=== PATIENT | female | born 1990 | race African-American/Black ===

== ENCOUNTER 2021-05-14 22:41 | Emergency (ER) | payer OTHER ==
--- OUTSIDE RECORDS SUMMARY | 2021-05-14 22:47 | XMS REPORT | Continuity of Care Document ---
:1990 Author Organization [facility] t Address [address] [place] [address] Care Team Providers Name Role Phone Unknown Primary Care Physician Unavailable Palmer WANG Attending Clinician Georgi Magana DO Attending Clinician PALMER Attending Clinician Unavailable Radha Tello Attending Clinician Payers Payer Name Policy Type Policy Number Effective Date Expiration Date S art [employer] [id number] 2016 00:00:00 Problems Condition Condition Condition Status Onset Resolution Last Treating Co mments Source Name Details Category Date Date Treatment Clinician Date History of History of Problem Active U [facility] herpes herpes [place] of genital[place] genitalis [place] Supervisio Supervisio Problem Active U nivers n of n of ity of normal normal [place] Phys ici ans Encounter Encounter Problem Active Uni vers for for [place] of Physici ans test test result result with with physical physical examinatio examinatio n n Scoliosis Scoliosis Problem Active Uni vers [place] of [place] [facility] Nausea Nausea Problem Active [facility] [place] [facility] UTI UTI Problem Active Univers (urinary (urinary ity of tract tract [place] infection) infection) Ph ysici ans 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 ity of [place] [facility] ans Anemia Anemia Problem Active [facility] [place] [facility] Need for Need for Problem Active Unive rs influenza influenza [place] of vaccin[place] vaccinatio [place] n Physici ans Genital Genital Problem Active Univers herpes herpes it[place] of [place] Physici ans Encounter Encounter Problem Active Uni vers for for [place] Physici ans Breech Breech Problem Active Univers presentati presentati it [place] of [place], [place], [place] 1 1 Physici ans Screen for Screen for Problem Active U nivers STD STD [place] of (sexually (sexually [place] transmitte transmitte Ph ysici d disease) d disease) an s Well woman Well woman Problem Active U nivers exam exam [place] of [place] [facility] ans General General Problem Active Univers counseling counseling [place] of and advice and advice [place] for for Physici contracept contracept an s candie candie management management Vitamin D Vitamin D Problem Active Uni vers deficiency deficiency it y of [place] Physici ans BV BV Problem Active Univers (bacterial (bacterial it y of vaginosis) vaginosis) [place] Irregular Irregular Problem Active Uni vers menses menses ity of [place] Physici ans Problem Active Uni vers test test ity of negative negative [place] Physici ans Allergies, Adverse Reactions, Alerts Allergy Allergy Status Severity Reaction(s) Onset Inactive Treating Comm ents Source Name Type Date Date Clinician Aspirin Allergy Active Swelling Due to [facility] to 07-15 ulcerativ Health substanc 00:00: e colitis e 00 aspirin Allergy Active Univers to drug ity of (finding [place] ) Physici ans aspirin Drug Active [facility] aspirin Drug Active [facility] aspirin Drug Active [facility] aspirin Drug Active [facility] aspirin Drug Active [facility] aspirin Drug Active [facility] aspirin Drug Active [facility] aspirin Drug Active [facility] aspirin Drug Active [facility] aspirin Drug Active [facility] aspirin Drug Active [facility] Social History Social Habit Start Date Stop Date Quantity Comments Source ASSERTION 2021-02-22 [facility] 00:[facility] Std Drinks [facility] Alcohol Comment Exposure to Not sure [facility] SARS-CoV-2 (event) Alcohol intake 2021-04-26 2021-04-26 Ex-drinker [place] [facility] 00:00:00 00:00:00 (finding) History [facility] 2021-04-26 2021-04-26 1 [facility] Alcohol Frequency 00:00:00 00:00:00 History SDOH 2021-04-26 2021-04-26 1 [facility] Alcohol Binge 00:00:00 00:00:00 Tobacco use and 2021-03-12 2021-03-12 Smokeless tobacco [facility] exposure 00:00:00 00:00:00 non-user Sex Assigned At [birth year] [place] [facility] 00:00:00 00:00:00 Smoking Status Start Date Stop Date Source Never smoked tobacco [facility] Medications Ordered Filled Start Stop Current Ordering Indication Dosage Frequency Signature Comments Components Source Medication Medication Date Date Medication? Clinician (SIG) Name Name metoclopram Yes 10mg Q.25D Take 10 mg [facility] vitaliy 1-20 by mouth 4 Health (Reglan) 10 13:43: (four) MG tablet 10 times a day. ondansetron 2021- Yes [id number] 4mg Take 1 [facility] ODT 1-20 02-04 tablet (4 Health (Zofran-ODT 00:00: 05:59 mg total) ) 4 MG 00 :00 by mouth disintegrat every 8 ing tablet (eight) hours if needed for nausea or vomiting for up to 14 days. aspirin 81 2020-04- Yes [id number] 81mg QD Chew 1 UT MG chewable 2-23 12-24 tablet (81 H ealth tablet 00:00: 05:59 mg total) 00 :00 1 (one) time each day. Prenat-Fe 2020-04 Yes [id number] One tab UT Poly-Methfo 2-07 daily Health l-FA-DHA 00:00: (Vitafol 00 Ultra) 29-0.6-0.4- 200 MG capsule Doxylamine- 2020-04- Yes [id number] 1{tbl} QD Take 1-2 UT Pyridoxine 2-07 03-08 tablets by Lorne dill (Diclegis) 00:00: 05:59 mouth at 10-10 MG 00 :00 night if tablet needed delayed-rel (vomiting) ease . Can increase to 4x/day meclizine Yes TAKE 1 UT (Antivert) 7-21 TABLET BY Heal th 25 MG 00:00: MOUTH tablet 00 THREE TIMES A DAY NEEDED FOR DIZZINESS valACYclovi 2019-04 Yes 500mg 500 mg. UT r (Valtrex) 1-06 Health 500 MG 00:00: tablet 00 valACYclovi valACYclovi 2019-04 Yes AZEEMA 1 QD TAKE 1 Univers r HCl - 500 r HCl - 500 1-06 MOOSA M.D. TABLET ity of MG Oral MG Oral 00:00: DAILY. [place] Tablet Tablet 00 Physici ans Vitamin D Vitamin D Yes AZEEMA 1 TAKE 1 Univers (Ergocalcif (Ergocalcif 5-10 MOOSA M.D. CAPSULE ity of abigail) 1.25 abigail) 1.25 00:00: WEEKLY [place] MG (92930 MG (83111 00 Physi ci UT) Oral UT) Oral ans Capsule Capsule Immunizations Ordered Immunization Filled Immunization Date Status Commen ts Source Name Name Fluzone Quadrivalent 2017-01-22 Completed [facility] ersity of 0.5 ML Intramuscular 00:00:00 [facility] Suspension Prefilled Syringe Tdap (Adacel) 2017-01-08 Completed [facility] 00:00:00 Marek Calderón ns Vital Signs Vital Name Observation Time Observation Value Comments Source Systolic blood 2021-04-25 119 mm[Hg] [facility] pressure 19:43:00 Diastolic blood 2021-04-25 70 mm[Hg] [facility] pressure 19:43:00 Body temperature 2021-04-25 36.11 Catherine [facility] 19:43:00 Body weight 2021-04-25 78.382 kg [facility] 19:43:00 BMI 2021-04-25 27.89 kg/m2 [facility] 19:43:00 Height/Length 2021-04-23 167.6 cm Measured 08:28:16 Weight Dosing 2021-04-23 74.80 kg 08:28:16 Height/Length 2021-04-23 167.6 cm Measured 08:27:13 Weight Dosing 2021-04-23 74.80 kg 08:27:13 Height/Length 2021-04-23 167.6 cm Measured 08:27:10 Weight Dosing 2021-04-23 74.80 kg 08:27:10 Height/Length 2021-04-23 167.6 cm Measured 08:27:06 Weight Dosing 2021-04-23 74.80 kg 08:27:06 Height/Length 2021-04-23 167.6 cm Measured 08:26:48 Weight Dosing 2021-04-23 74.80 kg 08:26:48 Systolic blood 2020-04-11 145 mm[Hg] Location: [place]; [facility] 15:02:00 Position: [place] Physician s Sitting Diastolic blood 2020-04-11 82 mm[Hg] Location: [place]; [facility] 15:02:00 Position: [place] Physician s Sitting Body height 2020-04-11 66 [in_us] University 15:02:00 [place] [facility] s Weight 2020-04-11 180.375 [lb_av] University o f 15:02:00 [place] Phys[facility] s Body mass index 2020-04-11 29.11 kg/m2 University o f (BMI) [Ratio] 15:02:00 [place] [facility] [place] Body temperature 2020-04-11 97.5 [degF] Method: [facility] 15:02:00 Temporal [place] Physician s Heart Rate 2020-04-11 88 /min [facility] 15:02:00 [place] Phys[facility] s Systolic blood 2020-02-10 103 mm[Hg] [facility] 09:17[facility] Position: [place] Physician s Sitting Diastolic blood 2020-02-10 71 mm[Hg] [facility] Position: [place] Physician s Sitting Body height 2020-02-10 66 [in_us] [facility] 09:17:00 [place] Phys[facility] s Weight 2020-02-10 175 [lb_av] [facility] 09:17:00 [place] Physician s Body mass index 2020-02-10 28.25 kg/m2 University o f (BMI) [Ratio] 09:17:00 [place] Physicia ns Heart Rate 2020-02-10 88 /min [facility] 09:17:00 [place] Phys[facility] s Body temperature 2020-02-10 97.5 [degF] Method: [facility] 09:17:00 Temporal [place] Physician s Systolic blood 2019-11-18 123 mm[Hg] Location: [place]; [facility] 09:50:00 Position: [place] Physician s Sitting Diastolic blood 2019-11-18 73 mm[Hg] Location: [place]; [facility] 09:50:00 Position: [place] Physician s Sitting Body height 2019-11-18 66 [in_us] University of 09:50:00 [place] Physician s Weight 2019-11-18 171 [lb_av] [facility] 09:50:00 [place] Phys[facility] s Body mass index 2019-11-18 27.6 kg/m2 University o f (BMI) [Ratio] 09:50:00 [place] [facility] Body temperature 2019-11-18 98.2 [degF] [facility] 09:50:00 [place] Phys[facility] s Heart Rate 2019-11-18 67 /min [facility] 09:50:00 [place] Phys[facility] s BP Systolic 2018-08-05 116 mm[Hg] Location: [place]; [facility] 09:10:00 Position: [place] Physician s Sitting BP Diastolic 2018-08-05 71 mm[Hg] Location: [place]; [facility] 09:10:00 Position: [place] Physician s Sitting Height 2018-08-05 66 [in_us] [facility] 09:10:00 [place] Phys[facility] s Weight 2018-08-05 160 [lb_av] [facility] 09:10:00 [place] Physician s Body Mass Index 2018-08-05 25.82 kg/m2 University o f Calculated 09:10:00 [place] Phys[facility] s Heart Rate 2018-08-05 76 /min [facility] 09:10:00 [place] Phys[facility] s BP Systolic 2017-08-04 132 mm[Hg] Location: [place]; [facility] 15:15:00 Position: [place] Physician s Sitting BP Diastolic 2017-08-04 75 mm[Hg] Location: [place]; [facility] 15:15:00 Position: [place] Physician s Sitting Height 2017-08-04 66 [in_us] University 15:15:00 [place] [facility] s Weight 2017-08-04 166 [lb_av] [facility] 15:15:00 [place] Phys[facility] s Body Mass Index 2017-08-04 26.79 kg/m2 University o f Calculated 15:15:00 [place] Phys[facility] s Heart Rate 2017-08-04 82 /min [facility] 15:15:00 [place] Phys[facility] s BP Systolic 2017-05-01 135 mm[Hg] Location: [place]; [facility] 10:08:00 Position: [place] Physician s Sitting BP Diastolic 2017-05-01 60 mm[Hg] Location: [place]; [facility] 10:08:00 Position: [place] Physician s Sitting Height 2017-05-01 66 [in_us] [facility] 10:08:00 [place] [facility] s Weight 2017-05-01 164 [lb_av] [facility] 10:08:00 [place] Physician s Body Mass Index 2017-05-01 26.47 kg/m2 University o f Calculated 10:08:00 [place] [facility] s Heart Rate 2017-05-01 84 /min University of 10:08:00 [place] Physician s BP Systolic 2017-04-02 123 mm[Hg] Location: [facility] 13:16:00 Position: [place] Physician s Sitting BP Diastolic 2017-04-02 76 mm[Hg] Location: [facility] 13:16:00 Position: [place] Physician s Sitting Height 2017-04-02 66 [in_us] University of 13:16:00 [place] [facility] s Weight 2017-04-02 168 [lb_av] University 13:16:00 [place] Phys[facility] s Body Mass Index 2017-04-02 27.12 kg/m2 University o f Calculated 13:16:00 [place] Phys[facility] s Heart Rate 2017-04-02 76 /min [place] of 13:16:00 [place] Physician s BP Systolic 2017-03-12 126 mm[Hg] Location: [facility] 09:34:00 Position: [place] Physician s Sitting BP Diastolic 2017-03-12 74 mm[Hg] Location: [facility] 09:34:00 Position: [place] Physician s Sitting Height 2017-03-12 66 [in_us] [facility] 09:34:00 [place] [facility] s Weight 2017-03-12 189 [lb_av] [facility] 09:34:00 [place] [facility] s Body Mass Index 2017-03-12 30.51 kg/m2 [place] [facility] f Calculated 09:34:00 [place] [facility] s Heart Rate 2017-03-12 90 /min [facility] 09:34:00 [place] [facility] s BP Systolic 2017-03-05 118 mm[Hg] Location: [facility] 09:12:00 Position: [place] Physician s Sitting BP Diastolic 2017-03-05 70 mm[Hg] Location: [facility] 09:12:00 Position: [place] Physician s Sitting Height 2017-03-05 66 [in_us] [facility] 09:12:00 [place] [facility] s Weight 2017-03-05 189 [lb_av] [place] [facility] 09:12:00 [place] [facility] s Body Mass Index 2017-03-05 30.51 kg/m2 University o f Calculated 09:12:00 [place] [facility] s BP Systolic 2017-02-25 125 mm[Hg] [facility]:01:[facility] Position: [place] Physician s Sitting BP Diastolic 2017-02-25 74 mm[Hg] Location: [place]; [place] [facility] 09:01:00 Position: [place] Physician s Sitting Height 2017-02-25 66 [in_us] University of 09:01:00 [place] [facility] s Weight 2017-02-25 186 [lb_av] University of 09:01:00 [place] [facility] s Body Mass Index 2017-02-25 30.02 kg/m2 University o f Calculated 09:01:00 [place] [facility] s Heart Rate 2017-02-25 89 /min University of 09:01:00 [place] [facility] s BP Systolic 2017-02-20 114 mm[Hg] Location: [place]; [facility] 15:37:00 Position: [place] Physician s Sitting BP Diastolic 2017-02-20 70 mm[Hg] Location: [place]; [facility] 15:37:00 Position: [place] Physician s Sitting Height 2017-02-20 66 [in_us] University 15:37:00 [place] [facility] s Weight 2017-02-20 187 [lb_av] University of 15:37:00 [place] [facility] s Body Mass Index 2017-02-20 30.18 kg/m2 University o f Calculated 15:37:00 [place] [facility] s Heart Rate 2017-02-20 82 /min [facility] of 15:37:00 [place] [facility] s BP Systolic 2017-02-19 106 mm[Hg] Location: [place]; [place] [facility] 10:39:00 Position: [place] Physician s Sitting BP Diastolic 2017-02-19 73 mm[Hg] Location: [place]; [place] [facility] 10:39:00 Position: [place] Physician s Sitting Height 2017-02-19 66 [in_us] University of 10:39:00 [place] [facility] s Heart Rate 2017-02-19 93 /min University of 10:39:00 [place] [facility] s Weight 2017-02-19 188 [lb_av] University of 10:39:00 [place] [facility] s Body Mass Index 2017-02-19 30.34 kg/m2 University o f Calculated 10:39:00 [place] [facility] s BP Systolic 2017-02-19 106 mm[Hg] Location: [place]; [facility] 10:30:00 Position: [place] Physician s Sitting BP Diastolic 2017-02-19 73 mm[Hg] Location: [place]; [facility] 10:30:00 Position: [place] Physician s Sitting Height 2017-02-19 66 [in_us] University of 10:30:00 [place] [facility] s Heart Rate 2017-02-19 93 /min [facility] 10:30:00 [place] [facility] s BP Systolic 2017-02-05 102 mm[Hg] Location: [facility] 10:15:00 Position: [place] Physician s Sitting BP Diastolic 2017-02-05 60 mm[Hg] Location: [facility]; [facility] 10:15:00 Position: [place] Physician s Sitting Height 2017-02-05 66 [in_us] [facility] 10:15:00 [place] [facility] s Weight 2017-02-05 186 [lb_av] [facility] 10:15:00 [place] [facility] s Body Mass Index 2017-02-05 30.02 kg/m2 [place] [facility] Calculated 10:15:00 [place] [facility] s BP Systolic 2017-01-22 106 mm[Hg] Location: [facility] 09:47:00 Position: [place] Physician s Sitting BP Diastolic 2017-01-22 61 mm[Hg] Location: [facility] 09:47:00 Position: [place] Physician s Sitting Height 2017-01-22 66 [in_us] [facility] 09:47:00 [place] [facility] s Heart Rate 2017-01-22 102 /min [facility] 09:47:00 [place] [facility] s Weight 2017-01-22 185 [lb_av] [facility] 09:47:00 [place] [facility] Body Mass Index 2017-01-22 29.86 kg/m2 [facility] Calculated 09:47:00 [place] Phys[facility] Procedures Procedure Date / Time Performing Clinician Source Performed [QL] TSH, 3RD 2020-04-11 00:00:00 [facility] GENERATION Physicians [QL] T4, FREE 2020-04-11 00:00:00 [facility] Physicians [QL] VITAMIN D, 2020-04-11 00:00:00 [facility] 25-HYDROXY, LC/MS/MS Physicians [QL] VITAMIN B12 2020-04-11 00:00:00 [facility] Physicians [QL] HCG, TOTAL, QN 2020-03-27 00:00:00 [facility] Physicians [Q] CHLAMYDIA/N. 2020-02-10 00:00:00 [facility] GONORRHOEAE RNA, TMA Physicians [QL] BV/ VAGINITIS 2020-02-10 00:00:00 [facility] PANEL DNA PROBE AFFIRM Physician s [Q] HEPATITIS B SURFACE 2020-02-10 00:00:00 [facility] ANTIGEN W/REFL CONFIRM Physician s [Q] HIV-1/2 Antigen and 2020-02-10 00:00:00 [facility] Antibodies, Fourth Physicians Generation, with Reflexes [QL] HEPATITIS C 2020-02-10 00:00:00 [facility] ANTIBODY Physicians [QL] RPR (DX) W/REFL 2020-02-10 00:00:00 [facility] TITER AND CONFIRMATORY Physician s TESTING [L] Comp. Metabolic 2019-11-18 00:00:00 [facility] Panel (13) Physicians [QL] CBC (INCLUDES 2019-11-18 00:00:00 [facility] DIFF/PLT) Physicians [QL] HEMOGLOBIN A1c 2019-11-18 00:00:00 [facility] Physicians [QL] LIPID PANEL 2019-11-18 00:00:00 [facility] Physicians [QL] T4, FREE 2019-11-18 00:00:00 [facility] Physicians [QL] TSH, 3RD 2019-11-18 00:00:00 [place] [facility] GENERATION Physicians [QL] CMP W/EGFR 2019-11-18 00:00:00 [place] [facility] Physicians [Q] THINPREP TIS PAP 2019-11-18 00:00:00 [facility] REFLEX HPV mRNA E6/E7 Physicians [QL] BV/ VAGINITIS 2019-11-18 00:00:00 [facility] PANEL DNA PROBE AFFIRM Physician s [L] Vitamin D, 2018-08-05 00:00:00 [facility] 25-Hydroxy, Total - Physicians Esoterix [QLH] CBC (INCLUDES 2018-08-05 00:00:00 [facility] DIFF/PLT) Physicians [QLH] CMP W/EGFR 2018-08-05 00:00:00 [facility] Physicians [QLH] HEMOGLOBIN A1c 2018-08-05 00:00:00 [facility] Physicians [QLH] LIPID PANEL 2018-08-05 00:00:00 [facility] Physicians [QLH] T4, FREE 2018-08-05 00:00:00 [place] [facility] Physicians [QLH] TSH, 3RD 2018-08-05 00:00:00 [place] [facility] GENERATION Physicians [Q] HIV-1/2 Antigen and 2018-08-05 00:00:00 [facility] Antibodies, Fourth Physicians Generation, with Reflexes [QH] HEPATITIS B 2018-08-05 00:00:00 [facility] SURFACE ANTIGEN W/REFL Physician s CONFIRM [QH] HIV AB, HIV 1/2, 2018-08-05 00:00:00 [facility] EIA, WITH REFLEXES Physicians [QLH] HEPATITIS C 2018-08-05 00:00:00 [facility] ANTIBODY Physicians [QLH] RPR 2018-08-05 00:00:00 [place] [facility] Physicians . [facility] - GC/Chlamydia 2018-08-05 00:00:00 [facility] Physicians . [facility] VPIII 2018-08-05 00:00:00 [facility] (BV Panel) Physicians [Q] HIV-1/2 Antigen and 2017-02-20 00:00:00 [facility] Antibodies, Fourth Physicians Generation, with Reflexes [QH] STREPTOCOCCUS, 2017-02-20 00:00:00 [facility] GROUP B CULTURE Physicians (Genital Strep Screen) [QLH] CBC (INCLUDES 2017-02-20 00:00:00 [facility] DIFF/PLT) Physicians [QLH] RPR 2017-02-20 00:00:00 [place] [facility] Physicians Plan of Care Planned Activity Planned Date Details Comments Source Diagnostic Test 2020-04-11 [QL] TSH, 3RD [facility] Pending 00:00:00 GENERATION [code = Physician s [QL] TSH, 3RD GENERATION] Diagnostic Test 2020-04-11 [QL] T4, FREE [code [facility] Pending 00:00:00 = [QL] T4, FREE] Physicians Diagnostic Test 2020-04-11 [QL] VITAMIN D, [facility] Pending 00:00:00 25-HYDROXY, LC/MS/MS Physici ans [code = [QL] VITAMIN D, 25-HYDROXY, LC/MS/MS] Diagnostic Test 2020-04-11 [QL] VITAMIN B12 [facility] Pending 00:00:00 [code = [QL] VITAMIN Physici ans B12] Encounters Start End Encounter Admission Attending Care Care Encounter Source Date/Time Date/Time Type Type Clinicians Facility Department ID 2021-05-08 Outpatient [facility] [id number] [place] 09:45:24 Health 2021-04-25 2021-04-25 Initial ADAMARIS Chakraborty [facility] [id number] [place] 13:40:00 14:15:12 [facility] SUGAR [id number] H [facility] [id number] [id number] AND 2 WOMENS 2020-06-26 2020-06-26 Patient [facility] [id number] 00:00:00 00:00:[address] PRIMARY [id number] [facility] [id number] PAVILLION [id number] [facility] 2020-04-11 2020-04-11 ADAMARIS [facility] [id number] Univers 14:40:00 14:40:00 t; [facility]ADO M.D. Physici ans 2020-02-10 2020-02-10 Sara CHAKRABORTY [facility] Women's [id number] Univers 09:10:00 09:10:00 t; JOHAN CHAKRABORTY [facility] Jennifer PRADO M.D. Physici ans 2019-11-18 2019-11-18 Sara CHAKRABORTY [facility] Women's [id number] Univers 09:50:00 09:50:00 t; JOHAN CHAKRABORTY [facility] Jennifer PRADO M.D. Physici ans 2019-05-11 2019-05-11 [facility] [id number] 00:00:00 00:00:00 Janett Garcia EFFICIENCY ANALYST [id number] [facility] [id number] MATERNAL [id number] & CHILD [address] [place] [address] 2019-04-11 2019-04-11 Emergency [facility] MIGUEL ANGEL [id number] 20:30:00 20:30:00 [facility] 2018-08-05 2018-08-05 ADAMARIS Fuchs [facility] [id number] Univers 09:20:00 09:20:00 t; JOHAN CHAKRABORTY, [facility] 2017-08-04 2017-08-04 Appointshaquille CHAKRABORTY [facility] Women's [id number] Univers 15:00:00 15:00:00 t; JOHAN CHAKRABORTY, [facility] 2017-05-01 2017-05-01 Appointshaquille CHAKRABORTY [facility] Women's [id number] Univers 10:10:00 10:10:00 t; JOHAN CHAKRABORTY, [facility] Jennifer [facility]ADO [facility] 2017-04-02 2017-04-02 Appointshaquille CHAKRABORTY [facility] Women's [id number] Univers 13:00:00 13:00:00 t; JOHAN CHAKRABORTY [facility] Jennifer [facility] 2017-03-12 2017-03-12 Appointshaquille CHAKRABORTY [facility] Womens [id number] Univers 09:20:00 09:20:00 t; [facility] 2017-03-05 2017-03-05 Appointshaquille CHAKRABORTY [facility] Women's [id number] Univers 09:20:00 09:20:00 t; [facility] 2017-02-25 2017-02-25 Appointshaquille CHAKRABORTY [facility] Womens [id number] Univers 09:00:00 09:00:00 t; JOHAN [facility]ORTY [facility] 2017-02-20 2017-02-20 Appointshaquille CHAKRABORTY [facility] Womens [id number] Univers 15:00:00 15:00:00 t; JOHAN [facility]AKRABORTY [facility] 2017-02-19 2017-02-19 Appointmen PALMER, ADAMARIS [facility]'s [id number] Univers 10:20:00 10:20:00 t; JOHAN CHAKRABORTY Romeo ity federico PRADO M.D. [facility].D. Physici ans 2017-02-05 2017-02-05 Appointmen PALMER, ADAMARIS UTP [id number] Univers 10:20:00 10:20:00 t; JOHAN CHAKRABORTY ity of Jennifer PRADO [facility].Lj. Physici ans 2017-01-22 2017-01-22 Appointmen PALMER, UTP UTP [id number] Univers 09:40:00 09:40:00 t; JOHAN CHAKRABORTY ity federico PRADO M.D. [facility].Lj. Physici ans 2017-01-08 2017-01-08 Appointmen PALMER, ADAMARIS UTP [id number] Univers 09:20:00 09:20:00 t; JOHAN CHAKRABORTY ity federico PRADO [facility].D. [facility]ici [facility] 2016-12-25 2016-12-25 Appointmen PALMER, UTP UTP [id number] Univers 09:30:00 09:30:00 t; JOHAN CHAKRABORTY ity federico PRADO M.D. [facility] 2016-12-11 2016-12-11 Appointmen PALMER, UTP UTP [id number] Univers 09:30:00 09:30:00 t; JOHAN CHAKRABORTY ity federico PRADO M.D. [facility] 2016-11-28 2016-11-28 Appointmen PALMER, UTP UTP [id number] Univers 09:30:00 09:30:00 t; JOHAN CHAKRABORTY ity federico PRADO M.D. [facility] 2016-11-14 2016-11-14 Appointmen PALMER, UTP UTP [id number] Univers 09:30:00 09:30:00 t; JOHAN CHAKRABORTY ity federico PRADO M.D. [facility] 2016-10-20 2016-10-20 Appointmen PALMER, UTP UTP [id number] Univers 12:30:00 12:30:00 t; KEVINVONDAJOHAN, itweston DEANNSCJennifer [place] Jennifer Physici ans 2016-10-17 2016-10-17 Appointmen ADAMARIS CHAKRABORTY UTP [id number] Univers 13:00:00 13:00:00 t; KEVINVONDA JOHAN itweston Jennifer PRADO [place] Jennifer Physici ans 2016-10-02 2016-10-02 Appointmen ADAMARIS CHAKRABORTY UTP [id number] Univers 14:00:00 14:00:00 t; KEVINVONDA JOHAN itweston Jennifer PRADO [place] Jennifer Physici ans 2016-09-22 2016-09-22 Appointmen ADAMARIS CHAKRABORTY UTP [id number] Univers 12:30:00 12:30:00 t; KEVINVONDA JOHAN itweston Jennifer PRADO [place] Jennifer Physici ans 2016-08-25 2016-08-25 Appointmen ADAMARIS CHAKRABORTY UTP [id number] Univers 12:00:00 12:00:00 t; JOHAN CHAKRABORTY itweston Jennifer [facility] 2016-07-28 2016-07-28 Appointmen ADAMARIS CHAKRABORTY UTP [id number] Univers 12:00:00 12:00:00 t; JOHAN CHAKRABORTY itweston Jennifer [facility] Results Test Description Test Time Test Comments Results Result Comments Source [QL] T4, FREE 2020-04-18 14:13:00 Test Item Value Reference Range Interpretation Comme nts T4, FREE (test code = T4, FREE) 1.2 ng/dl 0.8-1.8 N [facility][QL] TSH, 3RD [id number] 14:13:00 Test Item Value Reference Range Interpretation Comments TSH; Normal (test 0.64 {MIU/L} N Reference Range code = 09657-4) > or = 20 Years 0.40-4.5 0 Range s First trimes ter 0.26-2.66 Second trimeste r 0.55-2.73 Third trimester 0.43-2.91 [facility][QL] VITAMIN [id number] 14:13:00 Test Item Value Reference Range Interpretation Comments VITAMIN B12 (test code = VITAMIN 720 pg/ml 200-1100 N B12) [facility][QL] VITAMIN D, 25-HYDROXY, LC/MS/[id number] 14:13:00 Test Item Value Reference Range Interpretation Comments VITAMIN 13 ng/ml 30-100 Vitamin D Statu s D,25-OH,TOTAL,IA 25-OH Vitam in D: (test code = VITAMIN Deficie ncy: D,25-OH,TOTAL,IA) <20 ng/mLInsufficie ncy: 20 - 29 ng/mLOptimal: > or = 30 n g/mL For 25-OH Vitamin D testing on patients on D2-supplementat ion and patients for wh om quantitation of D2 and D3 fractions is re quired, the QuestAssure D(TM)25-OH VIT D, (D2,D3), LC/MS/MS is recommended: order code 22808 (pat ients >2yrs).See Note 1 Note 1 For additional information, pl ease refer to http://educatio nQlika/fa q/ANB242 (This link is b eing provided for informational/e ducational purposes only.) [facility][QL] HCG, TOTAL, [id number] 14:58:00 Test Item Value Reference Range Interpretation Comments HCG, TOTAL, QN <3 N Reference Ran geNon or (test code = HCG, premenopau elizabeth TOTAL, QN) <5Postmenopausa l <10 Values fr om different assay methods m ay vary.The use of this assay t o monitor or to diagnose patien ts with cancer or any conditio n unrelatedto has n ot been cleared or approved byt he FDA or the racing driver of the assay. [facility][O] Urine Test (in office)2020-02-10 09:22:00 Test Item Value Reference Range Interpretation Comments Test, Urine; Normal (test negative N code = 2106-3) [facility][Q] HIV-1/2 Antigen and Antibodies, Fourth Generation, with [id number] 00:00:00 Test Item Value Reference Range Interpretation Comments HIV AG/AB, 4TH GEN; TNP N TEST NOT PERFORMED No Normal (test code = suitable specimen 63042-6) received. [facility][Q] HEPATITIS B SURFACE ANTIGEN W/REFL CONFIRM 2020-02-10 00:00:00 Test Item Value Reference Range Interpretation Comments HEPATITIS B SURFACE TNP N TEST NOT PERFORMED No ANTIGEN; Normal (test suitab le specimen code = 5195-3) received. [facility][QL] HEPATITIS C [id number] 00:00:00 Test Item Value Reference Range Interpretation Comments HEPATITIS C ANTIBODY; TNP N TEST N OT PERFORMED No Normal (test code = suitable specimen 00315-5) received. [facility][QL] BV/ VAGINITIS PANEL DNA PROBE AFFIRM 2020-02-10 00:00:00 Test Item Value Reference Range Interpretation Comments TRICHOMONAS: (test code = NOT DETECTED NOT DETECTED N TRICHOMONAS:) GARDNERELLA: (test code = NOT DETECTED NOT DETECTED N GARDNERELLA:) SINDI: (test code = SINDI:) NOT DETECTED NOT DETECTED N [facility][Q] CHLAMYDIA/N. GONORRHOEAE RNA, [id number] 00:00:00 Test Item Value Reference Range Interpretation Comments CHLAMYDIA NOT DETECTED NOT DETECTED N TRACHOMATIS RNA, TMA, UROGENITAL; Normal (test code = 52422-7) NEISSERIA NOT DETECTED NOT DETECTED N GONORRHOEAE RNA, TMA, UROGENITAL; Normal (test code = 01736-7) See Comment (test See Comment The analyt ical code = See Comment) performa nce characteristics of thisassay, when used to test SurePat h(TM) specimens have beendetermined by [facility]. The modifications h avenot been cleared or approved by the FDA. This assay hasb een validated pursu ant to the CLIA regula tions and isused for clinical purpos es. For additional information, pl ease refer tohttps://educa tion.[employer]. com/faq /EHT584(This li nk is being provided for information/edu cationa l purposes only .) [facility][QL] RPR (DX) W/REFL TITER AND CONFIRMATORY [id number] 00:00:00 Test Item Value Reference Range Interpretation Comments RPR (DX) W/REFL TITER AND TNP N TE ST NOT PERFORMED No CONFIRMATORY TESTING (test s uitable specimen code = RPR (DX) W/REFL recei marco antonio. TITER AND CONFIRMATORY TESTING) [facility][QL] LIPID [id number] 10:45:00 Test Item Value Reference Range Interpretation Comments CHOLESTEROL, TOTAL; 152 mg/dl <200 N Normal (test code = 2093-3) HDL CHOLESTEROL; 52 mg/dl > OR = 50 N Normal (test code = 5-9) TRIGLYCERIDES; 44 mg/dl <150 N Normal (test code = 2571-8) LDL-CHOLESTEROL; 87 {MG/DL N Reference r trinidad: Normal (test code = ACOSTA} <100 Rishabh irable range 39545-9) <100 mg/dL for primary prevent ion; <70 mg/dL for patients with C HD or diabetic patien ts with > or = 2 C HD risk factors. L DL-C is now calculat ed using the Jamie calculation, wh ich is a validated novel method providin g better accuracy than the Friedewald equation in the estimation of L DL-C. Silvestre SS et al . SIVAN. 2013;310( 19): 2164-9388 (http://educati on.[employer]. com/f aq/LTA918) CHOL/HDLC RATIO 2.9 {CALC} <5.0 N (test code = CHOL/HDLC RATIO) NON HDL CHOLESTEROL 100 {MG/DL <130 N For kristi ents with (test code = NON HDL ACOSTA} diabete s plus 1 CHOLESTEROL) major ASCVD ris k factor, treatin g to a non-HDL-C goa l of <100 mg/dL (LDL -C of <70 mg/dL) is considered a therapeutic opt ion. [facility][QL] CBC (INCLUDES DIFF/PLT)2019-11-18 10:45:00 Test Item Value Reference Range Interpretation Comments WHITE BLOOD CELL COUNT 5.8 {Thousand/u} 3.8-10.8 N (test code = WHITE BLOOD CELL COUNT) RED BLOOD CELL COUNT (test 4.57 {Million/uL} 3.80-5.10 N code = RED BLOOD CELL COUNT) HEMOGLOBIN; Normal (test 12.7 g/dl 11.7-15.5 N code = 07048-0) HEMATOCRIT; Normal (test 38.8 % 35.0-45.0 N code = 4544-3) MCV; Normal (test code = 84.9 fL 80.0-100.0 N 787-2) MCHC; Normal (test code = 32.7 g/dl 32.0-36.0 N 90169-6) RDW; Normal (test code = 13.4 % 11.0-15.0 N 788-0) PLATELET COUNT; Normal 156 {Thousand/u} 140-400 N (test code = 777-3) MPV; Above High Threshold 13.3 fL 7.5-12.5 (test code = 28612-2) ABSOLUTE NEUTROPHILS (test 3178 {cells/uL} 8685-2661 N code = ABSOLUTE NEUTROPHILS) ABSOLUTE LYMPHOCYTES (test 1937 {cells/uL} 850-3900 N code = ABSOLUTE LYMPHOCYTES) ABSOLUTE MONOCYTES (test 365 {cells/uL} 200-950 N code = ABSOLUTE MONOCYTES) ABSOLUTE EOSINOPHILS (test 278 {cells/uL} 15-500 N code = ABSOLUTE EOSINOPHILS) ABSOLUTE BASOPHILS (test 41 {cells/uL} 0-200 N code = ABSOLUTE BASOPHILS) NEUTROPHILS (test code = 54.8 % N NEUTROPHILS) LYMPHOCYTES (test code = 33.4 % N LYMPHOCYTES) MONOCYTES; Normal (test 6.3 % N code = 26942-3) EOSINOPHILS; Normal (test 4.8 % N code = 25940-5) BASOPHILS; Normal (test 0.7 % N code = 23976-1) [facility][QL] T4, [id number] 10:45:00 Test Item Value Reference Range Interpretation Comments T4, FREE (test code = T4, FREE) 1.2 ng/dl 0.8-1.8 N [facility][QL] TSH, 3RD [id number] 10:45:00 Test Item Value Reference Range Interpretation Comments TSH; Normal (test 1.00 {MIU/L} N Reference Range code = 59734-6) > or = 20 Years 0.40-4.5 0 Range s First trimes ter 0.26-2.66 Second trimeste r 0.55-2.73 Third trimester 0.43-2.91 [facility][QL] HEMOGLOBIN [id number] 10:45:00 Test Item Value Reference Range Interpretation Comments HEMOGLOBIN A1c; 5.3 {% of <5.7 N For the purp ose of Normal (test code total} screening for the = 4548-4) presence ofdiab etes: <5.7% Con sistent with the absenc e of diabetes5.7-6.4 % Consistent with increased risk for diabetes (prediabetes)> or =6.5% Consistent wit h diabetes This a ssay result is consi stent with a decrease d riskof diabetes. Curre ntly, no consensus exist s regarding use ofhemoglobin A1 c for diagnosis of di abetes in children. Ac cording to [place] [employer] [employer] (ADA)guidelines , hemoglobin A1c <7.0% represents optimalcontrol in non- di abetic patients. Differentmetric s may apply to specif ic patient populat ions. Standards of Me dical Care in Diabete s(ADA). [facility][Q] THINPREP TIS PAP REFLEX HPV mRNA E6/E7 2019-11-18 00:00:00 Test Item Value Reference Range Interpretation Comments CLINICAL See Comment N None given INFORMATION: (test code = CLINICAL INFORMATION:) LMP: (test code = See Comment N NONE GIVEN LMP:) PREV. PAP: (test See Comment N NONE GIVEN code = PREV. PAP:) PREV. BX: (test See Comment N NONE GIVEN code = PREV. BX:) SOURCE: (test code See Comment N Cervix, E ndocervix = SOURCE:) STATEMENT OF See Comment N Satisfactory fo r ADEQUACY: (test evaluation.E ndocervical/ code = STATEMENT transformat ion zone OF ADEQUACY:) componentprese nt.Age and/or menstrua l status not provided INTERPRETATION/RES See Comment N Negative for ULT:; Normal (test intraepit helial lesion code = 97349-0) or malignanc y. COMMENT:; Normal See Comment N This Pap te st has been (test code = evaluated with ) computerassiste d technology. WOMEN'S HEALTH CARE NURSE PRACTITIONER: See Comment N LLL,CT(ASC P)CT screening (test code = location: [facility] WOMEN'S HEALTH CARE NURSE PRACTITIONER:) [place] [id number], [place] [id number] See Comment (test See Comment EXPLANATOR Y NOTE: The code = See Pap is a screen ing test Comment) for cervical ca ncer. It is not a diagno stic test and is subject to false negative and fa lse positive result s. It is most reliable w hen a satisfactory sa mple, regularly obtai yamil, is submitted with relevant clinical findin gs and history, and wh en the Pap result is e valuated along with hist oric and current clinica l information. [facility][QL] BV/ VAGINITIS PANEL DNA PROBE AFFIRM 2019-11-18 00:00:00 Test Item Value Reference Range Interpretation Comments TRICHOMONAS: (test code = NOT DETECTED NOT DETECTED N TRICHOMONAS:) GARDNERELLA: (test code = NOT DETECTED NOT DETECTED N GARDNERELLA:) SINDI: (test code = SINDI:) NOT DETECTED NOT DETECTED N [facility]icians[facility]PR [id number] 16:26:57 Test Item Value Reference Range Interpretation Comments RPR Qual (test code = RPR Qual) Non-Reactive Non-Reactive Reactive Control (test code = Reactive Reactive Control) Weak Reactive Control (test Weak Reactive code = Weak Reactive Control) Non-Reactive Control (test code Non-Reactive = Non-Reactive Control) Lot # (test code = Lot #) [id number] N Expiration Dt (test code = 02-04-2020 N Expiration Dt) Thyroid Stimulating [id number] 11:20:02 Test Item Value Reference Range Interpretation Comments TSH (test code = TSH) 1.240 mIU/mL 0.270-4.200 Lipid [id number] 11:15:20 Test Item Value Reference Range Interpretation Comments Cholesterol Total 155 mg/dL 0-200 RISK OF HE ART (test code = DISEASEPublishe d by Cholesterol Total) [place] [employer] Cecilia lyte Optimal Borderl ine Increased RiskC HOL <200 200-239 >2 40TRIG <150 150-199 >2 00HDL Male >60 <40H DL Female >60 <5 0LDL <100 130-159 >1 60LDL Near optimal is 100-129 Triglycerides (test 63 mg/dL 9-200 code = Triglycerides) HDL (test code = HDL) 64 mg/dL 50-60 H LDL (test code = LDL) 78 mg/dL 0-130 The eq uation being used in this calcula tion is LDL = (Chol - H DL) - (Trig / 5) VLDL (test code = 13 mg/dL 5-40 The equati on being used VLDL) in this calcula tion is VLDL = Trig / 5 Chol/HDL (test code = 2.4 ratio 0.0-4.4 Chol/HDL) LDL/HDL Ratio (test 1 N The equa tion being used code = LDL/HDL Ratio) in thi s calculation is LDL/HDL Ratio=L DL Calc/HDL Chol Urine Drug [id number] 22:17:44 Test Item Value Reference Range Interpretation Comments Amphetamine Screen Ur Negative Negative (test code = Amphetamine Screen Ur) Barbiturate Screen Ur Negative Negative (test code = Barbiturate Screen Ur) Benzodiazepines Ur (test Negative Negative code = Benzodiazepines Ur) Cocaine Screen Ur (test Negative Negative code = Cocaine Screen Ur) U Methadone Scr (test Negative Negative code = U Methadone Scr) Opiate Screen Ur (test Negative Negative code = Opiate Screen Ur) U PCP Scrn (test code = Negative Negative U PCP Scrn) Cannabinoid Screen Ur Negative Negative (test code = Cannabinoid Screen Ur) U TCA (test code = U Negative Negative The res ults of all TCA) drug screen kalpana ts are only preliminar y. Clinical consideration a nd professional ju dgment should be appli ed to any drug of abu se test result, particularly wh en preliminary pos itive results are obt ained. Please order a separate confir matory test if desired . HCG Qualitative [id number] 22:17:43 Test Item Value Reference Range Interpretation Comments hCG Ur (test code = Positive If the r esult is hCG Ur) "Negative" in p atients suspected to be , recom mend retest with a s ample obtained 48 to 72 hours later, or by ordering a quantitative as say. If the result i s "Borderline" te sting should be repea kortney in 48 to 72 hours. Lot # (test code = [id number] N Lot #) Expiration Dt (test 2020-05-06 N code = Expiration Dt) Neg Control (test Negative code = Neg Control) Pos Control (test Positive code = Pos Control) Internal QC (test Acceptable code = Internal QC) Urinalysis with Culture, if [id number] 21:59:26 Test Item Value Reference Range Interpretation Comments UA Color (test code = YELLO Yellow UA Color) UA Appear (test code = CLEAR Clear UA Appear) UA pH (test code = UA 6.5 pH) UA Spec Grav (test 1.016 1.001-1.035 code = UA Spec Grav) UA Glucose (test code NEG Negative = UA Glucose) UA Bili (test code = NEG Negative UA Bili) UA Ketones (test code NEG Negative = UA Ketones) UA Blood (test code = NEG Negative UA Blood) UA Protein (test code NEG Negative = UA Protein) UA Urobilinogen (test 0.2 mg/dL N code = UA Urobilinogen) UA Nitrite (test code NEG Negative = UA Nitrite) UA Leuk Est (test code NEG Negative = UA Leuk Est) UA Micro Ind? (test Not Indicated Not Indicated Result created by code = UA Micro Ind?) rule [id number] _IN D Comprehensive Metabolic [id number] 21:49:42 Test Item Value Reference Range Interpretation Comments Sodium Level (test code = Sodium 134.0 mmol/L 135.0-145.0 L Level) Potassium Level (test code = 4.3 mmol/L 3.5-5.1 Potassium Level) Chloride Level (test code = 100 mmol/L 98-105 Chloride Level) CO2 (test code = CO2) 23 mmol/L 22-29 Anion Gap (test code = Anion 11 mmol/L 7-16 Gap) BUN (test code = BUN) 11.30 mg/dL 6.00-20.00 Creatinine Level (test code = 0.70 mg/dL 0.50-0.90 Creatinine Level) BUN/Creat Ratio (test code = 16 N BUN/Creat Ratio) Glucose Level (test code = 94 mg/dL 70-115 Glucose Level) Calcium Level (test code = 9.4 mg/dL 8.3-10.5 Calcium Level) Alk Phos (test code = Alk Phos) 62 U/L 35-104 Bilirubin Total (test code = <0.1 mg/dL 0.1-0.9 Bilirubin Total) Albumin Level (test code = 4.1 g/dL 3.5-5.2 Albumin Level) Protein Total (test code = 7.4 g/dL 6.4-8.3 Protein Total) ALT (test code = ALT) 8 U/L 1-33 AST (test code = AST) 12 U/L 1-32 Globulin (test code = Globulin) 3.3 g/dL 2.9-3.1 H A/G Ratio (test code = A/G 1.2 ratio N Ratio) Comprehensive Metabolic [id number] 21:49:42 Test Item Value Reference Range Interpretation Comments Sodium Level (test 134.0 mmol/L 135.0-145.0 L code = Sodium Level) Potassium Level 4.3 mmol/L 3.5-5.1 (test code = Potassium Level) Chloride Level (test 100 mmol/L 98-105 code = Chloride Level) CO2 (test code = 23 mmol/L 22-29 CO2) Anion Gap (test code 11 mmol/L 7-16 = Anion Gap) BUN (test code = 11.30 mg/dL 6.00-20.00 BUN) Creatinine Level 0.70 mg/dL 0.50-0.90 (test code = Creatinine Level) BUN/Creat Ratio 16 N (test code = BUN/Creat Ratio) Glucose Level (test 94 mg/dL 70-115 code = Glucose Level) Calcium Level (test 9.4 mg/dL 8.3-10.5 code = Calcium Level) Alk Phos (test code 62 U/L 35-104 = Alk Phos) Bilirubin Total <0.1 mg/dL 0.1-0.9 (test code = Bilirubin Total) Albumin Level (test 4.1 g/dL 3.5-5.2 code = Albumin Level) Protein Total (test 7.4 g/dL 6.4-8.3 code = Protein Total) ALT (test code = 8 U/L 1-33 ALT) AST (test code = 12 U/L 1-32 AST) Globulin (test code 3.3 g/dL 2.9-3.1 H = Globulin) A/G Ratio (test code 1.2 ratio N = A/G Ratio) eGFR AA (test code = >60 N eGFR (e stimated eGFR AA) mL/min/1.73 m2 Glomerular Filtration Rate ) is an estimated va lue, calculated from the patient's serum creatinine usin g the MDRD equation. It is NOT the patient 's actual GFR. The eGFR provides a more clinically usef ul measure of kidn ey disease than se rum creatinine alone.This calculation rayne es sex and race in to account, if the information is provided. If th e race is not provided, and t he patient is -Colleen n, multiply by 1.2 12. If sex is not provided, and t he patient is fema le, multiply by 0.7 42. Results for pat ients <18 years of ag e have not been validated by e MDRD study and should be interpreted wit h caution. eGFR R esult Interpretation: eGFR > or = 60 is in the Normal RangeeGF R < 60 may mean kid buzz diseaseeGFR < 1 5 may mean kidney failure Rang es recommended by the National Kidney Foundation, http://nkdep.ni h.gov Alcohol [id number] 21:49:42 Test Item Value Reference Range Interpretation Comments Ethanol Level (test <0.00 g/dL 0.00-0.01 Intoxica kortney 0.080 g/dL code = Ethanol or more Level) Ethanol Inst (test <0 N code = Ethanol Inst) Comprehensive Metabolic [id number] 21:49:42 Test Item Value Reference Range Interpretation Comments Sodium Level (test 134.0 mmol/L 135.0-145.0 L code = Sodium Level) Potassium Level 4.3 mmol/L 3.5-5.1 (test code = Potassium Level) Chloride Level (test 100 mmol/L 98-105 code = Chloride Level) CO2 (test code = 23 mmol/L 22-29 CO2) Anion Gap (test code 11 mmol/L 7-16 = Anion Gap) BUN (test code = 11.30 mg/dL 6.00-20.00 BUN) Creatinine Level 0.70 mg/dL 0.50-0.90 (test code = Creatinine Level) BUN/Creat Ratio 16 N (test code = BUN/Creat Ratio) Glucose Level (test 94 mg/dL 70-115 code = Glucose Level) Calcium Level (test 9.4 mg/dL 8.3-10.5 code = Calcium Level) Alk Phos (test code 62 U/L 35-104 = Alk Phos) Bilirubin Total <0.1 mg/dL 0.1-0.9 (test code = Bilirubin Total) Albumin Level (test 4.1 g/dL 3.5-5.2 code = Albumin Level) Protein Total (test 7.4 g/dL 6.4-8.3 code = Protein Total) ALT (test code = 8 U/L 1-33 ALT) AST (test code = 12 U/L 1-32 AST) Globulin (test code 3.3 g/dL 2.9-3.1 H = Globulin) A/G Ratio (test code 1.2 ratio N = A/G Ratio) eGFR AA (test code = >60 N eGFR (e stimated eGFR AA) mL/min/1.73 m2 Glomerular Filtration Rate ) is an estimated va lue, calculated from the patient's serum creatinine usin g the MDRD equation. It is NOT the patient 's actual GFR. The eGFR provides a more clinically usef ul measure of kidn ey disease than se rum creatinine alone.This calculation rayne es sex and race in to account, if the information is provided. If th e race is not provided, and t he patient is -Colleen n, multiply by 1.2 12. If sex is not provided, and t he patient is fema le, multiply by 0.7 42. Results for pat ients <18 years of ag e have not been validated by [facility] MDRD study and should be interpreted wit h caution. eGFR R esult Interpretation: eGFR > or = 60 is in the Normal RangeeGF R < 60 may mean kid buzz diseaseeGFR < 1 5 may mean kidney failure Rang es recommended by the National Kidney Foundation, http://nkdep.ni h.gov eGFR Non-AA (test >60.00 N eGFR (inga mated code = eGFR Non-AA) mL/min/1.73 m2 Glomer ular Filtration Rate ) is an estimated va lue, calculated from the patient's serum creatinine usin g the MDRD equation. It is NOT the patient 's actual GFR. The eGFR provides a more clinically usef ul measure of kidn ey disease than se rum creatinine alone.This calculation rayne es sex and race in to account, if the information is provided. If th e race is not provided, and t he patient is -Colleen n, multiply by 1.2 12. If sex is not provided, and t he patient is fema le, multiply by 0.7 42. Results for pat ients <18 years of ag e have not been validated by [facility] MDRD study and should be interpreted wit h caution. eGFR R esult Interpretation: eGFR > or = 60 is in the Normal RangeeGF R < 60 may mean kid buzz diseaseeGFR < 1 5 may mean kidney failure Rang es recommended by the National Kidney Foundation, http://nkdep.ni h.gov IG [id number] 21:48:40 Test Item Value Reference Range Interpretation Comments IG (test code = IG) 0.7 % 0.0-5.0 IG Abs (test code = IG Abs) 0 x10 N Complete Blood Count with [id number] 21:48:40 Test Item Value Reference Range Interpretation Comments WBC (test code = WBC) 8.7 x10 4.4-10.5 RBC (test code = RBC) 4.23 x10 3.75-5.20 Hgb (test code = Hgb) 12.4 g/dL 12.2-14.8 Hct (test code = Hct) 36.6 % 36.5-44.4 MCV (test code = MCV) 86.50 fL 80.00-100.00 MCHC (test code = 33.90 g/dL 32.00-37.50 MCHC) MCH (test code = MCH) 29.3 pg 27.0-32.5 RDW CV (test code = 14.2 % 11.5-14.5 RDW CV) Platelets (test code = 153.0 x10 140.0-440.0 Platelets) MPV (test code = MPV) 12.6 fL N Slide Review (test Auto Auto Result cr eated by code = Slide Review) GL_SJM_ SLIDE_REV_AUTO nRBC (test code = 0 N nRBC) NRBC Abs (test code = 0.00 x10 N NRBC Abs) IPF (test code = IPF) 0 % N Automated [id number] 21:48:40 Test Item Value Reference Range Interpretation Comments Neutro Auto (test code = Neutro 62.7 % 36.0-70.0 Auto) Lymph Auto (test code = Lymph Auto) 27.0 % 12.0-44.0 [place] Auto (test code = [place] Auto) 6.5 % 0.0-11.0 Eos, Auto (test code = Eos, Auto) 3.0 % 0.0-7.0 Basophil Auto (test code = Basophil 0.1 % 0.0-2.0 Auto) Neutro Absolute (test code = Neutro 5.4 x10 1.6-7.4 Absolute) Lymph Absolute (test code = Lymph 2.34 x10 .50-4.60 Absolute) [place] Absolute (test code = [place] .56 x10 .00-1.20 Absolute) Eos Absolute (test code = Eos 0.26 x10 0.00-0.74 Absolute) Baso Absolute (test code = Baso 0.01 x10 0.00-0.21 Absolute) [[facility]] CBC (INCLUDES DIFF/PLT)2018-08-05 09:52:01 Test Item Value Reference Range Interpretation Comments WBC (test code = 6690-2) 5.8 {K/CMM} 3.7-10.4 RBC (test code = 789-8) 4.66 {M/CMM} 4.20-5.40 Hgb (test code = 718-7) 13.4 g/dl 12.0-16.0 Hct (test code = 98962-3) 41.0 % 36.0-48.0 MCV (test code = 787-2) 88.1 fL 80.0-98.0 MCH (test code = 785-6) 28.7 pg 27.0-31.0 MCHC (test code = 786-4) 32.6 g/dl 32.0-36.0 RDW (test code = 788-0) 14.3 % 11.5-14.5 Platelet; Below Low Threshold 132 {K/CMM} 133-450 (test code = 36670-5) Mean Platelet Volume; Above High 11.7 fL 7.4-10.4 Threshold (test code = 48956-0) [facility]] [id number] 09:52:01 Test Item Value Reference Range Interpretation Comments Segmented Neutrophils (test code 56.2 % 45.0-75.0 = 90924-2) Monocytes (test code = 09919-6) 7.4 % 2.0-12.0 Lymphocytes (test code = 50764-4) 31.9 % 20.0-40.0 Eosinophils (test code = 38123-7) 4.0 % 0.0-4.0 Basophils (test code = 706-2) 0.5 % 0.0-1.0 Segs-Bands # (test code = 3.3 {K/CMM} 1.5-8.1 82242-9) Lymphocytes # (test code = 1.8 {K/CMM} 1.0-5.5 81096-0) Monocytes # (test code = 63472-0) 0.4 {K/CMM} 0.0-0.8 Eosinophils # (test code = 0.2 {K/CMM} 0.0-0.5 81819-7) [facility]] HEMOGLOBIN [id number] 09:52:01 Test Item Value Reference Range Interpretation Comments Hemoglobin A1c; Above High Threshold 5.9 % <=5.6 (test code = 4548-4) [facility][] HEPATITIS B SURFACE ANTIGEN W/REFL CONFIRM 2018-08-05 09:52:01 Test Item Value Reference Range Interpretation Comments Hepatitis B Surface Antigen (test Negative Negative code = 5195-3) [facility]] CMP [id number] 09:52:01 Test Item Value Reference Range Interpretation Comments Sodium Level 139 {mEq/l} 135-145 (test code = 2951-2) Potassium Level 4.2 {mEq/l} 3.5-5.1 (test code = 2823-3) Chloride Level 106 {mEq/l} 95-109 (test code = 2075-0) Carbon Dioxide 24 {mEq/l} 24-32 (test code = 2027-9) AGAP (test code = 13.2 {mEq/l} 10.0-20.0 09363-8) Glucose Lvl (test 81 mg/dl 70-99 Adult refe rence range code = 2345-7) values reflec t the clinical guidel inesof the [place] Diabet es Association. Creatinine Lvl 1.00 mg/dl 0.50-1.40 (test code = 2160-0) Blood Urea 15 mg/dl 7-22 Nitrogen (test code = 3094-0) BUN/Creatinine 15 6-25 Ratio (test code = 3097-3) Total Protein 7.9 g/dl 6.4-8.4 (test code = 2885-2) Albumin Lvl (test 3.9 g/dl 3.5-5.0 code = 1751-7) Globulin (test 4.0 g/dl 2.7-4.2 code = 21999-8) A/G Ratio (test 1.0 0.7-1.6 code = 1759-0) Calcium Level 9.1 mg/dl 8.5-10.5 Total (test code = 46792-1) ALT (test code = 15 u/l 0-65 1743-4) AST (test code = 12 u/l 0-37 94162-1) Alk Phos (test 82 u/l 39-136 code = 1783-0) Bili Total (test 0.4 mg/dl 0.2-1.3 code = 1974-) eGFR (test code = 78 The eGFR i s calculated 95527-7) {ML/MIN/1.7} using the CKD-E PI formula. In mos t young, healthyindividu als the eGFR will be >9 0 mL/min/1.73m2. The eGFR declines with a ge. AneGFR of 60-89 may be normal in some population s, particularly th e elderly, forwhom the CKD -EPI formula has not been extensively karolina idated. Use of the eGFR isnot recommended in the following populations:Ind ividuals with unstable c reatinine concentrations, including patient s and those with seri ous co-morbid conditions.Kristi ents with extremes in mus rolan mass or diet.The mark a above are obtained fr om the National Kidney Disease Education Progr am(NKDEP) which butch aliciay recommends that when the eGFR is used in patientswith ex tremes of body mass index for purposes of cole g dosing, the eGFR should be multiplied by t he estimated BMI. [facility]] LIPID [id number] 09:52:01 Test Item Value Reference Range Interpretation Comments Chol (test code = 2093-3) 155 mg/dl <=199 Trig (test code = 2571-8) 55 mg/dl <=149 HDL Cholesterol; Below Low 59 mg/dl >=61 Threshold (test code = 2085-9) CHD Risk; Below Low Threshold (test 2.63 3.90-5.80 code = 33369-5) LDL (test code = 60890-1) 85 mg/dl <=99 VLDL (test code = VLDL) 11 [facility]] T4, [id number] 09:52:01 Test Item Value Reference Range Interpretation Comments T4 Free (test code = 3024-7) 1.18 ng/dl 0.76-1.46 [facility]] TSH, 3RD [id number] 09:52:01 Test Item Value Reference Range Interpretation Comments TSH (test code = 71397-3) 0.715 {uIU/ml} 0.360-3.740 [facility]] HEPATITIS C [id number] 09:52:01 Test Item Value Reference Range Interpretation Comments Hepatitis C Antibody (test code = Negative 28952-0) [facility][] HIV AB, HIV 1/2, EIA, WITH [id number] 09:52:01 Test Item Value Reference Range Interpretation Comments HIV Ag/Ab 4th Gen Negative Negative HIV test r esults should be (test code = considered posi tive only 18642-3) when both the s creening andthe confirma tory tests are positive. A negative confirmatory te st in patientswith a positive screening test does not exclude HIV inf ection. If clincallywarran kortney, an HIV RNA quantitativ e test should be order ed. [facility]] VITAMIN D, 25-HYDROXY, LC/[id number] 09:52:01 Test Item Value Reference Range Interpretation Comments Vitamin D, 25-OH, 14.5 ng/ml 30.0-100.0 Reference range is based Total (test code on recommen dations in the = Vitamin D, EndocrineSociet y Clinical 25-OH, Total) Practice Guide line (J Clin Endocrinol Pyeps3556;96:19 11-1930) [facility]] [id number] 09:52:01 Test Item Value Reference Range Interpretation Comments RPR (test code = 11092-5) Non-Reactive Non-Reactive [facility]. [facility] - [id number] 00:00:00 Test Item Value Reference Range Interpretation Comments GC/Chlamydia REPORT (test code = See Comment 19433-8) [facility][] HIV 4th Gen w/ [id number] 16:08:01 Test Item Value Reference Range Interpretation Comments HIV Ag/Ab 4th Gen (test code = HIV Negative Negative Ag/Ab 4th Gen) [facility]] CBC (INCLUDES DIFF/PLT)2017-02-20 16:08:01 Test Item Value Reference Range Interpretation Comments WBC (test code = WBC) 10.9 {K/CMM} 3.7-10.4 RBC (test code = RBC) 4.14 {M/CMM} 4.20-5.40 Hgb (test code = 64623-0) 12.4 g/dl 12.0-16.0 Hct (test code = 4544-3) 38.1 % 36.0-48.0 MCV (test code = MCV) 92.2 fL 80.0-98.0 MCH (test code = MCH) 30.0 pg 27.0-31.0 MCHC (test code = MCHC) 32.6 g/dl 32.0-36.0 RDW (test code = RDW) 16.2 % 11.5-14.5 Platelet; Below Low Threshold 117 {K/CMM} 133-450 (test code = 777-3) Mean Platelet Volume (test code 11.7 fL 7.4-10.4 = Mean Platelet Volume) [facility]] [id number] 16:08:01 Test Item Value Reference Range Interpretation Comments Segmented Neutrophils; Above High 75.6 % 45.0-75.0 Threshold (test code = 64751-4) Monocytes #; Above High Threshold 0.9 {K/CMM} 0.0-0.8 (test code = 06886-4) Lymphocytes (test code = 15.1 % 20.0-40.0 Lymphocytes) Eosinophils # (test code = 0.1 {K/CMM} 0.0-0.5 27913-7) Basophils (test code = 37357-0) 0.2 % 0.0-1.0 Segs-Bands #; Above High 8.2 {K/CMM} 1.5-8.1 Threshold (test code = 71087-2) Lymphocytes # (test code = 1.6 {K/CMM} 1.0-5.5 38844-3) [facility]] [id number] 16:08:01 Test Item Value Reference Range Interpretation Comments RPR (test code = 00038-6) Non Reactive Non Reactive [facility][Q] STREPTOCOCCUS, GROUP B CULTURE (Genital Strep Screen)2017-02-20 16:08:01 Test Item Value Reference Range Interpretation Comments FINAL REPORT (test No Beta-Hemolytic code = FINAL REPORT) Streptococci Isolated [facility]
[2021-05-14 23:27] LABS: Urine Blood Negative (Negative); Urine Glucose Negative (Negative); Urine Protein Negative (Negative); Urine Specific Gravity >=1.030 (1.005-1.030)
[2021-05-15 00:12] LABS: Urine Bacteria <20 /HPF (<20); Urine RBC <5 /HPF (NONE SEEN)
--- NOTE | 2021-05-15 00:19 | EDPHYS ---
Physician Documentation [facility] Name: Alecia Rhodes Age: 30 yrs Sex: Female : 1990 Arrival Date: 05/14/2021 Time: 22:44 Bed 5 Private MD: ED Physician Gerald Torres HPI: 05/14 23:28 This 30 yrs old Black Female presents to ER via Ambulatory with complaints of Urinary rn Problem. 23:28 The patient presents with urinary symptoms, dysuria, frequency. rn 23:28 Onset: The symptoms/episode began/occurred 3 day(s) ago. Modifying factors: The rn symptoms are alleviated by nothing, the symptoms are aggravated by urinating. Associated signs and symptoms: Pertinent positives: cramping, Pertinent negatives: fever, hematuria, vaginal bleeding, vaginal discharge, vomiting. Severity of symptoms: At their worst the symptoms were mild, in the emergency department the symptoms are unchanged. The patient has experienced a previous episode. The patient has been recently seen by a physician:. Pt reports concerned she has a UTI. Reports is 14 weeks , no complications, just found out today she is having a girl. Reports 2-3 days of dysuria and increased frequency. No fever. No vaginal bleeding/or discharge. No back pain. No vomiting/diarrhea. . 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 - Social history:: Smoking status: Patient denies any tobacco usage or history of. - Family history:: not pertinent. - Hospitalizations: : No recent hospitalization is reported. ROS: 23:28 Constitutional: Negative for fever, chills, and weight loss, Eyes: Negative for injury, rn pain, redness, and discharge, Neck: Negative for injury, pain, and swelling, Cardiovascular: Negative for chest pain, palpitations, and edema, Respiratory: Negative for shortness of breath, cough, wheezing, and pleuritic chest pain, Abdomen/GI: Negative for vomiting, diarrhea, and constipation, Back: Negative for injury and pain, : + dysuria and increased frequency MS/Extremity: Negative for injury and deformity, Skin: Negative for injury, rash, and discoloration, Neuro: Negative for headache, weakness, numbness, tingling, and seizure. Exam: 23:28 Constitutional: This is a well developed, well nourished patient who is awake, alert, rn and in no acute distress. Head/Face: Normocephalic, atraumatic. Eyes: Periorbital areas with no swelling, redness, or edema. Cardiovascular: Regular rate and rhythm. No pulse deficits. Respiratory: Speaking full sentences, unlabored. No increased work of breathing, no retractions or nasal flaring. Abdomen/GI: soft, non-tender, no rebound Skin: Warm, dry MS/ Extremity: Pulses equal, no cyanosis. Neuro: Awake and alert, GCS 15 Vital Signs: 22:58 BP 104 / 65; Pulse 59; Resp 16 S; Temp 98.6(O); Pulse Ox 100% on R/A; Weight 79.38 kg as6 (R); Height 5 ft. 6 in. (167.64 cm) (R); Pain 4/10; 23:27 BP 121 / 67; Pulse 58; Resp 16; Pulse Ox 100% ; st1 22:58 Body Mass Index 28.25 (79.38 kg, 167.64 cm) as6 MDM: 23:05 Patient medically screened. rn 02 00:16 Differential diagnosis: urinary tract infection, urethritis. Data reviewed: vital rn signs, nurses notes, lab test result(s), and as a result, I will discharge patient. Counseling: I had a detailed discussion with the patient and/or guardian regarding: the historical points, exam findings, and any diagnostic results supporting the discharge/admit diagnosis, lab results, the need for outpatient follow up, to return to the emergency department if symptoms worsen or persist or if there are any questions or concerns that arise at home. Response to treatment: There is no appreciated change of the patient's symptoms at this time, and as a result, I will discharge patient. Special discussion: I discussed with the patient/guardian in detail that at this point there is no indication for admission to the hospital. It is understood, however, that if the symptoms persist or worsen the patient needs to return immediately for re-evaluation. Based on the history and exam findings, there is no indication for further emergent testing or inpatient evaluation. I discussed with the patient/guardian the need to see the OB Gyne specialist for further evaluation of the symptoms. ED course: Neg urine dip and normal micro. Afebrile, denies vaginal bleeding/discharge. Denies vomiting/diarrhea/constipation. . 05/14 23:08 Order name: Urine Culture rn 05/14 23:08 Order name: Urine Microscopic Only; Complete Time: 00:13 rn 05/14 23:08 Order name: Urine Dipstick-Ancillary (obtain specimen) rn 05/14 23:26 Order name: Urine Dipstick-Ancillary; Complete Time: 00:08 EDMS Administered Medications: No medications were administered Disposition Summary: 05/15/21 00:18 Discharge Ordered Location: Home rn Problem: new rn Symptoms: are unchanged rn Condition: Stable rn Diagnosis - Dysuria rn - Person with feared health complaint in whom no diagnosis is made rn Followup: rn - With: Private Physician - When: As needed - Reason: Recheck today's complaints, Re-evaluation by your physician Discharge Instructions: - Discharge Summary Sheet rn - Dysuria rn Forms: - Medication Reconciliation Form rn - Thank You Letter rn - 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
--- NOTE | 2021-05-15 00:19 | ER ---
Nurse's Notes [facility] Name: Alecia Rhodes Age: 30 yrs Sex: Female : 1990 Arrival Date: 05/14/2021 Time: 22:44 Bed 5 Private MD: Diagnosis: Dysuria;Person with feared health complaint in whom no diagnosis is made Presentation: 05/14 22:58 Chief complaint: Patient states: "I am 14 weeks and I think I have a UTI, I am as6 having cramping and having to pee all the time. The only ever time I had a UTI was when I was ". Coronavirus screen: At this time, the client does not indicate any symptoms associated with coronavirus-19. Ebola Screen: No symptoms or risks identified at this time. Initial Sepsis Screen: Does the patient meet any 2 criteria? No. Patient's initial sepsis screen is negative. Does the patient have a suspected source of infection? No. Patient's initial sepsis screen is negative. Risk Assessment: Do you want to hurt yourself or someone else? Patient reports no desire to harm self or others. Onset of symptoms was May 14, 2021. 22:58 Method Of Arrival: Ambulatory as6 22:58 Acuity: RICHARD 4 as6 Triage Assessment: 23:02 General: Appears in no apparent distress. Behavior is calm, cooperative. Pain: as6 Complains of pain in abdomen. : Reports urgency, urinary frequency. 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 - Social history:: Smoking status: Patient denies any tobacco usage or history of. - Family history:: not pertinent. - Hospitalizations: : No recent hospitalization is reported. Screenin:19 Abuse screen: Denies threats or abuse. Nutritional screening: No deficits noted. st1 Tuberculosis screening: No symptoms or risk factors identified. Fall Risk None identified. No fall in past 12 months (0 pts). No secondary diagnosis (0 pts). No IV (0 pts). Ambulatory Aid- None/Bed Rest/Nurse Assist (0 pts). Gait- Normal/Bed Rest/Wheelchair (0 pts) Mental Status- Oriented to own ability (0 pts). Total Craig Fall Scale indicates No Risk (0-24 pts). Assessment: 23:20 Reassessment: Patient appears in no apparent distress at this time. No changes from st1 previously documented assessment. Vital Signs: 22:58 BP 104 / 65; Pulse 59; Resp 16 S; Temp 98.6(O); Pulse Ox 100% on R/A; Weight 79.38 kg as6 (R); Height 5 ft. 6 in. (167.64 cm) (R); Pain 4/10; 23:27 BP 121 / 67; Pulse 58; Resp 16; Pulse Ox 100% ; st1 22:58 Body Mass Index 28.25 (79.38 kg, 167.64 cm) as6 ED Course: 22:44 Patient arrived in ED. kc5 23:01 Triage completed. as6 23:02 Arm band placed on left wrist. as6 23:05 Gerald Torres MD is Attending Physician. rn 23:19 Patient has correct armband on for positive identification. Bed in low position. Call st1 light in reach. Side rails up X 1. Pulse ox on. NIBP on. Verbal reassurance given. 23:28 Urine collected: clean catch specimen, clear, Amount Voided: 40mL. st1 02/09 00:22 No provider procedures requiring assistance completed. st1 00:24 Patient did not have IV access during this emergency room visit. st1 Administered Medications: No medications were administered Outcome: 00:18 Discharge ordered by . rn 00:24 Discharged to home ambulatory. st1 00:24 Condition: good 00:24 Discharge instructions given to patient, Instructed on discharge instructions, follow up and referral plans. Demonstrated understanding of instructions, follow-up care. 00:24 Patient left the ED. st1 Signatures: Gerald Torres MD MD rn Slawson, Ashby, RN RN as6 Veronica Magana kc5 Beverly Evans RN RN st1
[2021-05-15 08:10] VITALS: TEMP 98.6; O2SAT 100
[2021-05-15 08:12] VITALS: BP 121/67
== END 2021-05-15 00:24 | disposition home or self-care (01) ==
LOC: ER 22:41
DX: Z71.1 Person with feared health complaint in whom no diagnosis is made (principal); Z88.6 Allergy status to analgesic agent
CPT/HCPCS: 81003; 81015; 87086; 87088; 99283

== ENCOUNTER 2021-06-12 15:38 | Emergency (ER) | payer OTHER ==
--- OUTSIDE RECORDS SUMMARY | 2021-06-12 15:42 | XMS REPORT | Continuity of Care Document ---
:1990 Author Organization [facility] t Address [address] [place] [address] Care Team Providers Name Role Phone Unknown Primary Care Physician Unavailable PALMER Attending Clinician Unavailable Georgi Magana DO Attending Clinician PALMER Attending Clinician Unavailable Radha Tello Attending Clinician Payers Payer Name Policy Type Policy Number Effective Date Expiration Date S art [employer] [id number] 2016 00:00:00 Problems Condition Condition Condition Status Onset Resolution Last Treating Co mments Source Name Details Category Date Date Treatment Clinician Date Encounter Encounter Disease Active [facility] for for 2-15 Health supervisio supervisio 00:00: n of n of 00 normal normal , , antepartum antepartum History of History of Disease Active 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 00:00: 00 History of History of Problem Active U nivers herpes herpes [place] of genital[place] genitalis [place] [facility] Supervis[place] Supervisio Problem Active U nivers n of n of ity of normal normal [place] [facility] Encounter Encounter Problem Active [...] Active Uni vers menses menses ity of [place] [facility] Problem Active Uni vers test test ity of negative negative [place] [facility] Allergies, Adverse Reactions, Alerts Allergy Allergy Status Severity Reaction(s) Onset Inactive Treating Comm ents Source Name Type Date Date Clinician Aspirin Allergy Active Swelling Due to [place] to 07-15 ulcerativ Health substanc 00:00: e colitis e 00 aspirin Drug Active [facility] aspirin Drug Active [facility] aspirin Drug Active [facility] aspirin Drug Active [facility] aspirin Drug Active [facility] aspirin Drug Active [facility] aspirin Drug Active [facility] aspirin Drug Active [facility] aspirin Drug Active [facility] aspirin Drug Active [facility] aspirin Drug Active [facility] aspirin Allergy Active [facility] to drug ity of (finding [place] ) Physici ans Social History Social Habit Start Date Stop Date Quantity Comments Source ASSERTION 2021-02-22 [place] [facility] 00:00:00 [facility] Alcohol Std Drinks History [facility] Alcohol Comment Exposure to Not sure [facility] SARS-CoV-2 (event) Alcohol intake 2021-04-26 2021-04-26 Ex-drinker [facility] 00:00:00 00:00:00 (finding) History [facility] 2021-04-26 2021-04-26 1 [facility] Alcohol Frequency 00:00:00 00:00:00 History [facility] 2021-04-26 2021-04-26 1 [facility] Alcohol Binge 00:00:00 00:00:00 Tobacco use and 2021-03-12 2021-03-12 Smokeless tobacco [facility] exposure 00:00:00 00:00:00 non-user Sex Assigned At [birth year] [facility] 00:00:00 00:00:00 Smoking Status Start Date Stop Date Source Never smoked tobacco [facility] Medications Ordered Filled Start Stop Current Ordering Indication Dosage Frequency Signature Comments Components Source Medication Medication Date Date Medication? Clinician (SIG) Name Name metoclopram Yes 10mg Q.25D Take 10 mg [facility] vitaliy 2-15 by mouth 4 Health (Reglan) 10 11:31: (four) MG tablet 04 times a day. metoclopram Yes 10mg Q.25D Take 10 mg [facility] vitaliy 1-20 by mouth 4 Health (Reglan) 10 13:43: (four) MG tablet 10 times a day. ondansetron 2021- Yes [id number] 4mg Take 1 UT ODT 1-20 02-04 tablet (4 Health (Zofran-ODT 00:00: 05:59 mg total) ) 4 MG 00 :00 by mouth disintegrat every 8 ing tablet (eight) hours if needed for nausea or vomiting for up to 14 days. aspirin 2020-04- Yes [id number] 81mg QD Chew 1 UT MG chewable 2-23 12-24 tablet (81 H ealth tablet 00:00: 05:59 mg total) 00 :00 1 (one) time each day. aspirin 2020-04- Yes [id number] 81mg QD Chew 1 UT MG chewable 2-23 12-24 tablet (81 H ealth tablet 00:00: 05:59 mg total) 00 :00 1 (one) time each day. Pren-Fe 2020-1 Yes [id number] One tab UT Poly-Methfo 2-07 daily Health l-FA-DHA 00:00: (Vitafol 00 Ultra) 29-0.6-0.4- 200 MG capsule Prenat2020-04 Yes [id number] One tab UT Poly-Methfo 2-07 daily Health l-FA-DHA 00:00: (Vitafol 00 Ultra) 29-0.6-0.4- 200 MG capsule Doxylamine- 2020-04- No [id number] 1{tbl} QD Take 1-2 UT Pyridoxine 2-07 03-08 tablets by He alth (Diclegis) 00:00: 05:59 mouth at 10-10 MG 00 :00 night if tablet needed delayed-rel (vomiting) ease . Can increase to 4x/day Doxylamine- 2020-04- No [id number] 1{tbl} QD Take 1-2 UT Pyridoxine 2-07 03-08 tablets by He alth (Diclegis) 00:00: 05:59 mouth at 10-10 MG 00 :00 night if tablet needed delayed-rel (vomiting) ease . Can increase to 4x/day meclizine Yes TAKE 1 UT (Antivert) 7-21 TABLET BY [facility] 25 MG 00:00: MOUTH tablet 00 THREE TIMES A DAY NEEDED FOR DIZZINESS meclizine Yes TAKE 1 UT (Antivert) 7-21 TABLET BY [facility] th 25 MG 00:00: MOUTH tablet 00 THREE TIMES A DAY NEEDED FOR DIZZINESS valACYclovi 2019-04 Yes 500mg 500 mg. UT r (Valtrex) 1-06 Health 500 MG 00:00: tablet 00 valACYclovi 2019-04 Yes 500mg 500 mg. UT [...] 1.25 abigail) 1.25 00:00: WEEKLY [place] MG (84838 MG ([id number] 00 Physi ci UT) Oral UT) Oral ans Capsule Capsule Immunizations Ordered Immunization Filled Immunization Date Status Commen ts Source Name Name Gricelda Quadrivalent 2017-01-22 Completed Univ ersity of 0.5 ML Intramuscular 00:00:00 [facility] Suspension Prefilled Syringe Tdap (Adacel) 2017-01-08 Completed [facility] 00:00:00 Marek Physicia ns Vital Signs Vital Name Observation Time Observation Value Comments Source Systolic blood 2021-05-21 103 mm[Hg] [facility] pressure 17:30:00 Diastolic blood 2021-05-21 68 mm[Hg] [facility] pressure 17:30:00 Heart rate 2021-05-21 81 /min [facility] 17:30:00 Body temperature 2021-05-21 36.33 Catherine [facility] 17:30:00 Body weight 2021-05-21 80.74 kg [facility] 17:30:00 BMI 2021-05-21 28.73 kg/m2 [facility] 17:30:00 Systolic blood 2021-04-25 119 mm[Hg] [facility] pressure 19:43:00 Diastolic blood 2021-04-25 70 mm[Hg] [facility] pressure 19:43:00 Body temperature 2021-04-25 36.11 Catherine [facility] 19:43:00 Body weight 2021-04-25 78.382 kg [facility] 19:43:00 BMI 2021-04-25 27.89 kg/m2 [facility] 19:43:00 Height/Length 2021-04-23 167.6 cm Measured [...] Systolic blood 2020-04-11 145 mm[Hg] Location: [place]; [facility] 15:02:00 Position: [place] [facility] Diastolic blood 2020-04-11 82 mm[Hg] Location: [place]; [facility] pressure 15:02:00 Position: [place] [facility] S[facility] Body height 2020-04-11 66 [in_us] University 15:02:00 [place] [facility] Weight 2020-04-11 180.375 [lb_av] University o f 15:02:00 [place] [facility] Body mass index 2020-04-11 29.11 kg/m2 University o f (BMI) [Ratio] 15:02:00 [place] [facility] Body temperature 2020-04-11 97.5 [degF] Method: [facility] 15:02:00 Temporal [place] [facility] Heart Rate 2020-04-11 88 /min [facility] 15:02:00 [place] [facility] Systolic blood 2020-02-10 103 mm[Hg] Location: [place]; [facility] 09:17:00 Position: [place] [facility] Sitting Diastolic blood 2020-02-10 71 mm[Hg] Location: [place] [facility] 09:17:00 Position: [place] [facility] S[facility] Body height 2020-02-10 66 [in_us] [facility] 09:17:00 [place] [facility] Weight 2020-02-10 175 [lb_av] [facility] 09:17:00 [place] [facility] Body mass index 2020-02-10 28.25 kg/m2 University o f (BMI) [Ratio] 09:17:00 [place] [facility] Heart Rate 2020-02-10 88 /min [facility] 09:17:00 [place] [facility] Body temperature 2020-02-10 97.5 [degF] Method: [facility] 09:17:00 Temporal [place] [facility] Systolic blood 2019-11-18 123 mm[Hg] Location: [place]; [place] of pressure 09:50:00 Position: [place] [facility] Sitting Diastolic blood 2019-11-18 73 mm[Hg] Location: [place]; [place] of pressure 09:50:00 Position: [place] [facility] Sitting Body height 2019-11-18 66 [in_us] [facility] 09:50:00 [place] [facility] Weight 2019-11-18 171 [lb_av] [facility] 09:50:00 [place] [facility] Body mass index 2019-11-18 27.6 kg/m2 University o f (BMI) [Ratio] 09:50:00 [place] [facility] Body temperature 2019-11-18 98.2 [degF] [facility] 09:50:00 [place] [facility] Heart Rate 2019-11-18 67 /min [facility] 09:50:00 [place] [facility] BP Systolic 2018-08-05 116 mm[Hg] Location: [facility]; [facility] 09:10:00 Position: [place] [facility] Sitting BP Diastolic 2018-08-05 71 mm[Hg] Location: [place]; [facility] 09:10:00 Position: [place] [facility] Sitting Height 2018-08-05 66 [in_us] University 09:10:00 [place] [facility] Weight 2018-08-05 160 [lb_av] [facility] 09:10:00 [place] [facility] Body Mass Index 2018-08-05 25.82 kg/m2 University o f Calculated 09:10:00 [place] [facility] Heart Rate 2018-08-05 76 /min [facility] 09:10:00 [place] [facility] BP Systolic 2017-08-04 132 mm[Hg] [facility] 15:15:[facility] Position: [place] [facility] S[facility] BP Diastolic 2017-08-04 75 mm[Hg] Location: [facility] 15:15:00 Position: [place] [facility] Sitting Height 2017-08-04 66 [in_us] University of 15:15:00 [place] [facility] Weight 2017-08-04 166 [lb_av] [facility] 15:15:00 [place] [facility] Body Mass Index 2017-08-04 26.79 kg/m2 University o f Calculated 15:15:00 [place] [facility] Heart Rate 2017-08-04 82 /min University of 15:15:00 [place] [facility] BP Systolic 2017-05-01 135 mm[Hg] Location: [facility] 10:08:00 Position: [place] [facility] Sitting BP Diastolic 2017-05-01 60 mm[Hg] Location: [facility] 10:08:00 Position: [place] [facility] Sitting Height 2017-05-01 66 [in_us] [facility] 10:08:00 [place] [facility] Weight 2017-05-01 164 [lb_av] [facility] 10:08:00 [place] [facility] Body Mass Index 2017-05-01 26.47 kg/m2 University o f Calculated 10:08:00 [place] [facility] Heart Rate 2017-05-01 84 /min University 10:08:00 [place] [facility] BP Systolic 2017-04-02 123 mm[Hg] Location: [facility]; [facility] 13:16:00 Position: [place] [facility] Sitting BP Diastolic 2017-04-02 76 mm[Hg] Location: [place]; [facility] 13:16:00 Position: [place] [facility] S[facility] Height 2017-04-02 66 [in_us] [facility] 13:16:00 [place] [facility] Weight 2017-04-02 168 [lb_av] [facility] 13:16:00 [place] [facility] Body Mass Index 2017-04-02 27.12 kg/m2 University o f Calculated 13:16:00 [place] [facility] Heart Rate 2017-04-02 76 /min [place] of 13:16:00 [place] [facility] BP Systolic 2017-03-12 126 mm[Hg] [facility] Position: [place] [facility] S[facility] BP Diastolic 2017-03-12 74 mm[Hg] [facility] Position: [place] [facility] S[facility] Height 2017-03-12 66 [in_us] [facility] 09:34:00 [place] [facility] Weight 2017-03-12 189 [lb_av] [facility] 09:34:00 [place] [facility] Body Mass Index 2017-03-12 30.51 kg/m2 University o f Calculated 09:34:00 [place] [facility] Heart Rate 2017-03-12 90 /min [facility] 09:34:00 [place] [facility] BP Systolic 2017-03-05 118 mm[Hg] [facility]:12[facility] Position: [place] [facility] S[facility] BP Diastolic 2017-03-05 70 mm[Hg] Location: [facility] 09:12:00 Position: [place] [facility] Sitting Height 2017-03-05 66 [in_us] [facility] 09:12:00 [place] [facility] Weight 2017-03-05 189 [lb_av] [facility] 09:12:00 [place] [facility] Body Mass Index 2017-03-05 30.51 kg/m2 University o f Calculated 09:12:00 [place] [facility] BP Systolic 2017-02-25 125 mm[Hg] [facility] Position: [place] [facility] S[facility] BP Diastolic 2017-02-25 74 mm[Hg] Location: [place]; [facility] 09:01:00 Position: [place] [facility] Sitting Height 2017-02-25 66 [in_us] [facility] of 09:01:00 [place] [facility] Weight 2017-02-25 186 [lb_av] [facility] of 09:01:00 [place] [facility] Body Mass Index 2017-02-25 30.02 kg/m2 University o f Calculated 09:01:00 [place] [facility] Heart Rate 2017-02-25 89 /min University of 09:01:00 [place] [facility] BP Systolic 2017-02-20 114 mm[Hg] Location: [place]; [facility] 15:37:00 Position: [place] [facility] Sitting BP Diastolic 2017-02-20 70 mm[Hg] Location: [place]; [facility] 15:37:00 Position: [place] [facility] S[facility] Height 2017-02-20 66 [in_us] [facility] 15:37:00 [place] [facility] Weight 2017-02-20 187 [lb_av] [facility] of 15:37:00 [place] [facility] Body Mass Index 2017-02-20 30.18 kg/m2 University o f Calculated 15:37:00 [place] [facility] Heart Rate 2017-02-20 82 /min University of 15:37:00 [place] [facility] BP Systolic 2017-02-19 106 mm[Hg] Location: [place]; [facility] 10:39:00 Position: [place] [facility] Sitting BP Diastolic 2017-02-19 73 mm[Hg] Location: [place]; [place] of 10:39:00 Position: [place] [facility] Height 2017-02-19 66 [in_us] University 10:39:00 [place] [facility] Heart Rate 2017-02-19 93 /min University of 10:39:00 [place] [facility] Weight 2017-02-19 188 [lb_av] [facility] of 10:39:00 [place] [facility] Body Mass Index 2017-02-19 30.34 kg/m2 University o f Calculated 10:39:00 [place] [facility] BP Systolic 2017-02-19 106 mm[Hg] Location: [place]; [facility] 10:30:00 Position: [place] [facility] S[facility] BP Diastolic 2017-02-19 73 mm[Hg] Location: [place]; [facility] 10:30:00 Position: [place] [facility] Height 2017-02-19 66 [in_us] University 10:30:00 [place] [facility] Heart Rate 2017-02-19 93 /min [facility] 10:30:00 [place] [facility] BP Systolic 2017-02-05 102 mm[Hg] Location: [facility] 10:15:00 Position: [place] [facility] Sitting BP Diastolic 2017-02-05 60 mm[Hg] Location: [facility]; [facility] 10:15:00 Position: [place] [facility] Height 2017-02-05 66 [in_us] [facility] 10:15:00 [place] [facility] Weight 2017-02-05 186 [lb_av] [facility] 10:15:00 [place] [facility] Body Mass Index 2017-02-05 30.02 kg/m2 [place] [facility] Calculated 10:15:00 [place] [facility] BP Systolic 2017-01-22 106 mm[Hg] Location: [facility] 09:47:00 Position: [place] [facility] Sitting BP Diastolic 2017-01-22 61 mm[Hg] Location: [facility] 09:47:00 Position: [place] [facility] Sitting Height 2017-01-22 66 [in_us] [facility] 09:47:00 [place] [facility] Heart Rate 2017-01-22 102 /min [facility] 09:47:00 [place] [facility] Weight 2017-01-22 185 [lb_av] [facility] 09:47:00 [place] [facility] Body Mass Index 2017-01-22 29.86 kg/m2 [facility] Calculated 09:47:00 [place] [facility] Procedures Procedure Date / Time Performing Clinician Source Performed POCT URINALYSIS 2021-05-21 18:08:00 [facility] [QL] TSH, 3RD 2020-04-11 00:00:00 [facility] GENERATION Physicians [QL] T4, FREE 2020-04-11 00:00:00 [facility] Physicians [QL] VITAMIN D, 2020-04-11 00:00:00 [facility] 25-HYDROXY, LC/MS/MS Physicians [QL] VITAMIN B12 2020-04-11 00:00:00 [facility] Physicians [QL] HCG, TOTAL, QN 2020-03-27 00:00:00 [facility] Physicians [Q] CHLAMYDIA/N. 2020-02-10 00:00:00 [facility] GONORRHOEAE RNA, TMA Physicians [QL] BV/ VAGINITIS 2020-02-10 00:00:00 [facility] PANEL DNA PROBE AFFIRM Physician s [Q] HEPATITIS B SURFACE 2020-02-10 00:00:00 [facility] ANTIGEN W/REFL CONFIRM Physician s [Q] HIV-1/2 Antigen and 2020-02-10 00:00:00 [facility] Antibodies, Fourth Physicians Generation, with Reflexes [QL] HEPATITIS C 2020-02-10 00:00:00 [facility] ANTIBODY Physicians [QL] RPR (DX) W/REFL 2020-02-10 00:00:00 [facility] TITER AND CONFIRMATORY Physician s TESTING [L] Comp. Metabolic 2019-11-18 00:00:00 [facility] Panel (13) Physicians [QL] CBC (INCLUDES 2019-11-18 00:00:00 [facility] DIFF/PLT) Physicians [QL] HEMOGLOBIN A1c 2019-11-18 00:00:00 [facility] Physicians [QL] LIPID PANEL 2019-11-18 00:00:00 [facility] Physicians [QL] T4, FREE 2019-11-18 00:00:00 [place] [facility] Physicians [QL] TSH, 3RD 2019-11-18 00:00:00 [place] [facility] GENERATION Physicians [QL] CMP W/EGFR 2019-11-18 00:00:00 [place] [facility] Physicians [Q] THINPREP TIS PAP 2019-11-18 00:00:00 [facility] REFLEX HPV mRNA E6/E7 Physicians [QL] BV/ VAGINITIS 2019-11-18 00:00:00 [facility] PANEL DNA PROBE AFFIRM Physician s [L] Vitamin D, 2018-08-05 00:00:00 [place] [facility] 25-Hydroxy, Total - Physicians [employer]oterix [QLH] CBC (INCLUDES 2018-08-05 00:00:00 [facility] DIFF/PLT) Physicians [QLH] CMP W/EGFR 2018-08-05 00:00:00 [facility] Physicians [QLH] HEMOGLOBIN A1c 2018-08-05 00:00:00 [facility] Physicians [QLH] LIPID PANEL 2018-08-05 00:00:00 [facility] Physicians [QLH] T4, FREE 2018-08-05 00:00:00 [place] [facility] Physicians [QLH] TSH, 3RD 2018-08-05 00:00:00 [place] [facility] [place] GENERATION Physicians [Q] HIV-1/2 Antigen and 2018-08-05 00:00:00 [facility] Antibodies, Fourth Physicians Generation, with Reflexes [QH] HEPATITIS B 2018-08-05 00:00:00 [facility] SURFACE ANTIGEN W/REFL Physician s CONFIRM [QH] HIV AB, HIV 1/2, 2018-08-05 00:00:00 [facility] EIA, WITH REFLEXES Physicians [QLH] HEPATITIS C 2018-08-05 00:00:00 [facility] ANTIBODY Physicians [QLH] RPR 2018-08-05 00:00:00 [place] [facility] Physicians . [facility] - GC/Chlamydia 2018-08-05 00:00:00 [facility] Physicians . [facility] - Affirm VPIII 2018-08-05 00:00:00 [facility] (BV Panel) Physicians [Q] HIV-1/2 Antigen and 2017-02-20 00:00:00 [facility] Antibodies, Fourth Physicians Generation, with Reflexes [QH] STREPTOCOCCUS, 2017-02-20 00:00:00 [facility] GROUP B CULTURE Physicians (Genital Strep Screen) [QLH] CBC (INCLUDES 2017-02-20 00:00:00 [facility] DIFF/PLT) Physicians [QLH] RPR 2017-02-20 00:00:00 [place] [facility] Physicians Plan of Care Planned Activity Planned Date Details Comments Source Diagnostic Test 2020-04-11 [QL] TSH, 3RD [facility] Pending 00:00:00 GENERATION [code = Physician s [QL] TSH, 3RD GENERATION] Diagnostic Test 2020-04-11 [QL] T4, FREE [code Unive [facility] Pending 00:00:00 = [QL] T4, FREE] Physicians Diagnostic Test 2020-04-11 [QL] VITAMIN D, [facility] Pending 00:00:00 25-HYDROXY, LC/MS/MS Physici ans [code = [QL] VITAMIN D, 25-HYDROXY, LC/MS/MS] Diagnostic Test 2020-04-11 [QL] VITAMIN B12 [facility] Pending 00:00:00 [code = [QL] VITAMIN Physici ans B12] Encounters Start End Encounter Admission Attending Care Care Encounter Source Date/Time Date/Time Type Type Clinicians Facility Department ID 2021-05-22 Outpatient [facility] [id number] [place] 15:45:59 Health 2021-05-21 Outpatient PALMER, [facility] [id number] [place] 12:05:54 [facility] 2021-05-08 Outpatient [facility] [id number] [place] 09:45:24 Health 2021-05-21 2021-05-21 Routine Palmer [facility] [id number] [place] 11:10:00 12:05:58 [id number] [address] [id number] AND 2 WOMENS 2021-04-25 2021-04-25 Initial Palmer [facility] [id number] [place] 13:40:00 14:15:12 Azeema SUGAR [id number] H [facility] MED [id number] [address] 2 [id number] AND 2 WOMENS 2020-06-26 2020-06-26 Patient [facility] [id number] 00:00:00 00:00:00 Outreach [facility] [id number] [facility] [id number] PAVILLION [id number] 2020-04-11 2020-04-11 Appointmen PALMER [facility] Women's [id number] Univers 14:40:00 14:40:00 t; [facility] Physici ans 2020-02-10 2020-02-10 Appointmen PALMER [facility] Womens [id number] Univers 09:10:00 09:10:00 t; JOHAN [facility]ABORTY [facility] Physici ans 2019-11-18 2019-11-18 Appointmen PALMER [facility] [id number] Univers 09:50:00 09:50:00 t; JOHAN CHAKRABORTY [facility] Jennifer PRADO M.D. Physici ans 2019-05-11 2019-05-11 Telephone Christopheron license of [facility], [facility] [id number] 00:00:00 00:00:00 Janett Garcia PATIENT CARE REPRESENTATIVE [id number] [facility] [id number] MATERNAL [id number] & CHILD [address] [place] [address] 2019-04-11 2019-04-11 Emergency [facility] MIGUEL ANGEL [id number] 20:30:00 20:30:00 [facility] 2018-08-05 2018-08-05 Appointshaquille CHAKRABORTY [facility] Women's [id number] Univers 09:20:00 09:20:00 t; JOHAN CHAKRABORTY Center ity of AZEEMA, M.D. [facility] Jennifer Physici ans 2017-08-04 2017-08-04 Appointshaquille CHAKRABORTY [facility] Women's [id number] Univers 15:00:00 15:00:00 t; JOHAN CHAKRABORTY Center ity of AZEEMA, M.D. [facility] Jennifer Physici ans 2017-05-01 2017-05-01 Appointshaquille CHAKRABORTY [facility] Women's [id number] Univers 10:10:00 10:10:00 t; JOHAN CHAKRABORTY Center ity of AZEEMA, M.D. [facility] Jennifer Physici ans 2017-04-02 2017-04-02 Appointshaquille CHAKRABORTY [facility] Women's [id number] Univers 13:00:00 13:00:00 t; JOHAN CHAKRABORTY Center ity of AZEEMA, M.D. [facility] Jennifer Physici ans 2017-03-12 2017-03-12 Appointshaquille CHAKRABORTY [facility] Women's [id number] Univers 09:20:00 09:20:00 t; JOHAN CHAKRABORTY Center ity of AZEEMA, M.D. [facility] Jennifer Physici ans 2017-03-05 2017-03-05 Appointshaquille CHAKRABORTY [facility] Women's [id number] Univers 09:20:00 09:20:00 t; JOHAN CHAKRABORTY Center ity of AZEEMA, M.D. [facility].D. Physici ans 2017-02-25 2017-02-25 Appointmen PALMER, ADAMARIS Women's [id number] Univers 09:00:00 09:00:00 t; KEVINVONDA TAMARSTONEYCORRIE, [facility] Sarah PRADO. [facility].D. Physici ans 2017-02-20 2017-02-20 Appointmen PALMER, ADAMARIS Women's [id number] Univers 15:00:00 15:00:00 t; PALMER TAMARALEX, [facility] Sarah PRADO. [facility].D. Physici ans 2017-02-19 2017-02-19 Appointmen ADAMARIS CHAKRABORTY Women's [id number] Univers 10:20:00 10:20:00 t; JOHAN CHAKRABORTY, [facility] Jennifer PRADO [facility].Lj. Physici ans 2017-02-05 2017-02-05 Appointshaquille CHAKRABORTY, ADAMARIS [facility] [id number] Univers 10:20:00 10:20:00 t; JOHAN CHAKRABORTY, [facility] Jennifer PRADO [facility].Lj. Physici ans 2017-01-22 2017-01-22 Appointshaquille CHAKRABORTY, [facility] UTP [id number] Univers 09:40:00 09:40:00 t; JOHAN CHAKRABORTY, [facility] Jennifer PRADO [facility].Janice Physici ans 2017-01-08 2017-01-08 Appointmen PALMER, ADAMARIS UTP [id number] Univers 09:20:00 09:20:00 t; JOHAN CHAKRABORTY, [facility] Jennifer PRADO [facility].D. Physici ans 2016-12-25 2016-12-25 Appointmen PALMER, [facility] UTP [id number] Univers 09:30:00 09:30:00 t; JOHAN CHAKRABORTY, [place] [facility] Jennifer PRADO [facility].Janice Physici ans 2016-12-11 2016-12-11 Appointmen PALMER, ADAMARIS UTP [id number] Univers 09:30:00 09:30:00 t; JOHAN CHAKRABORTY, [facility] 2016-11-28 2016-11-28 Appointmen PALMER, UTP UTP [id number] Univers 09:30:00 09:30:00 t; JOHAN CHAKRABORTY [facility] [place], [facility]. [facility] 2016-11-14 2016-11-14 Appointmen PALMER, UTP UTP [id number] [facility] 09:30:00 09:30:00 t; JOHAN CHAKRABORTY [employer] M.D. [facility] 2016-10-20 2016-10-20 Appointmen PALMER, UTP UTP [id number] [facility] 12:30:00 12:30:00 t; JOHAN CHAKRABORTY ity of [place], M.D. [facility] 2016-10-17 2016-10-17 Appointmen PALMER, UTP UTP [id number] [facility] 13:00:00 13:00:00 t; JOHAN CHAKRABORTY ity of [place], M.D. [facility] 2016-10-02 2016-10-02 Appointmen PALMER, UTP UTP [id number] [facility] 14:00:00 14:00:00 t; JOHAN CHAKRABORTY ity of [place], M.D. [facility] 2016-09-22 2016-09-22 Appointmen PALMER, UTP UTP [id number] [facility] 12:30:00 12:30:00 t; JOHAN CHAKRABORTY ity of [place], M.D. [facility] 2016-08-25 2016-08-25 Appointmen PALMER, UTP UTP [id number] [facility] 12:00:00 12:00:00 t; JOHAN CHAKRABORTY ity of [place], M.D. [facility] 2016-07-28 2016-07-28 Appointmen PALMER, UTP UTP [id number] Univers 12:00:00 12:00:00 t; JOHAN CHAKRABORTY ity of [place], M.D. [facility] Results Test Description Test Time Test Comments Results Result Comments Source POCT urinalysis dipstick manually resulted 2021-05-21 18:08: 00 Test Item Value Reference Range Interpretation Comme nts Color, UA (test code = 1076) Yellow Clarity, UA (test code = Clear 8329325) Glucose, UA (test code = Negative Negative 7474127) Bilirubin, UA (test code = Negative Negative 5758472) Ketones, Urine (test code = Negative Negative, Trace 36878-3) Spec Grav, UA (test code = >1.030 400780388) Blood, UA (test code = Negative 738110313) pH, UA (test code = 5547396) 5.0-8.5 Protein, UA (test code = Negative Negative, Trace, 4569640) 200(+2)mg/dL, 15/mg/dL Urobilinogen, UA (test code See_Comment [Automated message] The = 4992921) system which ge nerated this result tra nsmitted reference range : 0.2. The reference r trinidad was not used to int erpret this result as normal/abnormal . Nitrite, UA (test code = Negative Negative, Trace 9756189) Leukocytes, UA (test code = Trace Negative, Trace 3867422) Lab Interpretation (test Abnormal code = 76826-6) [facility][QL] T4, [id number] 14:13:00 Test Item Value Reference Range Interpretation Comments T4, FREE (test code = T4, FREE) 1.2 ng/dl 0.8-1.8 N [facility][QL] TSH, 3RD [id number] 14:13:00 Test Item Value Reference Range Interpretation Comments TSH; Normal (test 0.64 {MIU/L} N Reference Range code = 57533-1) > or = 20 Years 0.40-4.5 0 Range s First trimes ter 0.26-2.66 Second trimeste r 0.55-2.73 Third trimester 0.43-2.91 [facility][QL] VITAMIN [id number] 14:13:00 Test Item Value Reference Range Interpretation Comments VITAMIN B12 (test code = VITAMIN 720 pg/ml 200-1100 N B12) [facility][QL] VITAMIN D, 25-HYDROXY, LC/MS/[id number] 14:13:00 Test Item Value Reference Range Interpretation [...] and D3 fractions is re quired, the [employer] vascular solution D(TM)25-OH VIT D, (D2,D3), LC/MS/MS is recommended: order code 23559 (pat ients >2yrs).See Note 1 Note 1 For additional information, pl ease refer to http://educatio nBizimply/fa q/TSG406 (This link is b eing provided for informational/e ducational purposes only.) [facility][QL] HCG, TOTAL, [id number] 14:58:00 Test Item Value Reference Range Interpretation [...] or approved byt he FDA or the emergency vehicle dispatcher of the assay. [facility][O] Urine Test (in office)2020-02-10 09:22:00 Test Item Value Reference Range Interpretation Comments Test, Urine; Normal (test negative N code = 2106-3) [facility][Q] HIV-1/2 Antigen and Antibodies, Fourth Generation, with [id number] 00:00:00 Test Item Value Reference Range Interpretation Comments HIV AG/AB, 4TH GEN; TNP N TEST NOT PERFORMED No Normal (test code = suitable specimen 30054-4) received. [facility][Q] HEPATITIS B SURFACE ANTIGEN W/REFL CONFIRM 2020-02-10 00:00:00 Test Item Value Reference Range Interpretation Comments HEPATITIS B SURFACE TNP N TEST NOT PERFORMED No ANTIGEN; Normal (test suitab le specimen code = 5195-3) received. [facility][QL] HEPATITIS C [id number] 00:00:00 Test Item Value Reference Range Interpretation Comments HEPATITIS C ANTIBODY; TNP N TEST N OT PERFORMED No Normal (test code = suitable specimen 07002-6) received. [facility][QL] BV/ VAGINITIS PANEL DNA PROBE AFFIRM 2020-02-10 00:00:00 Test Item Value Reference Range Interpretation Comments TRICHOMONAS: (test code = NOT DETECTED NOT DETECTED N TRICHOMONAS:) GARDNERELLA: (test code = NOT DETECTED NOT DETECTED N GARDNERELLA:) SINDI: (test code = SINDI:) NOT DETECTED NOT DETECTED N [facility][] CHLAMYDIA/N. GONORRHOEAE RNA, [id number] 00:00:00 Test Item Value Reference Range Interpretation Comments CHLAMYDIA NOT DETECTED NOT DETECTED N TRACHOMATIS RNA, TMA, UROGENITAL; Normal (test code = 83503-0) NEISSERIA NOT DETECTED NOT DETECTED N GONORRHOEAE RNA, TMA, UROGENITAL; Normal (test code = 10687-6) See Comment (test See Comment The analyt ical code = See Comment) performa nce characteristics of thisassay, when used to test SurePat h(TM) specimens have beendetermined by [employer] cs. The modifications h avenot been cleared or approved by the FDA. This assay hasb een validated pursu ant to the CLIA regula tions and isused for clinical purpos es. For additional information, pl ease refer tohttps://educa tion.FRM Study Course. Kaazing/faq /CGV641(This li nk is being provided for information/edu cationa l purposes only .) [facility][QL] RPR (DX) W/REFL TITER AND CONFIRMATORY [id number] 00:00:00 Test Item Value Reference Range Interpretation Comments RPR (DX) W/REFL TITER AND TNP N TE ST NOT PERFORMED No CONFIRMATORY TESTING (test s uitable specimen code = RPR (DX) W/REFL recei marco antonio. TITER AND CONFIRMATORY TESTING) [facility][QL] LIPID [id number] 10:45:00 Test Item Value Reference Range Interpretation Comments CHOLESTEROL, TOTAL; 152 mg/dl <200 N Normal (test code = 2093-3) HDL CHOLESTEROL; 52 mg/dl > OR = 50 N Normal (test code = 5-9) TRIGLYCERIDES; 44 mg/dl <150 N Normal (test code = 2571-8) LDL-CHOLESTEROL; 87 {MG/DL N Reference r trinidad: Normal (test code = ACOSTA} <100 Rishabh irable range 06200-9) <100 mg/dL for primary prevent ion; <70 [...] SS et al . SIVAN. 2013;310( 19): 6684-4544 (http://educati on.[employer]. com/f aq/UTA265) CHOL/HDLC RATIO 2.9 {CALC} <5.0 N (test code = CHOL/HDLC RATIO) NON HDL CHOLESTEROL 100 {MG/DL <130 N For kristi ents with (test code = NON HDL ACOSTA} diabete s plus 1 CHOLESTEROL) major ASCVD ris k factor, treatin g to a non-HDL-C goa l of <100 mg/dL (LDL -C of <70 mg/dL) is considered a therapeutic opt ion. [facility][QL] CBC (INCLUDES DIFF/PLT)2019-11-18 10:45:00 Test Item Value Reference Range Interpretation Comments WHITE BLOOD CELL COUNT 5.8 {Thousand/u} 3.8-10.8 N (test code = WHITE BLOOD CELL COUNT) RED BLOOD CELL COUNT (test 4.57 {Million/uL} 3.80-5.10 N code = RED BLOOD CELL COUNT) HEMOGLOBIN; Normal (test 12.7 g/dl 11.7-15.5 N code = 40129-9) HEMATOCRIT; Normal (test 38.8 % 35.0-45.0 N code = 4544-3) MCV; Normal (test code = 84.9 fL 80.0-100.0 N 787-2) MCHC; Normal (test code = 32.7 g/dl 32.0-36.0 N 43237-2) RDW; Normal (test code = 13.4 % 11.0-15.0 N 788-0) PLATELET COUNT; Normal 156 {Thousand/u} 140-400 N (test code = 777-3) MPV; Above High Threshold 13.3 fL 7.5-12.5 (test code = 44631-4) ABSOLUTE NEUTROPHILS (test 3178 {cells/uL} 1121-1387 N code = ABSOLUTE NEUTROPHILS) ABSOLUTE LYMPHOCYTES [...] Normal (test 6.3 % N code = 35142-6) EOSINOPHILS; Normal (test 4.8 % N code = 59386-6) BASOPHILS; Normal (test 0.7 % N code = 55677-7) [facility][QL] T4, [id number] 10:45:00 Test Item Value Reference Range Interpretation Comments T4, FREE (test code = T4, FREE) 1.2 ng/dl 0.8-1.8 N [facility][QL] TSH, 3RD [id number] 10:45:00 Test Item Value Reference Range Interpretation Comments TSH; Normal (test 1.00 {MIU/L} N Reference Range code = 70353-1) > or = 20 Years 0.40-4.5 0 Range s First trimes ter 0.26-2.66 Second trimeste r 0.55-2.73 Third trimester 0.43-2.91 [facility][QL] HEMOGLOBIN [id number] 10:45:00 Test Item Value Reference Range Interpretation [...] di abetes in children. Ac cording to [place] [employer] bet[employer] Association (ADA)guidelines , hemoglobin A1c <7.0% represents optimalcontrol in non- di abetic patients. Differentmetric s may apply to specif ic patient populat ions. Standards of De dical Care in Diabete s(ADA). [facility][Q] THINPREP TIS PAP REFLEX HPV mRNA [...] Normal (test intraepit helial lesion code = 89930-6) or malignanc y. COMMENT:; Normal See Comment N This Pap te st has been (test code = evaluated with ) computerassiste d technology. SURGEON/PRESIDENT: See Comment N LLL,CT(ASC P)CT screening (test code = location: [facility] SURGEON/PRESIDENT:) [place] [id number] [address], [place] [phone] See Comment (test See Comment EXPLANATOR Y [...] hist oric and current clinica l information. [facility][QL] BV/ VAGINITIS PANEL DNA PROBE AFFIRM 2019-11-18 00:00:00 Test Item Value Reference Range Interpretation Comments TRICHOMONAS: (test code = NOT DETECTED NOT DETECTED N TRICHOMONAS:) GARDNERELLA: (test code = NOT DETECTED NOT DETECTED N GARDNERELLA:) SINDI: (test code = SINDI:) NOT DETECTED NOT DETECTED N [facility] [id number] 16:26:57 Test Item Value Reference Range Interpretation [...] = 02-04-2020 N Expiration Dt) Thyroid Stimulating [id number] 11:20:02 Test Item Value Reference Range Interpretation Comments TSH (test code = TSH) 1.240 mIU/mL 0.270-4.200 Lipid [id number] 11:15:20 Test Item Value Reference Range Interpretation Comments Cholesterol Total 155 mg/dL 0-200 RISK OF HE ART (test code = DISEASEPublishe d by Cholesterol Total) [place] [employer] Cecilia lyte Optimal Borderl ine [...] LDL/HDL Ratio=L DL Calc/HDL Chol Urine Drug [id number] 22:17:44 Test Item Value Reference Range Interpretation [...] matory test if desired . HCG Qualitative [id number] 22:17:43 Test Item Value Reference Range Interpretation [...] 72 hours. Lot # (test code = 900625 N Lot #) Expiration Dt (test 2020-05-06 N code = Expiration Dt) Neg Control (test Negative code = Neg Control) Pos Control (test Positive code = Pos Control) Internal QC (test Acceptable code = Internal QC) Urinalysis with Culture, if [id number] 21:59:26 Test Item Value Reference Range Interpretation [...] Ind?) rule GL_SJM_UA_MICRO _IN D Comprehensive Metabolic [id number] 21:49:42 Test Item Value Reference Range Interpretation [...] A/G 1.2 ratio N Ratio) Comprehensive Metabolic [id number] 21:49:42 Test Item Value Reference Range Interpretation [...] ag e have not been validated by th e MDRD study and should be interpreted wit h caution. eGFR R esult Interpretation: eGFR > or = 60 is in the Normal RangeeGF R < 60 may mean kid buzz diseaseeGFR < 1 5 may mean kidney failure Rang es recommended by the National Kidney Foundation, http://nkdep.ni h.gov Alcohol [id number] 21:49:42 Test Item Value Reference Range Interpretation Comments Ethanol Level (test <0.00 g/dL 0.00-0.01 Intoxica kortney 0.080 g/dL code = Ethanol or more Level) Ethanol Inst (test <0 N code = Ethanol Inst) Comprehensive Metabolic [id number] 21:49:42 Test Item Value Reference Range Interpretation [...] ag e have not been validated by [facility] MDRD study and should be interpreted wit [...] ag e have not been validated by [facility] MDRD study and should be interpreted wit h caution. eGFR R esult Interpretation: eGFR > or = 60 is in the Normal RangeeGF R < 60 may mean kid buzz diseaseeGFR < 1 5 may mean kidney failure Rang es recommended by the National Kidney Foundation, http://nkdep.ni h.gov Complete Blood Count with [id number] 21:48:40 Test Item Value Reference Range Interpretation [...] code = IPF) 0 % N Automated [id number] 21:48:40 Test Item Value Reference Range Interpretation Comments Neutro Auto (test code = Neutro 62.7 % 36.0-70.0 Auto) Lymph Auto (test code = Lymph Auto) 27.0 % 12.0-44.0 Brown Auto (test code = Brown Auto) 6.5 % 0.0-11.0 Eos, Auto (test code = Eos, Auto) 3.0 % 0.0-7.0 Basophil Auto (test code = Basophil 0.1 % 0.0-2.0 Auto) Neutro Absolute (test code = Neutro 5.4 x10 1.6-7.4 Absolute) Lymph Absolute (test code = Lymph 2.34 x10 .50-4.60 Absolute) Brown Absolute (test code = Brown .56 x10 .00-1.20 Absolute) Eos Absolute (test code = Eos 0.26 x10 0.00-0.74 Absolute) Baso Absolute (test code = Baso 0.01 x10 0.00-0.21 Absolute) IG [id number] 21:48:40 Test Item Value Reference Range Interpretation Comments IG (test code = IG) 0.7 % 0.0-5.0 IG Abs (test code = IG Abs) 0 x10 N [QL] CBC (INCLUDES DIFF/PLT)2018-08-05 09:52:01 Test Item Value Reference Range Interpretation Comments WBC (test code = 6690-2) 5.8 {K/CMM} 3.7-10.4 RBC (test code = 789-8) 4.66 {M/CMM} 4.20-5.40 Hgb (test code = 718-7) 13.4 g/dl 12.0-16.0 Hct (test code = 11939-2) 41.0 % 36.0-48.0 MCV (test code = 787-2) 88.1 fL 80.0-98.0 MCH (test code = 785-6) 28.7 pg 27.0-31.0 MCHC (test code = 786-4) 32.6 g/dl 32.0-36.0 RDW (test code = 788-0) 14.3 % 11.5-14.5 Platelet; Below Low Threshold 132 {K/CMM} 133-450 (test code = 23415-4) Mean Platelet Volume; Above High 11.7 fL 7.4-10.4 Threshold (test code = 58604-8) [facility]] [id number] 09:52:01 Test Item Value Reference Range Interpretation Comments Segmented Neutrophils (test code 56.2 % 45.0-75.0 = 70958-7) Monocytes (test code = 32846-8) 7.4 % 2.0-12.0 Lymphocytes (test code = 92710-3) 31.9 % 20.0-40.0 Eosinophils (test code = 65990-4) 4.0 % 0.0-4.0 Basophils (test code = 706-2) 0.5 % 0.0-1.0 Segs-Bands # (test code = 3.3 {K/CMM} 1.5-8.1 57818-4) Lymphocytes # (test code = 1.8 {K/CMM} 1.0-5.5 25395-5) Monocytes # (test code = 28123-3) 0.4 {K/CMM} 0.0-0.8 Eosinophils # (test code = 0.2 {K/CMM} 0.0-0.5 92910-8) [facility]] HEMOGLOBIN [id number] 09:52:01 Test Item Value Reference Range Interpretation Comments Hemoglobin A1c; Above High Threshold 5.9 % <=5.6 (test code = 4548-4) [facility][] HEPATITIS B SURFACE ANTIGEN W/REFL CONFIRM 2018-08-05 09:52:01 Test Item Value Reference Range Interpretation Comments Hepatitis B Surface Antigen (test Negative Negative code = 5195-3) [facility]] CMP [id number] 09:52:01 Test Item Value Reference Range Interpretation Comments Sodium Level 139 {mEq/l} 135-145 (test code = 2951-2) Potassium Level 4.2 {mEq/l} 3.5-5.1 (test code = 2823-3) Chloride Level 106 {mEq/l} 95-109 (test code = 2075-0) Carbon Dioxide 24 {mEq/l} 24-32 (test code = 2027-9) AGAP (test code = 13.2 {mEq/l} 10.0-20.0 73776-9) Glucose Lvl (test 81 mg/dl 70-99 Adult refe rence range code = 2345-7) values reflec t the clinical guidel inesof the [place] Diabet es Association. Creatinine Lvl 1.00 mg/dl 0.50-1.40 (test code = 2160-0) Blood Urea 15 mg/dl 7-22 Nitrogen (test code = 3094-0) BUN/Creatinine 15 6-25 Ratio (test code = 3097-3) Total Protein 7.9 g/dl 6.4-8.4 (test code = 2885-2) Albumin Lvl (test 3.9 g/dl 3.5-5.0 code = 1751-7) Globulin (test 4.0 g/dl 2.7-4.2 code = 86884-2) A/G Ratio (test 1.0 0.7-1.6 code = 1759-0) Calcium Level 9.1 mg/dl 8.5-10.5 Total (test code = 98313-4) ALT (test code = 15 u/l 0-65 1743-4) AST (test code = 12 u/l 0-37 34163-6) Alk Phos (test 82 u/l 39-136 code = 1783-0) Bili Total (test 0.4 mg/dl 0.2-1.3 code = 1975-2) eGFR (test code = 78 The eGFR i s calculated 47080-8) {ML/MIN/1.7} using the CKD-E PI formula. In [...] Kidney Disease Education Progr am(NKDEP) which butch berry recommends that when the eGFR is used in patientswith ex tremes of body mass index for purposes of cole g dosing, the eGFR should be multiplied by t he estimated BMI. [facility]] LIPID [id number] 09:52:01 Test Item Value Reference Range Interpretation Comments Chol (test code = 2093-3) 155 mg/dl <=199 Trig (test code = 2571-8) 55 mg/dl <=149 HDL Cholesterol; Below Low 59 mg/dl >=61 Threshold (test code = 2085-9) CHD Risk; Below Low Threshold (test 2.63 3.90-5.80 code = 51932-4) LDL (test code = 90744-6) 85 mg/dl <=99 VLDL (test code = VLDL) 11 [facility]] T4, [id number] 09:52:01 Test Item Value Reference Range Interpretation Comments T4 Free (test code = 3024-7) 1.18 ng/dl 0.76-1.46 [facility]] TSH, 3RD [id number] 09:52:01 Test Item Value Reference Range Interpretation Comments TSH (test code = 94899-0) 0.715 {uIU/ml} 0.360-3.740 [facility]] HEPATITIS C [id number] 09:52:01 Test Item Value Reference Range Interpretation Comments Hepatitis C Antibody (test code = Negative 59057-0) [facility][] HIV AB, HIV 1/2, EIA, WITH [id number] 09:52:01 Test Item Value Reference Range Interpretation Comments HIV Ag/Ab 4th Gen Negative Negative HIV test r esults should be (test code = considered posi tive only 17183-1) when both the s creening andthe confirma tory tests are positive. A negative confirmatory te st in patientswith a positive screening test does not exclude HIV inf ection. If clincallywarran kortney, an HIV RNA quantitativ e test should be order ed. [facility]] VITAMIN D, 25-HYDROXY, LC/MS/[id number] 09:52:01 Test Item Value Reference Range Interpretation Comments Vitamin D, 25-OH, 14.5 ng/ml 30.0-100.0 Reference range is based Total (test code on recommen dations in the = Vitamin D, EndocrineSociet y Clinical 25-OH, Total) Practice Guide line (J Clin Endocrinol Zdwcc8332;96:19 11-1930) [facility]] [id number] 09:52:01 Test Item Value Reference Range Interpretation Comments RPR (test code = 00229-6) Non-Reactive Non-Reactive [facility]. [facility] - GC/[id number] 00:00:00 Test Item Value Reference Range Interpretation Comments GC/Chlamydia REPORT (test code = See Comment 48605-0) [facility][H] HIV 4th Gen w/ [id number] 16:08:01 Test Item Value Reference Range Interpretation Comments HIV Ag/Ab 4th Gen (test code = HIV Negative Negative Ag/Ab 4th Gen) [facility]] CBC (INCLUDES DIFF/PLT)2017-02-20 16:08:01 Test Item Value Reference Range Interpretation Comments WBC (test code = WBC) 10.9 {K/CMM} 3.7-10.4 RBC (test code = RBC) 4.14 {M/CMM} 4.20-5.40 Hgb (test code = 54520-8) 12.4 g/dl 12.0-16.0 Hct (test code = [...] 11.7 fL 7.4-10.4 = Mean Platelet Volume) [facility]] [id number] 16:08:01 Test Item Value Reference Range Interpretation Comments Segmented Neutrophils; Above High 75.6 % 45.0-75.0 Threshold (test code = 13071-1) Monocytes #; Above High Threshold 0.9 {K/CMM} 0.0-0.8 (test code = 63238-4) Lymphocytes (test code = 15.1 % 20.0-40.0 Lymphocytes) Eosinophils # (test code = 0.1 {K/CMM} 0.0-0.5 30309-7) Basophils (test code = 96251-7) 0.2 % 0.0-1.0 Segs-Bands #; Above High 8.2 {K/CMM} 1.5-8.1 Threshold (test code = 21156-7) Lymphocytes # (test code = 1.6 {K/CMM} 1.0-5.5 83350-5) [facility]] [id number] 16:08:01 Test Item Value Reference Range Interpretation Comments RPR (test code = 57461-4) Non Reactive Non Reactive [facility][] STREPTOCOCCUS, GROUP B CULTURE (Genital Strep Screen)2017-02-20 16:08:01 Test Item Value Reference Range Interpretation Comments FINAL REPORT (test No Beta-Hemolytic code = FINAL REPORT) Streptococci Isolated [facility]
[2021-06-12 16:59] LABS: Urine Blood Negative (Negative); Urine Glucose Negative (Negative); Urine Protein Negative (Negative); Urine Specific Gravity >=1.030 (1.005-1.030)
[2021-06-12 17:03] LABS: Absolute Lymphocytes (CBC) 2.1 K/uL (0.7-4.9); Hematocrit 34.2 % (36.0-45.0); Lymphocytes % 21.7 % (15.3-44.8); MPV 10.8 fL (7.6-11.3); RBC Red Blood Cell Count 4.03 M/uL (3.86-4.86)
[2021-06-12 17:36] LABS: BUN Blood Urea Nitrogen 13 mg/dL (7-18); Bicarbonate 26 mmol/L (21-32); Glucose Level 81 mg/dL (74-106); HCG, Quantitative 19073 mIU/mL (1-3); Potassium 3.6 mmol/L (3.5-5.1); Sodium Level 136 mmol/L (136-145)
--- NOTE | 2021-06-12 17:37 | ER ---
Nurse's Notes [facility] Name: Alecia Rhodes Age: 30 yrs Sex: Female : 1990 Arrival Date: 06/12/2021 Time: 15:42 Bed 26 Private MD: Diagnosis: Pelvic and perineal pain Presentation: 06/12 16:02 Chief complaint: Patient states: Lower abdominal pain and an unusual amount of fluid in ld1 my vaginal area. I am trying to figure out if this is normal - my last was totally different so I want to make sure I am not "leaking.". Coronavirus screen: At this time, the client does not indicate any symptoms associated with coronavirus-19. Ebola Screen: No symptoms or risks identified at this time. Initial Sepsis Screen: Does the patient meet any 2 criteria? No. Patient's initial sepsis screen is negative. Does the patient have a suspected source of infection? No. Patient's initial sepsis screen is negative. Risk Assessment: Do you want to hurt yourself or someone else? Patient reports no desire to harm self or others. Onset of symptoms was June 12, 2021. 16:02 Method Of Arrival: Ambulatory ld1 16:02 Acuity: RICHARD 4 ld1 Triage Assessment: 16:04 General: Appears in no apparent distress. comfortable, Behavior is calm, cooperative, ld1 appropriate for age. Pain: Denies pain. Neuro: Level of Consciousness is awake, alert, obeys commands, Oriented to person, place, time, situation. Respiratory: Airway is patent Respiratory effort is even, unlabored. GI: Abdomen is round distended, Reports cramping. 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 - Social history:: Smoking status: Patient denies any tobacco usage or history of. Patient/guardian denies using alcohol. Screenin:03 Abuse screen: Denies threats or abuse. Denies injuries from another. Nutritional eo2 screening: No deficits noted. Tuberculosis screening: No symptoms or risk factors identified. Fall Risk None identified. Assessment: 17:00 General: Appears in no apparent distress. comfortable, Behavior is calm, cooperative. eo2 17:03 Neuro: Level of Consciousness is awake, alert, obeys commands, Oriented to person, eo2 place, time, situation, Denies dizziness, headache. Cardiovascular: No deficits noted. Denies chest pain, shortness of breath, Respiratory: No deficits noted. Denies cough, shortness of breath. GI: Reports cramping, abdominal cramping with unusual amount of vaginal discharge for 1 week. denies N/V/D. Vital Signs: 16:02 BP 111 / 72; Pulse 75; Resp 18; Temp 97.9(TE); Pulse Ox 100% on R/A; Weight 81.65 kg; ld1 Height 5 ft. 5 in. (165.10 cm); Pain 0/10; 17:03 BP 122 / 85; Pulse 67; Resp 15; Pulse Ox 100% ; Pain 4/10; eo2 18:06 BP 105 / 76; Pulse 69; Resp 17; Pulse Ox 100% ; Pain 0/10; eo2 16:02 Body Mass Index 29.95 (81.65 kg, 165.10 cm) ld1 ED Course: 15:42 Patient arrived in ED. as 16:04 Triage completed. ld1 16:04 Arm band placed on right wrist. ld1 16:06 Alpa Reece RN is Primary Nurse. lr4 16:10 Korey Treviño PA is PHCP. jmm 16:10 Wes Orr MD is Attending Physician. jmm 16:30 Inserted saline lock: 20 gauge in right antecubital area, using aseptic technique. eo2 Blood collected. 17:00 CBC with Diff Sent. eo2 17:00 BMP Sent. eo2 17:00 Quantitative Hcg Sent. eo2 17:00 HCG, Quantitative Sent. eo2 17:00 Urine Culture Sent. eo2 17:03 Patient has correct armband on for positive identification. Pulse ox on. NIBP on. Door eo2 closed. Noise minimized. Warm blanket given. 17:06 No provider procedures requiring assistance completed. eo2 17:18 OB Limited In Process Unspecified. EDMS 18:06 IV discontinued, intact. eo2 Administered Medications: No medications were administered Outcome: 17:37 Discharge ordered by MD. womack 18:06 Discharged to home ambulatory, with family. eo2 18:06 Condition: stable 18:06 Discharge instructions given to patient, Instructed on discharge instructions, follow up and referral plans. Demonstrated understanding of instructions, follow-up care. 18:08 Patient left the ED. eo2 Signatures: Dispatcher [employer] EDKorey Pickett PA PA jmm Martinez, Amelia as Dibbern, Lauren, RN RN ld1 Yen Allan RN RN eo2 Alpa Reece RN RN lr4 Corrections: (The following items were deleted from the chart) 16:05 16:04 Allergies: Aspirin; ld1 ld1 17:18 17:18 In radiology for 1st Trimest Single 1st Fetus+US.RAD.NIK. EDMS EDMS
--- NOTE | 2021-06-12 17:37 | EDPHYS ---
Physician Documentation [facility] Name: Alecia Rhodes Age: 30 yrs Sex: Female : 1990 Arrival Date: 06/12/2021 Time: 15:42 Bed 26 Private MD: Wes Barnes HPI: 06/12 16:18 This 30 yrs old Black Female presents to ER via Ambulatory with complaints of Pelvic jmm Pain - 17 wks preg, Vaginal Discharge. 16:18 The patient presents with vaginal discharge. Onset: The symptoms/episode began/occurred jmm gradually. Modifying factors: The symptoms are alleviated by nothing, the symptoms are aggravated by nothing. Associated signs and symptoms: Pertinent positives: vaginal discharge, Pertinent negatives: fever. 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 - Social history:: Smoking status: Patient denies any tobacco usage or history of. Patient/guardian denies using alcohol. ROS: 16:18 Constitutional: Negative for fever, chills, and weight loss, Cardiovascular: Negative jmm for chest pain, palpitations, and edema, Respiratory: Negative for shortness of breath, cough, wheezing, and pleuritic chest pain. 16:18 Back: Negative for injury and pain, MS/Extremity: Negative for injury and deformity. 16:18 Abdomen/GI: Positive for abdominal pain. 16:18 : Positive for vaginal discharge. 16:18 All other systems are negative. Exam: 16:18 Constitutional: This is a well developed, well nourished patient who is awake, alert, jmm and in no acute distress. Head/Face: atraumatic. Eyes: EOMI, no conjunctival erythema appreciated ENT: Moist Mucus Membranes Neck: Trachea midline, Supple Chest/axilla: Normal chest wall appearance and motion. Cardiovascular: Regular rate and rhythm. No edema appreciated Respiratory: Normal respirations, no respiratory distress appreciated Abdomen/GI: Non distended, soft Back: Normal ROM Skin: General appearance color normal MS/ Extremity: Moves all extremities, no obvious deformities appreciated, no edema noted to the lower extremities Neuro: Awake and alert Psych: Behavior is normal, Mood is normal, Patient is cooperative and pleasant Vital Signs: 16:02 BP 111 / 72; Pulse 75; Resp 18; Temp 97.9(TE); Pulse Ox 100% on R/A; Weight 81.65 kg; ld1 Height 5 ft. 5 in. (165.10 cm); Pain 0/10; 17:03 BP 122 / 85; Pulse 67; Resp 15; Pulse Ox 100% ; Pain 4/10; eo2 18:06 BP 105 / 76; Pulse 69; Resp 17; Pulse Ox 100% ; Pain 0/10; eo2 16:02 Body Mass Index 29.95 (81.65 kg, 165.10 cm) ld1 MDM: 16:18 Patient medically screened. [facility] 17:36 Data reviewed: vital signs, nurses notes. Counseling: I had a detailed discussion with shanta the patient and/or guardian regarding: the historical points, exam findings, and any diagnostic results supporting the discharge/admit diagnosis, radiology results, the need for outpatient follow up, to return to the emergency department if symptoms worsen or persist or if there are any questions or concerns that arise at home. 17:45 ED course: Alert nontoxic in appearance in the ED. Ultrasound did not reveal any [facility] obvious abnormality. Patient will follow with her PULP PRESS TENDER in 1 to 2 days for reevaluation otherwise given strict return precautions. Patient understood agrees to plan of care.. 06/12 16:23 Order name: CBC with Diff; Complete Time: 17:14 [facility] 06/12 16:23 Order name: BMP; Complete Time: 17:37 [facility] 06/12 16:24 Order name: Quantitative Hcg [facility] 06/12 16:25 Order name: HCG, Quantitative; Complete Time: 17:37 [facility] 06/12 16:27 Order name: Urine Culture; Complete Time: 00:03 [facility] 06/12 17:00 Order name: Urine Dipstick-Ancillary; Complete Time: 17:14 [facility] 06/12 16:23 Order name: Urine Dipstick-Ancillary (obtain specimen); Complete Time: 16:54 [facility] 06/12 16:23 Order name: Saline Lock; Complete Time: 17:00 jmm 06/12 17:18 Order name: OB Limited; Complete Time: 00:03 EDMS Administered Medications: No medications were administered Disposition Summary: 06/12/21 17:37 Discharge Ordered Location: Home [facility] Condition: Stable jmm Diagnosis - Pelvic and perineal pain jmm Followup: jmm - With: Private Physician - When: 1 - 2 days - Reason: Recheck today's complaints, Continuance of care, Re-evaluation by your physician Discharge Instructions: - Discharge Summary Sheet jm - Second Trimester of jmm - First Trimester of jm Forms: - Medication Reconciliation Form [facility] - Thank You Letter [facility] - Antibiotic Education [facility] - Prescription Opioid Use [facility] Addendum: 06/16/2021 18:19 Co-signature as Attending Physician, Wes Orr MD I agree with the assessment and c fisher plan of care. Signatures: Dispatcher [employer] Wes Stroud MD MD cha Mickail, Joel, PA PA [facility] Yamile Ge, RN RN ld1 Corrections: (The following items were deleted from the chart) 06/12 16:05 16:04 Allergies: Aspirin; ld1 ld1 17:18 16:26 1st Trimest Single 1st Fetus+US.RAD.BRZ ordered. EDNH EDMS
--- NOTE | 2021-06-12 18:07 | RAD REPORT ---
EXAM DESCRIPTION: US - OB Limited - 06/12/2021 5:18 pm CLINICAL HISTORY: pelvic pain, fluid leakage, COMPARISON: Transvaginal OB dated 07/23/2016 FINDINGS: Limited OB sonography was performed. body and limb movement was observed. Heart rate is 141 BPM. No gross anatomic abnormality seen. measurements were obtained yielding an 18 week 1 day age. The calculated CHAKA is 11/12/2021. Amniotic fluid volume is normal. Placenta is anterior with no abnormality seen. Internal os is closed . IMPRESSION: As detailed above, single 18 week IUP with no suspicious or unexpected finding.
[2021-06-12 18:45] VITALS: TEMP 97.9; O2SAT 100
[2021-06-12 18:47] VITALS: BP 105/76
== END 2021-06-12 18:08 | disposition home or self-care (01) ==
LOC: ER 15:38
DX: O26.892 Other specified pregnancy related conditions, second trimester (principal); Z3A.17 17 weeks gestation of pregnancy
CPT/HCPCS: 36415; 76815; 80048; 81003; 84702; 85025; 87086; 87088; 99284

== ENCOUNTER 2021-07-13 10:37 | Emergency (ER) | payer OTHER ==
--- OUTSIDE RECORDS SUMMARY | 2021-07-13 10:44 | XMS REPORT | Continuity of Care Document ---
:1990 Author Organization [facility] t Address 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 00:00: 00 Encounter Encounter Disease Active [facility] for for 2-15 Health supervisio supervisio 00:00: n of n of 00 normal normal , , antepartum antepartum History of History of Problem Active U nivers herpes herpes [place] of genital[place] genitalis [place] [facility] Super[place] Supervis[place] Problem Active U nivers n of n of ity of normal normal [place] [facility] ans Encounter Encounter Problem Active [...] Active Swelling Due to UT to 07-15 ulcerati Health substanc 00:00: e colitis e 00 aspirin Drug Active [facility] aspirin Drug Active [facility] aspirin Drug Active [facility] aspirin Drug Active [facility] aspirin Drug Active [facility] aspirin Drug Active [facility] aspirin Drug Active [facility] aspirin Drug Active [facility] aspirin Drug Active [facility] aspirin Drug Active [facility] aspirin Drug Active [facility] aspirin Allergy Active [facility] to drug ity of (finding [place] ) Physici ans Social History Social Habit Start Date Stop Date Quantity Comments Source ASSERTION 2021-02-22 [facility] 00:00:00 History [facility] Alcohol Std Drinks History [facility] Alcohol Comment Exposure to Not sure [facility] SARS-CoV-2 (event) Alcohol intake 2021-04-26 2021-04-26 Ex-drinker [facility] 00:00:00 00:00:00 (finding) History [facility] 2021-04-26 2021-04-26 [facility] Alcohol Frequency 00:00:00 00:00:00 History [facility] 2021-04-26 2021-04-26 [facility] Alcohol Binge 00:00:00 00:00:00 Tobacco use and 2021-03-12 2021-03-12 Smokeless tobacco [facility] exposure 00:00:00 00:00:00 non-user Sex Assigned At [birth year] [facility] 00:00:00 00:00:00 Smoking Status Start Date Stop Date Source Never smoked tobacco [facility] Medications Ordered Filled Start Stop Current Ordering Indication Dosage Frequency Signature Comments Components Source Medication Medication Date Date Medication? Clinician (SIG) Name Name metoclopram Yes 10mg Q.25D Take 10 mg [facility] vitaliy 3-15 by mouth Health (Reglan) 10 11:31: (four) MG tablet 25 times a day. metoclopram Yes 10mg Q.25D Take 10 mg UT vitaliy 2-15 by mouth Health (Reglan) 10 11:31: (four) MG tablet 04 times a day. metoclopram Yes 10mg Q.25D Take 10 mg UT vitaliy 1-20 by mouth Health (Reglan) 10 13:43: (four) MG tablet 10 times a day. ondansetron 2021- Yes [id number] 4mg Take 1 UT ODT 1-20 02-04 tablet ( Health (Zofran-ODT 00:00: 05:59 mg total) ) 4 MG 00 :00 by mouth disintegrat every 8 ing tablet (eight) hours if needed for nausea or vomiting for up to 14 days. aspirin 81 2020-04- No [id number] 81mg QD Chew 1 UT MG chewable 2-23 12-24 tablet (81 H ealth tablet 00:00: 05:59 mg total) 00 :00 1 (one) time each day. aspirin 81 2020-04- No [id number] 81mg QD Chew 1 UT MG chewable 2-23 12-24 tablet (81 H ealth tablet 00:00: 05:59 mg total) 00 :00 1 (one) time each day. aspirin 81 2020-04- No [id number] 81mg QD Chew 1 UT MG chewable 2-23 12-24 tablet (81 H ealth tablet 00:00: 05:59 mg total) 00 :00 1 (one) time each day. Prenat-Fe 2020-04 Yes [id number] One tab UT Poly-Methfo 2-07 daily Health l-FA-DHA 00:00: (Vitafol 00 Ultra) 29-0.6-0.4- 200 MG capsule Prenat-2020-04 Yes [id number] One tab UT Poly-Methfo 2-07 daily Health l-FA-DHA 00:00: (Vitafol 00 Ultra) 29-0.6-0.4- 200 MG capsule Prenat-2020-04 Yes [id number] One tab UT Poly-Methfo 2-07 daily Health l-FA-DHA 00:00: (Vitafol 00 Ultra) 29-0.6-0.4- 200 MG capsule Doxylamine- 2020-04- No [id number] 1{tbl} QD Take 1-2 UT Pyridoxine 2-07 03-08 tablets by Lorne dill (Diclegis) 00:00: 05:59 mouth at 10-10 MG 00 :00 night if tablet needed delayed-rel (vomiting) ease . Can increase to 4x/day Doxylamine- 2020-04- No [id number] 1{tbl} QD Take 1-2 UT Pyridoxine 2-07 03-08 tablets by Lorne dill (Diclegis) 00:00: 05:59 mouth at 10-10 MG 00 :00 night if tablet needed delayed-rel (vomiting) ease . Can increase to 4x/day meclizine Yes TAKE 1 UT (Antivert) 7-21 TABLET BY [facility] 25 MG 00:00: MOUTH tablet 00 THREE TIMES A DAY NEEDED FOR DIZZINESS meclizine Yes TAKE 1 UT (Antivert) 7-21 TABLET BY Heal th 25 MG 00:00: MOUTH tablet 00 THREE TIMES A DAY NEEDED FOR DIZZINESS meclizine Yes TAKE 1 UT (Antivert) 7-21 TABLET BY [facility]al th 25 MG 00:00: MOUTH tablet 00 THREE TIMES A DAY NEEDED FOR DIZZINESS valACYclovi valACYclovi 2019-04 Yes AZEEMA 1 QD TAKE 1 Univers r HCl - 500 r HCl - 500 1-06 MOOS[place] M.D. TABLET ity of MG Oral MG Oral 00:00: DAILY. [place] Tablet Tablet 00 Physici ans valACYclovi 2019-04 Yes 500mg 500 mg. UT r (Valtrex) 06 Health 500 MG 00:00: tablet 00 valACYclovi 2019-04 Yes 500mg 500 mg. UT r (Valtrex) 06 Health 500 MG 00:00: tablet 00 valACYclovi 2019-04 Yes 500mg 500 mg. UT r (Valtrex) 04-11 Health 500 MG 00:00: tablet 00 Vitamin D Vitamin D Yes AZEEMA 1 TAKE 1 Univers (Ergocalcif (Ergocalcif 5-10 [place]OS[place] M.D. CAPSULE ity of abigail) 1.25 abigail) 1.25 00:00: WEEKLY [place] MG (01015 MG ([id number] 00 Physi ci UT) Oral UT) Oral ans Capsule Capsule Immunizations Ordered Immunization Filled Immunization Date Status Commen ts Source Name Name Fluzone Quadrivalent 2017-01-22 Completed [facility] ersity of 0.5 ML Intramuscular 00:00:00 [facility] Suspension Prefilled Syringe Tdap (Adacel) 2017-01-08 Completed [facility] 00:00:00 Marek Calderón ns Vital Signs Vital Name Observation Time Observation Value Comments Source Systolic blood 2021-06-18 105 mm[Hg] [facility] pressure 16:31:00 Diastolic blood 2021-06-18 67 mm[Hg] [facility] pressure 16:31:00 Heart rate 2021-06-18 105 /min [facility] 16:31:00 Body temperature 2021-06-18 36.22 Catherine [facility] 16:31:00 Body weight 2021-06-18 82.101 kg [facility] 16:31:00 BMI 2021-06-18 29.21 kg/m2 [facility] 16:31:00 Systolic blood 2021-05-21 103 mm[Hg] [facility] pressure 17:30:00 Diastolic blood 2021-05-21 68 mm[Hg] [facility] pressure 17:30:00 Heart rate 2021-05-21 81 /min [facility] 17:30:00 Body temperature 2021-05-21 36.33 Catherine [facility] 17:30:00 Body weight 2021-05-21 80.74 kg [facility] 17:30:00 BMI 2021-05-21 28.73 kg/m2 [facility] 17:30:00 Systolic blood 2021-04-25 119 mm[Hg] [facility] pressure 19:43:00 Diastolic blood 2021-04-25 70 mm[Hg] [facility] pressure 19:43:00 Body temperature 2021-04-25 36.11 Catherine [facility] 19:43:00 Body weight 2021-04-25 78.382 kg [facility] 19:43:00 BMI 2021-04-25 27.89 kg/m2 [facility] 19:43:00 Height/Length 2021-04-23 167.6 cm Measured [...] 08:26:48 Systolic blood 2020-04-11 145 mm[Hg] [facility] 15:02:00 Position: [place] [facility] s Sitting Diastolic blood 2020-04-11 82 mm[Hg] [facility] 15:02:00 Position: [place] [facility] Sitting Body height 2020-04-11 66 [in_us] University 15:02:00 [place] [facility] s Weight 2020-04-11 180.375 [lb_av] University o f 15:02:00 [place] [facility] s Body mass index 2020-04-11 29.11 kg/m2 University o f (BMI) [Ratio] 15:02:00 [place] Physicia meena Body temperature 2020-04-11 97.5 [degF] Method: [facility] 15:02:00 Temporal [place] [facility] s Heart Rate 2020-04-11 88 /min University 15:02:00 [place] [facility] s Systolic blood 2020-02-10 103 mm[Hg] Location: [place]; [facility] 09:17:00 Position: [place] Physician s Sitting Diastolic blood 2020-02-10 71 mm[Hg] Location: [place]; [facility] 09:17:00 Position: [place] Phys[facility] s Sitting Body height 2020-02-10 66 [in_us] [facility] 09:17:00 [place] [facility] Weight 2020-02-10 175 [lb_av] University 09:17:00 [place] [facility] s Body mass index 2020-02-10 28.25 kg/m2 University o f (BMI) [Ratio] 09:17:00 [place] Physicia ns Heart Rate 2020-02-10 88 /min [facility] 09:17:00 [place] [facility] s Body temperature 2020-02-10 97.5 [degF] Method: [facility] 09:17:00 Temporal [place] [facility] s Systolic blood 2019-11-18 123 mm[Hg] Location: [facility] [facility] 09:50:00 Position: [place] [facility]ician s Sitting Diastolic blood 2019-11-18 73 mm[Hg] Location: [place]; [facility] 09:50:00 Position: [place] [facility] s Sitting Body height 2019-11-18 66 [in_us] [facility] 09:50:00 [place] [facility] Weight 2019-11-18 171 [lb_av] [facility] 09:50:00 [place] [facility] s Body mass index 2019-11-18 27.6 kg/m2 University o f (BMI) [Ratio] 09:50:00 [place] [facility] ns Body temperature 2019-11-18 98.2 [degF] University 09:50:00 [place] [facility] Heart Rate 2019-11-18 67 /min University of 09:50:00 [place] [facility] BP Systolic 2018-08-05 116 mm[Hg] Location: [place]; [facility] 09:10:00 Position: [place] Physician s Sitting BP Diastolic 2018-08-05 71 mm[Hg] Location: [place]; [facility] 09:10:00 Position: [place] [facility]ician s Sitting Height 2018-08-05 66 [in_us] University of 09:10:00 [place] [facility] Weight 2018-08-05 160 [lb_av] University of 09:10:00 [place] [facility] Body Mass Index 2018-08-05 25.82 kg/m2 University o f Calculated 09:10:00 [place] [facility] Heart Rate 2018-08-05 76 /min University of 09:10:00 [place] [facility] BP Systolic 2017-08-04 132 mm[Hg] Location: [place]; [facility] 15:15:00 Position: [place] Physician s Sitting BP Diastolic 2017-08-04 75 mm[Hg] Location: [place]; [facility] 15:15:00 Position: [place] [facility]ician s Sitting Height 2017-08-04 66 [in_us] University of 15:15:00 [place] [facility] Weight 2017-08-04 166 [lb_av] University of 15:15:00 [place] [facility] Body Mass Index 2017-08-04 26.79 kg/m2 University o f Calculated 15:15:00 [place] [facility] Heart Rate 2017-08-04 82 /min University of 15:15:00 [place] [facility] BP Systolic 2017-05-01 135 mm[Hg] Location: [place]; [place] of 10:08:00 Position: [place] [facility]ician s Sitting BP Diastolic 2017-05-01 60 mm[Hg] Location: [place]; [facility] 10:08:00 Position: [place] [facility] s Sitting Height 2017-05-01 66 [in_us] University of 10:08:00 [place] [facility] Weight 2017-05-01 164 [lb_av] University of 10:08:00 [place] [facility] Body Mass Index 2017-05-01 26.47 kg/m2 University o f Calculated 10:08:00 [place] [facility] Heart Rate 2017-05-01 84 /min University of 10:08:00 [place] [facility] BP Systolic 2017-04-02 123 mm[Hg] Location: [place]; [place] of 13:16:00 Position: [place] [facility]ician s Sitting BP Diastolic 2017-04-02 76 mm[Hg] Location: [place]; [facility] 13:16:00 Position: [place] [facility] s Sitting Height 2017-04-02 66 [in_us] University of 13:16:00 [place] [facility] Weight 2017-04-02 168 [lb_av] University of 13:16:00 [place] [facility] Body Mass Index 2017-04-02 27.12 kg/m2 University o f Calculated 13:16:00 [place] [facility] Heart Rate 2017-04-02 76 /min University 13:16:00 [place] [facility] BP Systolic 2017-03-12 126 mm[Hg] Location: [facility]; [facility] :34:00 Position: [place] [facility]ician s Sitting BP Diastolic 2017-03-12 74 mm[Hg] Location: [facility]; [facility] :34:00 Position: [place] [facility] s Sitting Height 2017-03-12 66 [in_us] University 09:34:00 [place] [facility] Weight 2017-03-12 189 [lb_av] [facility] 09:34:00 [place] [facility] Body Mass Index 2017-03-12 30.51 kg/m2 University o f Calculated 09:34:00 [place] [facility] Heart Rate 2017-03-12 90 /min [facility] 09:34:00 [place] [facility] BP Systolic 2017-03-05 118 mm[Hg] Location: [facility] 09:12:00 Position: [place] Physician s Sitting BP Diastolic 2017-03-05 70 mm[Hg] [facility] 09:12:[facility] Position: [place] [facility] s Sitting Height 2017-03-05 66 [in_us] [facility] 09:12:00 [place] [facility] Weight 2017-03-05 189 [lb_av] [facility] 09:12:00 [place] [facility] Body Mass Index 2017-03-05 30.51 kg/m2 University o f Calculated 09:12:00 [place] [facility] BP Systolic 2017-02-25 125 mm[Hg] Location: [facility] 09:01:00 Position: [place] [facility]ician s Sitting BP Diastolic 2017-02-25 74 mm[Hg] [facility] 09:01:[facility] Position: [place] [facility] S[facility] Height 2017-02-25 66 [in_us] University 09:01:00 [place] [facility] Weight 2017-02-25 186 [lb_av] University 09:01:00 [place] [facility] Body Mass Index 2017-02-25 30.02 kg/m2 University o f Calculated 09:01:00 [place] [facility] Heart Rate 2017-02-25 89 /min [facility] 09:01:00 [place] [facility] s BP Systolic 2017-02-20 114 mm[Hg] [facility] 15:37:00 Position: [place] [facility]ician s Sitting BP Diastolic 2017-02-20 70 mm[Hg] [facility] 15:37:00 Position: [place] [facility] s Sitting Height 2017-02-20 66 [in_us] [facility] of 15:37:00 [place] [facility] Weight 2017-02-20 187 [lb_av] [facility] of 15:37:00 [place] [facility] Body Mass Index 2017-02-20 30.18 kg/m2 University o f Calculated 15:37:00 [place] [facility] Heart Rate 2017-02-20 82 /min University of 15:37:00 [place] [facility] BP Systolic 2017-02-19 106 mm[Hg] Location: [place]; [facility] 10:39:00 Position: [place] [facility]ician s Sitting BP Diastolic 2017-02-19 73 mm[Hg] Location: [facility] :39:00 Position: [place] [facility]ician s Sitting Height 2017-02-19 66 [in_us] University of 10:39:00 [place] [facility] Heart Rate 2017-02-19 93 /min [place] of 10:39:00 [place] [facility] Weight 2017-02-19 188 [lb_av] University of 10:39:00 [place] [facility] Body Mass Index 2017-02-19 30.34 kg/m2 University o f Calculated 10:39:00 [place] [facility] BP Systolic 2017-02-19 106 mm[Hg] [facility] 10[facility]30:00 Position: [place] [facility] s Sitting BP Diastolic 2017-02-19 73 mm[Hg] [facility] 10:30:00 Position: [place] [facility] Sitting Height 2017-02-19 66 [in_us] University of 10:30:00 [place] [facility] Heart Rate 2017-02-19 93 /min University of 10:30:00 [place] [facility] BP Systolic 2017-02-05 102 mm[Hg] [facility] 10:15:00 Position: [place] [facility] Sitting BP Diastolic 2017-02-05 60 mm[Hg] Location: [facility] 10:15:00 Position: [place] [facility] s Sitting Height 2017-02-05 66 [in_us] University of 10:15:00 [place] [facility] Weight 2017-02-05 186 [lb_av] University 10:15:00 [place] [facility] Body Mass Index 2017-02-05 30.02 kg/m2 University o f Calculated 10:15:00 [place] [facility] BP Systolic 2017-01-22 106 mm[Hg] Location: [facility] 09:47:00 Position: [place] [facility]ician s Sitting BP Diastolic 2017-01-22 61 mm[Hg] Location: [facility] 09:47:00 Position: [place] [facility]ician s Sitting Height 2017-01-22 66 [in_us] [facility] 09:47:00 [place] [facility] Heart Rate 2017-01-22 102 /min [facility] 09:47:00 [place] [facility] s Weight 2017-01-22 185 [lb_av] [facility] 09:47:00 [place] [facility] s Body Mass Index 2017-01-22 29.86 kg/m2 [facility] Calculated 09:47:00 [place] [facility] Procedures Procedure Date / Time Performing Clinician Source Performed POCT URINALYSIS 2021-05-21 18:08:00 [facility] DIPSTICK [QL] TSH, 3RD 2020-04-11 00:00:00 [facility] GENERATION Physicians [QL] T4, FREE 2020-04-11 00:00:00 [facility] Physicians [QL] VITAMIN D, 2020-04-11 00:00:00 [facility] 25-HYDROXY, LC/MS/MS Physicians [QL] VITAMIN B12 2020-04-11 00:00:00 [facility] Physicians [QL] HCG, TOTAL, QN 2020-03-27 00:00:00 [facility] Physicians [Q] CHLAMYDIA/N. 2020-02-10 00:00:00 [facility] GONORRHOEAE RNA, TMA Physicians [QL] BV/ VAGINITIS 2020-02-10 00:00:00 [facility] PANEL DNA PROBE AFFIRM Physician s [Q] HEPATITIS B SURFACE 2020-02-10 00:00:00 [facility] ANTIGEN W/REFL CONFIRM Physician s [Q] HIV-1/2 Antigen and 2020-02-10 00:00:00 [facility] Antibodies, Fourth Physicians Generation, with Reflexes [QL] HEPATITIS C 2020-02-10 00:00:00 [facility] ANTIBODY Physicians [QL] RPR (DX) W/REFL 2020-02-10 00:00:00 [facility] TITER AND CONFIRMATORY Physician s TESTING [L] Comp. Metabolic 2019-11-18 00:00:00 [facility] Panel (13) Physicians [QL] CBC (INCLUDES 2019-11-18 00:00:00 [facility] DIFF/PLT) Physicians [QL] HEMOGLOBIN A1c 2019-11-18 00:00:00 [facility] Physicians [QL] LIPID PANEL 2019-11-18 00:00:00 [facility] Physicians [QL] T4, FREE 2019-11-18 00:00:00 [place] [facility] Physicians [QL] TSH, 3RD 2019-11-18 00:00:00 [place] [facility] GENERATION Physicians [QL] CMP W/EGFR 2019-11-18 00:00:00 [place] [facility] Physicians [Q] THINPREP TIS PAP 2019-11-18 00:00:00 [facility] REFLEX HPV mRNA E6/E7 Physicians [QL] BV/ VAGINITIS 2019-11-18 00:00:00 [facility] PANEL DNA PROBE AFFIRM Physician s [L] Vitamin D, 2018-08-05 00:00:00 [place] [facility] 25-Hydroxy, Total - Physicians Esoterix [QLH] CBC (INCLUDES 2018-08-05 00:00:00 [facility] DIFF/PLT) Physicians [QLH] CMP W/EGFR 2018-08-05 00:00:00 [facility] Physicians [QLH] HEMOGLOBIN A1c 2018-08-05 00:00:00 [facility] Physicians [QLH] LIPID PANEL 2018-08-05 00:00:00 [facility] Physicians [QLH] T4, FREE 2018-08-05 00:00:00 [place] [facility] Physicians [QLH] TSH, 3RD 2018-08-05 00:00:00 [place] [facility] GENERATION Physicians [Q] HIV-1/2 Antigen and 2018-08-05 00:00:00 [facility] Antibodies, Fourth Physicians Generation, with Reflexes [QH] HEPATITIS B 2018-08-05 00:00:00 [facility] SURFACE ANTIGEN W/REFL Physician s CONFIRM [QH] HIV AB, HIV 1/2, 2018-08-05 00:00:00 [facility] EIA, WITH REFLEXES Physicians [QLH] HEPATITIS C 2018-08-05 00:00:00 [facility] ANTIBODY Physicians [QLH] RPR 2018-08-05 00:00:00 [place] [facility] Physicians . [facility] - GC/Chlamydia 2018-08-05 00:00:00 [facility] Physicians . [facility] - Affirm VPIII 2018-08-05 00:00:00 [facility] (BV Panel) Physicians [Q] HIV-1/2 Antigen and 2017-02-20 00:00:00 [facility] Antibodies, Fourth Physicians Generation, with Reflexes [QH] STREPTOCOCCUS, 2017-02-20 00:00:00 [facility] GROUP B CULTURE Physicians (Genital Strep Screen) [QLH] CBC (INCLUDES 2017-02-20 00:00:00 [facility] DIFF/PLT) Physicians [QLH] RPR 2017-02-20 00:00:00 [facility] Physicians Plan of Care Planned Activity Planned Date Details Comments Source Diagnostic Test 2020-04-11 [QL] TSH, 3RD [facility] Pending 00:00:00 GENERATION [code = Physician s [QL] TSH, 3RD GENERATION] Diagnostic Test 2020-04-11 [QL] T4, FREE [code [facility] Pending 00:00:00 = [QL] T4, FREE] Physicians Diagnostic Test 2020-04-11 [QL] VITAMIN D, [facility] Pending 00:00:00 25-HYDROXY, LC/MS/MS Physici ans [code = [QL] VITAMIN D, 25-HYDROXY, LC/MS/MS] Diagnostic Test 2020-04-11 [QL] VITAMIN B12 [facility] Pending 00:00:00 [code = [QL] VITAMIN Physici ans B12] Encounters Start End Encounter Admission Attending Care Care Encounter Source Date/Time Date/Time Type Type Clinicians Facility Department ID 2021-07-03 Outpatient [facility] [id number] [place] 10:30:12 [id number] [facility] 2021-06-28 Outpatient [facility] [id number] [place] 05:13:48 [id number] [facility] 2021-06-18 Outpatient [place], [facility] [id number] [place] 11:50:10 [facility] 2021-05-22 Outpatient [facility] [id number] [place] 15:45:59 [facility] 2021-05-08 Outpatient [facility] [id number] [place] 09:45:24 [facility] 2021-06-18 2021-06-18 Routine [place], [facility] [id number] [place] 11:30:00 11:50:51 Azeema SUGAR [id number] H ealth [place] [facility] [id number] 9 [id number] AND 2 WOMENS 2021-05-21 2021-05-21 [facility] [id number] [place] 11:10:00 12:05:58 Azeema [place] [id number] H ealth [place] [id number] 2 [id number] AND 2 WOMENS 2021-04-25 2021-04-25 [facility] [id number] [place] 13:40:00 14:15:12 Azeema [place] [id number] H ealt [place] [id number] [id number] AND 2 WOMENS 2020-06-26 2020-06-26 Patient [place] [facility] [id number] 00:00:00 00:00:00 Outreach [facility] [id number] [facility] [id number] PAVILLION [id number] 2020-04-11 2020-04-11 Appointmen PALMER [facility] Women's [id number] Univers 14:40:00 14:40:00 t; JOHAN CHAKRABORTY [facility] Jennifer PRADO M.D. Physici ans 2020-02-10 2020-02-10 Appointmen PALMER [facility] [id number] Univers 09:10:00 09:10:00 t; JOHAN CHAKRABORTY [facility] Jennifer PRADO M.D. Physici ans 2019-11-18 2019-11-18 Appointmen PALMER [facility] [id number] [facility] 09:50:00 09:50:00 t; JOHAN CHAKRABORTY [facility] Jennifer PRADO M.D. Physici ans 2019-05-11 2019-05-11 [facility] [id number] 00:00:00 00:00:00 Janett Garcia ORAL AND MAXILLOFACIAL PATHOLOGIST [id number] [place] [id number] MATERNAL [id number] & CHILD [address] [place] [address] 2019-04-11 2019-04-11 Emergency [facility] MIGUEL ANGEL [id number] 20:30:00 20:30:00 [facility] 2018-08-05 2018-08-05 Appointshaquille CHAKRABORTY [facility] Women's [id number] Univers 09:20:00 09:20:00 t; JOHAN CHAKRABORTY [facility] Jennifer Physici ans 2017-08-04 2017-08-04 Sara CHAKRABORTY [facility] Women's [id number] Univers 15:00:00 15:00:00 t; JOHAN CHAKRABORTY [facility] Phys[facility] 2017-05-01 2017-05-01 Sara CHAKRABORTY [facility] Women's [id number] Univers 10:10:00 10:10:00 t; JOHAN CHAKRABORTY Forman Bert M.D. [facility] Jennifer Physici ans 2017-04-02 2017-04-02 Sara CHAK[facility]ABORTY [facility] [facility] [id number] Univers 13:00:00 13:00:00 t; JOHAN CHAKRABORTY Center ity of AZEEMA, M.D. [facility] Jennifer Physici ans 2017-03-12 2017-03-12 Sara CHAKRABORTY [facility] Women's [id number] Univers 09:20:00 09:20:00 t; JOHAN CHAKRABORTY Center ity of AZEEMA, M.D. [facility] Jennifer Physici ans 2017-03-05 2017-03-05 Sara CHAKRABORTY [facility] Women's [id number] Univers 09:20:00 09:20:00 t; JOHAN CHAKRABORTY Center ity of AZEEMA, M.D. [facility] Jennifer Physici ans 2017-02-25 2017-02-25 Sara CHAKRABORTY, ADAMARIS Women[facility] [id number] Univers 09:00:00 09:00:00 t; JOHAN CHAKRABORTY, [facility] 2017-02-20 2017-02-20 Appointmen KEVINVONDA, [facility] Women's [id number] Univers 15:00:00 15:00:00 t; JOHAN CHAKRABORTY, [facility] Jennifer [facility] 2017-02-19 2017-02-19 Appointmen PALMER, [facility] Women's [id number] Univers 10:20:00 10:20:00 t; JOHAN CHAKRABORTY, [facility] Jennifer [facility] 2017-02-05 2017-02-05 Appointshaquille CHAKRABORTY, [facility] UTP [id number] Univers 10:20:00 10:20:00 t; JOHAN CHAKRABORTY [facility] 2017-01-22 2017-01-22 Appointmen PALMER, [facility] UTP [id number] Univers 09:40:00 09:40:00 t; [facility] 2017-01-08 2017-01-08 Appointshaquille CHAKRABORTY, [facility] UTP [id number] Univers 09:20:00 09:20:00 t; JOHAN CHAKRABORTY it federico PRADO M.D. [facility] 2016-12-25 2016-12-25 Appointmen PALMER, [facility] UTP [id number] Univers 09:30:00 09:30:00 t; JOHAN CHAKRABORTY ity of AZEEMA, M.D. [facility] 2016-12-11 2016-12-11 Appointshaquille CHAKRABORTY, [facility] UTP [id number] Univers 09:30:00 09:30:00 t; JOHAN CHAKRABORTY ity of AZEEMA, M.D. [facility] 2016-11-28 2016-11-28 Appointmen PALMER, [facility] UTP [id number] Univers 09:30:00 09:30:00 t; JOHAN CHAKRABORTY, ity of Jennifer [facility]ADO [facility] 2016-11-14 2016-11-14 Appointmen PALMER, ADAMARIS UTP [id number] Univers 09:30:00 09:30:00 t; JOHAN CHAKRABORTY, ity of Jennifer PRADO [facility] 2016-10-20 2016-10-20 Appointmen PALMER, ADAMARIS UTP [id number] Univers 12:30:00 12:30:00 t; JOHAN CHAKRABORTY, ity of Jennifer PRADO [facility] 2016-10-17 2016-10-17 [facility]MER, ADAMARIS UTP [id number] Univers 13:00:00 13:00:00 t; JOHAN CHAKRABORTY, ity of Jennifer PRADO [facility] 2016-10-02 2016-10-02 [facility] PALMER, ADAMARIS UTP [id number] Univers 14:00:00 14:00:00 t; JOHAN CHAKRABORTY, ity of Jennifer RPADO [facility] 2016-09-22 2016-09-22 [facility] PALMER, ADAMARIS UTP [id number] Univers 12:30:00 12:30:00 t; JOHAN CHAKRABORTY, ity of Jennifer PRADO [place] Jennifer Physici ans 2016-08-25 2016-08-25 Appointmen PALMER, ADAMARIS UTP [id number] Univers 12:00:00 12:00:00 t; JOHAN CHAKRABORTY, ity of Jennifer PRADO [facility] 2016-07-28 2016-07-28 Appointmen PALMER, ADAMARIS UTP [id number] Univers 12:00:00 12:00:00 t; JOHAN CHAKRABORTY ity of Jennifer PRADO [place] Jennifer Physici ans Results Test Description Test Time Test Comments Results Result Comments Source POCT urinalysis dipstick manually resulted 2021-05-21 18:08: 00 Test Item Value Reference Range Interpretation Comme nts Color, UA (test code = 1076) Yellow Clarity, UA (test code = Clear 8441902) Glucose, UA (test code = Negative Negative 1914333) Bilirubin, UA (test code = Negative Negative 2632542) Ketones, Urine (test code = Negative Negative, Trace 83050-9) Spec Grav, UA (test code = >1.030 669190467) Blood, UA (test code = Negative 947384287) pH, UA (test code = 5512794) 5.0-8.5 Protein, UA (test code = Negative Negative, Trace, 6731957) 200(+2)mg/dL, 15/mg/dL Urobilinogen, UA (test code See_Comment [Automated message] The = 6534377) system which ge nerated this result tra nsmitted reference range : 0.2. The reference r trinidad was not used to int erpret this result as normal/abnormal . Nitrite, UA (test code = Negative Negative, Trace 3303562) Leukocytes, UA (test code = Trace Negative, Trace 1464363) Lab Interpretation (test Abnormal code = 83590-3) [facility][QL] T4, [id number] 14:13:00 Test Item Value Reference Range Interpretation Comments T4, FREE (test code = T4, FREE) 1.2 ng/dl 0.8-1.8 N [facility][QL] TSH, 3RD [id number] 14:13:00 Test Item Value Reference Range Interpretation Comments TSH; Normal (test 0.64 {MIU/L} N Reference Range code = 84630-7) > or = 20 Years 0.40-4.5 0 Range s First trimes ter 0.26-2.66 Second trimeste r 0.55-2.73 Third trimester 0.43-2.91 [facility][QL] VITAMIN [id number] 14:13:00 Test Item Value Reference Range Interpretation Comments VITAMIN B12 (test code = VITAMIN 720 pg/ml 200-1100 N B12) [facility][QL] VITAMIN D, 25-HYDROXY, LC/MS/[id number] 14:13:00 Test Item Value Reference Range Interpretation [...] and D3 fractions is re quired, the [employer] Environmental [employer]ure D(TM)25-OH VIT D, (D2,D3), LC/MS/MS is recommended: order code 01879 (pat ients >2yrs).See Note 1 Note 1 For additional information, pl ease refer to http://educatio nTaxiForSure.com/fa q/IPX710 (This link is b eing provided for informational/e ducational purposes only.) [facility][QL] HCG, TOTAL, [id number] 14:58:00 Test Item Value Reference Range Interpretation [...] or approved byt he FDA or the mental health consultant of the assay. [facility][O] Urine Test (in office)2020-02-10 09:22:00 Test Item Value Reference Range Interpretation Comments Test, Urine; Normal (test negative N code = 2106-3) [facility][Q] HIV-1/2 Antigen and Antibodies, Fourth Generation, with [id number] 00:00:00 Test Item Value Reference Range Interpretation Comments HIV AG/AB, 4TH GEN; TNP N TEST NOT PERFORMED No Normal (test code = suitable specimen 06394-1) received. [facility][Q] HEPATITIS B SURFACE ANTIGEN W/REFL CONFIRM 2020-02-10 00:00:00 Test Item Value Reference Range Interpretation Comments HEPATITIS B SURFACE TNP N TEST NOT PERFORMED No ANTIGEN; Normal (test suitab le specimen code = 5195-3) received. [facility][QL] HEPATITIS C [id number] 00:00:00 Test Item Value Reference Range Interpretation Comments HEPATITIS C ANTIBODY; TNP N TEST N OT PERFORMED No Normal (test code = suitable specimen 82728-8) received. [facility][QL] BV/ VAGINITIS PANEL DNA PROBE AFFIRM 2020-02-10 00:00:00 Test Item Value Reference Range Interpretation Comments TRICHOMONAS: (test code = NOT DETECTED NOT DETECTED N TRICHOMONAS:) GARDNERELLA: (test code = NOT DETECTED NOT DETECTED N GARDNERELLA:) SINID: (test code = SINDI:) NOT DETECTED NOT DETECTED N [facility][Q] CHLAMYDIA/N. GONORRHOEAE RNA, [id number] 00:00:00 Test Item Value Reference Range Interpretation Comments CHLAMYDIA NOT DETECTED NOT DETECTED N TRACHOMATIS RNA, TMA, UROGENITAL; Normal (test code = 82118-0) NEISSERIA NOT DETECTED NOT DETECTED N GONORRHOEAE RNA, TMA, UROGENITAL; Normal (test code = 21979-3) See Comment (test See Comment The analyt ical code = See Comment) performa nce characteristics of thisassay, when used to test SurePat h(TM) specimens have beendetermined by [employer] cs. The modifications h avenot been cleared or approved by the FDA. This assay hasb een validated pursu ant to the CLIA regula tions and isused for clinical purpos es. For additional information, pl ease refer tohttps://educa tion.Revcaster. com/faq /OQO859(This li nk is being provided for information/edu cationa l purposes only .) [facility][QL] RPR (DX) W/REFL TITER AND CONFIRMATORY [id number] 00:00:00 Test Item Value Reference Range Interpretation Comments RPR (DX) W/REFL TITER AND TNP N TE ST NOT PERFORMED No CONFIRMATORY TESTING (test s uitable specimen code = RPR (DX) W/REFL recei marco antonio. TITER AND CONFIRMATORY TESTING) [facility][QL] LIPID [id number] 10:45:00 Test Item Value Reference Range Interpretation Comments CHOLESTEROL, TOTAL; 152 mg/dl <200 N Normal (test code = 2093-3) HDL CHOLESTEROL; 52 mg/dl > OR = 50 N Normal (test code = 2085-9) TRIGLYCERIDES; 44 mg/dl <150 N Normal (test code = 2571-8) LDL-CHOLESTEROL; 87 {MG/DL N Reference r trinidad: Normal (test code = ACOSTA} <100 Rishabh irable range 21385-4) <100 mg/dL for primary prevent ion; <70 [...] SS et al . SIVAN. 2013;310( 19): 7369-6478 (http://educati on.Happiest Minds. BostInno/f aq/GJD277) CHOL/HDLC RATIO 2.9 {CALC} <5.0 N (test code = CHOL/HDLC RATIO) NON HDL CHOLESTEROL 100 {MG/DL <130 N For kristi ents with (test code = NON HDL ACOSTA} diabete s plus 1 CHOLESTEROL) major ASCVD ris k factor, treatin g to a non-HDL-C goa l of <100 mg/dL (LDL -C of <70 mg/dL) is considered a therapeutic opt ion. [facility][QL] CBC (INCLUDES DIFF/PLT)2019-11-18 10:45:00 Test Item Value Reference Range Interpretation Comments WHITE BLOOD CELL COUNT 5.8 {Thousand/u} 3.8-10.8 N (test code = WHITE BLOOD CELL COUNT) RED BLOOD CELL COUNT (test 4.57 {Million/uL} 3.80-5.10 N code = RED BLOOD CELL COUNT) HEMOGLOBIN; Normal (test 12.7 g/dl 11.7-15.5 N code = 74958-1) HEMATOCRIT; Normal (test 38.8 % 35.0-45.0 N code = 4544-3) MCV; Normal (test code = 84.9 fL 80.0-100.0 N 787-2) MCHC; Normal (test code = 32.7 g/dl 32.0-36.0 N 42995-4) RDW; Normal (test code = 13.4 % 11.0-15.0 N 788-0) PLATELET COUNT; Normal 156 {Thousand/u} 140-400 N (test code = 777-3) MPV; Above High Threshold 13.3 fL 7.5-12.5 (test code = 08794-0) ABSOLUTE NEUTROPHILS (test 3178 {cells/uL} 1181-8446 N code = ABSOLUTE NEUTROPHILS) ABSOLUTE LYMPHOCYTES [...] Normal (test 6.3 % N code = 21594-2) EOSINOPHILS; Normal (test 4.8 % N code = 45538-8) BASOPHILS; Normal (test 0.7 % N code = 30541-6) [facility][QL] T4, [id number] 10:45:00 Test Item Value Reference Range Interpretation Comments T4, FREE (test code = T4, FREE) 1.2 ng/dl 0.8-1.8 N [facility][QL] TSH, 3RD [id number] 10:45:00 Test Item Value Reference Range Interpretation Comments TSH; Normal (test 1.00 {MIU/L} N Reference Range code = 41638-1) > or = 20 Years 0.40-4.5 0 Range s First trimes ter 0.26-2.66 Second trimeste r 0.55-2.73 Third trimester 0.43-2.91 [facility][QL] HEMOGLOBIN [id number] 10:45:00 Test Item Value Reference Range Interpretation [...] di abetes in children. Ac cording to [place] Sangeetha betes Association (ADA)guidelines , hemoglobin A1c <7.0% represents optimalcontrol in non- di abetic patients. Differentmetric s may apply to specif ic patient populat ions. Standards of Ct dical Care in Diabete s(ADA). [facility][Q] THINPREP TIS PAP REFLEX HPV [...] Normal (test intraepit helial lesion code = 76669-2) or malignanc y. COMMENT:; Normal See Comment N This Pap te st has been (test code = evaluated with 61527-8) computerassiste d technology. DUPLICATE MAKER: See Comment N LLL,CT(ASC P)CT screening (test code = location: City Notes DUPLICATE MAKER:) [place] [address] [address], [place] [address] 2629 See Comment (test See Comment EXPLANATOR Y [...] hist oric and current clinica l information. [facility][QL] BV/ VAGINITIS PANEL DNA PROBE AFFIRM 2019-11-18 00:00:00 Test Item Value Reference Range Interpretation Comments TRICHOMONAS: (test code = NOT DETECTED NOT DETECTED N TRICHOMONAS:) GARDNERELLA: (test code = NOT DETECTED NOT DETECTED N GARDNERELLA:) SINDI: (test code = SINDI:) NOT DETECTED NOT DETECTED N [facility]icians[facility] [id number] 16:26:57 Test Item Value Reference Range Interpretation [...] = 02-04-2020 N Expiration Dt) Thyroid Stimulating [id number] 11:20:02 Test Item Value Reference Range Interpretation Comments TSH (test code = TSH) 1.240 mIU/mL 0.270-4.200 Lipid [id number] 11:15:20 Test Item Value Reference Range Interpretation Comments Cholesterol Total 155 mg/dL 0-200 RISK OF HE ART (test code = DISEASEPublishe d by Cholesterol Total) [employer] Cecilia lyte Optimal Borderl ine [...] LDL/HDL Ratio=L DL Calc/HDL Chol Urine Drug [id number] 22:17:44 Test Item Value Reference Range Interpretation [...] matory test if desired . HCG Qualitative [id number] 22:17:43 Test Item Value Reference Range Interpretation [...] 72 hours. Lot # (test code = 756339 N Lot #) Expiration Dt (test 2020-05-06 N code = Expiration Dt) Neg Control (test Negative code = Neg Control) Pos Control (test Positive code = Pos Control) Internal QC (test Acceptable code = Internal QC) Urinalysis with Culture, if [id number] 21:59:26 Test Item Value Reference Range Interpretation [...] Ind?) rule GL_SJM_UA_MICRO _IN D Comprehensive Metabolic [id number] 21:49:42 Test Item Value Reference Range Interpretation [...] A/G 1.2 ratio N Ratio) Comprehensive Metabolic [id number] 21:49:42 Test Item Value Reference Range Interpretation [...] the National Kidney Foundation, http://nkdep.ni h.gov Alcohol [id number] 21:49:42 Test Item Value Reference Range Interpretation Comments Ethanol Level (test <0.00 g/dL 0.00-0.01 Intoxica kortney 0.080 g/dL code = Ethanol or more Level) Ethanol Inst (test <0 N code = Ethanol Inst) Comprehensive Metabolic [id number] 21:49:42 Test Item Value Reference Range Interpretation [...] ag e have not been validated by [facility] MDRD study and should be interpreted [...] ag e have not been validated by [facility] MDRD study and should be interpreted wit h caution. eGFR R esult Interpretation: eGFR > or = 60 is in the Normal RangeeGF R < 60 may mean kid buzz diseaseeGFR < 1 5 may mean kidney failure Rang es recommended by the National Kidney Foundation, http://nkdep.ni h.gov Complete Blood Count with [id number] 21:48:40 Test Item Value Reference Range Interpretation [...] code = IPF) 0 % N Automated [id number] 21:48:40 Test Item Value Reference Range Interpretation Comments Neutro Auto (test code = Neutro 62.7 % 36.0-70.0 Auto) Lymph Auto (test code = Lymph Auto) 27.0 % 12.0-44.0 Juncos Auto (test code = Juncos Auto) 6.5 % 0.0-11.0 Eos, Auto (test code = Eos, Auto) 3.0 % 0.0-7.0 Basophil Auto (test code = Basophil 0.1 % 0.0-2.0 Auto) Neutro Absolute (test code = Neutro 5.4 x10 1.6-7.4 Absolute) Lymph Absolute (test code = Lymph 2.34 x10 .50-4.60 Absolute) Juncos Absolute (test code = Juncos .56 x10 .00-1.20 Absolute) Eos Absolute (test code = Eos 0.26 x10 0.00-0.74 Absolute) Baso Absolute (test code = Baso 0.01 x10 0.00-0.21 Absolute) IG [id number] 21:48:40 Test Item Value Reference Range Interpretation Comments IG (test code = IG) 0.7 % 0.0-5.0 IG Abs (test code = IG Abs) 0 x10 N [QLH] CBC (INCLUDES DIFF/PLT)2018-08-05 09:52:01 Test Item Value Reference Range Interpretation Comments WBC (test code = 6690-2) 5.8 {K/CMM} 3.7-10.4 RBC (test code = 789-8) 4.66 {M/CMM} 4.20-5.40 Hgb (test code = 718-7) 13.4 g/dl 12.0-16.0 Hct (test code = 77098-4) 41.0 % 36.0-48.0 MCV (test code = 787-2) 88.1 fL 80.0-98.0 MCH (test code = 785-6) 28.7 pg 27.0-31.0 MCHC (test code = 786-4) 32.6 g/dl 32.0-36.0 RDW (test code = 788-0) 14.3 % 11.5-14.5 Platelet; Below Low Threshold 132 {K/CMM} 133-450 (test code = 45719-1) Mean Platelet Volume; Above High 11.7 fL 7.4-10.4 Threshold (test code = 53841-8) [facility]ENDING S[facility]] [id number] 09:52:01 Test Item Value Reference Range Interpretation Comments Segmented Neutrophils (test code 56.2 % 45.0-75.0 = 44225-6) Monocytes (test code = 44300-1) 7.4 % 2.0-12.0 Lymphocytes (test code = 12751-0) 31.9 % 20.0-40.0 Eosinophils (test code = 12892-1) 4.0 % 0.0-4.0 Basophils (test code = 706-2) 0.5 % 0.0-1.0 Segs-Bands # (test code = 3.3 {K/CMM} 1.5-8.1 86136-9) Lymphocytes # (test code = 1.8 {K/CMM} 1.0-5.5 12257-2) Monocytes # (test code = 11748-6) 0.4 {K/CMM} 0.0-0.8 Eosinophils # (test code = 0.2 {K/CMM} 0.0-0.5 65282-9) [facility]END[facility]] HEMOGLOBIN [id number] 09:52:01 Test Item Value Reference Range Interpretation Comments Hemoglobin A1c; Above High Threshold 5.9 % <=5.6 (test code = 4548-4) [facility][] HEPATITIS B SURFACE ANTIGEN W/REFL CONFIRM 2018-08-05 09:52:01 Test Item Value Reference Range Interpretation Comments Hepatitis B Surface Antigen (test Negative Negative code = 5195-3) [facility]] CMP [id number] 09:52:01 Test Item Value Reference Range Interpretation Comments Sodium Level 139 {mEq/l} 135-145 (test code = 2951-2) Potassium Level 4.2 {mEq/l} 3.5-5.1 (test code = 2823-3) Chloride Level 106 {mEq/l} 95-109 (test code = 2075-0) Carbon Dioxide 24 {mEq/l} 24-32 (test code = 2027-9) AGAP (test code = 13.2 {mEq/l} 10.0-20.0 91311-6) Glucose Lvl (test 81 mg/dl 70-99 Adult refe rence range code = 2345-7) values reflec t the clinical guidel inesof the [place] Diabet es Association. Creatinine Lvl 1.00 mg/dl 0.50-1.40 (test code = 2160-0) Blood Urea 15 mg/dl 7-22 Nitrogen (test code = 3094-0) BUN/Creatinine 15 6-25 Ratio (test code = 3097-3) Total Protein 7.9 g/dl 6.4-8.4 (test code = 2885-2) Albumin Lvl (test 3.9 g/dl 3.5-5.0 code = 1751-7) Globulin (test 4.0 g/dl 2.7-4.2 code = 56997-9) A/G Ratio (test 1.0 0.7-1.6 code = 1759-0) Calcium Level 9.1 mg/dl 8.5-10.5 Total (test code = 47212-1) ALT (test code = 15 u/l 0-65 1743-4) AST (test code = 12 u/l 0-37 55978-7) Alk Phos (test 82 u/l 39-136 code = 1783-0) Bili Total (test 0.4 mg/dl 0.2-1.3 code = 1974-2) eGFR (test code = 78 The eGFR i s calculated 88375-3) {ML/MIN/1.7} using the CKD-E PI formula. In [...] co-morbid conditions.Kristi ents with extremes in mus rolna mass or diet.The mark a above are obtained fr om the National Kidney Disease Education Progr am(NKDEP) which butch berry recommends that when the eGFR is used in patientswith ex tremes of body mass index for purposes of cole g dosing, the eGFR should be multiplied by t he estimated BMI. [facility]END[facility]] LIPID [id number] 09:52:01 Test Item Value Reference Range Interpretation Comments Chol (test code = 2093-3) 155 mg/dl <=199 Trig (test code = 2571-8) 55 mg/dl <=149 HDL Cholesterol; Below Low 59 mg/dl >=61 Threshold (test code = 2085-9) CHD Risk; Below Low Threshold (test 2.63 3.90-5.80 code = 72668-3) LDL (test code = 48570-9) 85 mg/dl <=99 VLDL (test code = VLDL) 11 [facility]] T4, [id number] 09:52:01 Test Item Value Reference Range Interpretation Comments T4 Free (test code = 3024-7) 1.18 ng/dl 0.76-1.46 [facility]END[facility]] TSH, 3RD [id number] 09:52:01 Test Item Value Reference Range Interpretation Comments TSH (test code = 54480-4) 0.715 {uIU/ml} 0.360-3.740 [facility]END[facility]] HEPATITIS C [id number] 09:52:01 Test Item Value Reference Range Interpretation Comments Hepatitis C Antibody (test code = Negative 67299-7) [facility][H] HIV AB, HIV 1/2, EIA, WITH [id number] 09:52:01 Test Item Value Reference Range Interpretation Comments HIV Ag/Ab 4th Gen Negative Negative HIV test r esults should be (test code = considered posi tive only 29751-0) when both the s creening andthe confirma tory tests are positive. A negative confirmatory te st in patientswith a positive screening test does not exclude HIV inf ection. If clincallywarran kortney, an HIV RNA quantitativ e test should be order ed. [facility]END[facility]] VITAMIN D, 25-HYDROXY, LC/MS/[id number] 09:52:01 Test Item Value Reference Range Interpretation Comments Vitamin D, 25-OH, 14.5 ng/ml 30.0-100.0 Reference range is based Total (test code on recommen dations in the = Vitamin D, EndocrineSociet y Clinical 25-OH, Total) Practice Guide line (J Clin Endocrinol Qwsrs6319;96:19 11-1930) [facility]] [id number] 09:52:01 Test Item Value Reference Range Interpretation Comments RPR (test code = 24155-9) Non-Reactive Non-Reactive [facility]. [facility] - GC/Jppcmbqwr7988-77-84 00:00:00 Test Item Value Reference Range Interpretation Comments GC/Chlamydia REPORT (test code = See Comment 45583-0) [facility][H] HIV 4th Gen w/ [id number] 16:08:01 Test Item Value Reference Range Interpretation Comments HIV Ag/Ab 4th Gen (test code = HIV Negative Negative Ag/Ab 4th Gen) [facility]] CBC (INCLUDES DIFF/PLT)2017-02-20 16:08:01 Test Item Value Reference Range Interpretation Comments WBC (test code = WBC) 10.9 {K/CMM} 3.7-10.4 RBC (test code = RBC) 4.14 {M/CMM} 4.20-5.40 Hgb (test code = 32755-4) 12.4 g/dl 12.0-16.0 Hct (test code = [...] 11.7 fL 7.4-10.4 = Mean Platelet Volume) [facility][PENDING [facility]] [id number] 16:08:01 Test Item Value Reference Range Interpretation Comments Segmented Neutrophils; Above High 75.6 % 45.0-75.0 Threshold (test code = 35849-1) Monocytes #; Above High Threshold 0.9 {K/CMM} 0.0-0.8 (test code = 13865-4) Lymphocytes (test code = 15.1 % 20.0-40.0 Lymphocytes) Eosinophils # (test code = 0.1 {K/CMM} 0.0-0.5 67250-4) Basophils (test code = 62879-3) 0.2 % 0.0-1.0 Segs-Bands #; Above High 8.2 {K/CMM} 1.5-8.1 Threshold (test code = 61934-2) Lymphocytes # (test code = 1.6 {K/CMM} 1.0-5.5 73711-7) [facility]] [id number] 16:08:01 Test Item Value Reference Range Interpretation Comments RPR (test code = 49628-4) Non Reactive Non Reactive [facility][] STREPTOCOCCUS, GROUP B CULTURE (Genital Strep Screen)2017-02-20 16:08:01 Test Item Value Reference Range Interpretation Comments FINAL REPORT (test No Beta-Hemolytic code = FINAL REPORT) Streptococci Isolated [facility]
[2021-07-13] MEDS ORDERED: ONDANSETRON 4 MG/2 ML VIAL ONE (11:42)
[2021-07-13] MEDS ORDERED: CLINDAMYCIN 900MG/D5W 900 MG/50 ML IVPB IV ONE (11:42)
[2021-07-13] MEDS ORDERED: NA CHLORIDE 0.9% 1,000 ML ONE (11:42)
[2021-07-13] MEDS ORDERED: MORPHINE 2 MG/ML SYR ONE (11:42)
[2021-07-13 12:03] LABS: Absolute Lymphocytes (CBC) 1.5 K/uL (0.7-4.9); Hematocrit 29.1 % (36.0-45.0); MPV 10.7 fL (7.6-11.3); RBC Red Blood Cell Count 3.31 M/uL (3.86-4.86)
[2021-07-13] MEDS ORDERED: LIDOCAINE 1% MPF 30 ML VIAL ONE (12:06)
[2021-07-13] MEDS ORDERED: LIDOCAINE 1% W/EPI 1:100,000 MDV 50 ML VIAL ONE (12:11)
[2021-07-13 12:14] LABS: ALT/SGPT 30 U/L (12-78); AST/SGOT 13 U/L (15-37); Albumin 2.4 g/dL (3.4-5.0); Alkaline Phosphatase 51 U/L (45-117); BUN Blood Urea Nitrogen 10 mg/dL (7-18); Bicarbonate 24 mmol/L (21-32); Bilirubin Total 0.2 mg/dL (0.2-1.0); Glucose Level 80 mg/dL (74-106); Potassium 3.7 mmol/L (3.5-5.1); Protein, Total 6.8 g/dL (6.4-8.2); Sodium Level 138 mmol/L (136-145)
[2021-07-13 12:25] LABS: Blood Morphology Comment NOT SEEN (NOT SEEN); Platelet Estimate ADEQ
--- NOTE | 2021-07-13 12:41 | ER ---
Nurse's Notes [facility] Name: Alecia Rhodes Age: 30 yrs Sex: Female : 1990 Arrival Date: 07/13/2021 Time: 10:40 Bed 19 Private MD: Diagnosis: Cutaneous abscess of buttock;22 weeks gestation of ;Elevated white blood cell count;Bandemia Presentation: 07/13 10:43 Chief complaint: Patient states: "I have a boil on my butt and I cant sit or touch it. ab2 It hurts so bad." Pt states she noticed this about a week ago. Pt is 22 weeks . Coronavirus screen: Vaccine status: Patient reports receiving the 2nd dose of the covid vaccine. Client denies travel out of the [place] in the last 14 days. At this time, the client does not indicate any symptoms associated with coronavirus-19. Ebola Screen: Patient negative for fever greater than or equal to 101.5 degrees Fahrenheit, and additional compatible Ebola Virus Disease symptoms Patient denies exposure to infectious person. Patient denies travel to an Ebola-affected area in the 21 days before illness onset. No symptoms or risks identified at this time. Initial Sepsis Screen: Does the patient meet any 2 criteria? No. Patient's initial sepsis screen is negative. Does the patient have a suspected source of infection? No. Patient's initial sepsis screen is negative. Risk Assessment: Do you want to hurt yourself or someone else? Patient reports no desire to harm self or others. Onset of symptoms is unknown. 10:43 Method Of Arrival: Ambulatory ab2 10:43 Acuity: RICHARD 4 ab2 Triage Assessment: 10:46 General: Appears in no apparent distress. uncomfortable, Behavior is calm, cooperative, ab2 appropriate for age. Pain: Complains of pain in buttocks Pain currently is 10 out of 10 on a pain scale. EENT: No deficits noted. No signs and/or symptoms were reported regarding the EENT system. Neuro: Level of Consciousness is awake, alert, obeys commands, Oriented to person, place, time, situation, Appropriate for age. Respiratory: Airway is patent Respiratory effort is even, unlabored, Respiratory pattern is regular, symmetrical. Derm: Reports pain boil on buttocks. 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 - Social history:: Smoking status: Patient denies any tobacco usage or history of. Screenin:56 Abuse screen: Denies threats or abuse. Nutritional screening: No deficits noted. ll1 Tuberculosis screening: No symptoms or risk factors identified. Fall Risk Total Craig Fall Scale indicates No Risk (0-24 pts). Assessment: 10:50 Reassessment: No changes from previously documented assessment. Patient and/or family ll1 updated on plan of care and expected duration. Pain level reassessed. Patient is alert, oriented x 3, equal unlabored respirations, skin warm/dry/pink. 11:50 Reassessment: No changes from previously documented assessment. Patient and/or family ll1 updated on plan of care and expected duration. Pain level reassessed. Patient is alert, oriented x 3, equal unlabored respirations, skin warm/dry/pink. 12:50 Reassessment: No changes from previously documented assessment. Patient and/or family ll1 updated on plan of care and expected duration. Pain level reassessed. Patient is alert, oriented x 3, equal unlabored respirations, skin warm/dry/pink. 13:34 Reassessment: No changes from previously documented assessment. Patient and/or family ll1 updated on plan of care and expected duration. Pain level reassessed. Patient is alert, oriented x 3, equal unlabored respirations, skin warm/dry/pink. Vital Signs: 10:43 BP 104 / 64; Pulse 101; Resp 18; Temp 97.8(TE); Pulse Ox 100% on R/A; Weight 83.91 kg; ab2 Height 5 ft. 6 in. (167.64 cm); Pain 10/10; 12:23 BP 94 / 66; Pulse 71; Resp 16; Pulse Ox 100% on R/A; ll1 13:33 BP 105 / 64; Pulse 70; Resp 16; Pulse Ox 100% ; ll1 10:43 Body Mass Index 29.86 (83.91 kg, 167.64 cm) ab2 Vitals: 11:56 Heart Tones 160. Found lower mid abdomen. . ll1 ED Course: 10:40 Patient arrived in ED. mr 10:45 Triage completed. ab2 10:46 Arm band placed on left wrist. ab2 10:49 Wes Orr MD is Attending Physician. austin 10:49 Jorge Louie RN is Primary Nurse. ll1 10:49 Patient placed in an exam room, on a stretcher. ll1 11:48 Bed in low position. Call light in reach. Side rails up X 1. Door closed. Noise mb7 minimized. Warm blanket given. 11:48 Inserted saline lock: 20 gauge in right antecubital area, using aseptic technique. mb7 12:40 Bertrand Foreman MD is Referral Physician. [facility] 13:15 Wound care: located on left gluteal fold was dressed with 4X4s, Patient tolerated well. ll1 13:34 Assist provider with I \\T\\ D:. IV discontinued, intact, bleeding controlled, No ll1 redness/swelling at site. Pressure dressing applied. Administered Medications: 11:47 Drug: NS 0.9% 1000 ml Route: IV; Rate: 1 bolus; Site: right antecubital; ll1 13:03 Follow up: Response: No adverse reaction; IV Status: Completed infusion; IV Intake: ll1 1000ml 11:47 Drug: Clindamycin 900 mg Route: IVPB; Infused Over: 30 mins; Site: right antecubital; ll1 13:03 Follow up: Response: No adverse reaction; IV Status: Completed infusion; IV Intake: [id number] 11:47 Drug: morphine 2 mg Route: IVP; Site: right antecubital; ll1 13:03 Follow up: Response: No adverse reaction; Pain is decreased; RASS: Alert and Calm (0) 1 11:48 Drug: Zofran (Ondansetron) 4 mg Route: IVP; Site: right antecubital; ll1 13:03 Follow up: Response: No adverse reaction ll1 Intake: 13:03 IV: 50ml; Total: 50ml. ll1 13:03 IV: 1000ml; Total: 1050ml. ll1 Outcome: 12:40 Discharge ordered by . austin 13:34 Discharged to home ambulatory. ll1 13:34 Condition: stable 13:34 Discharge instructions given to patient, Instructed on discharge instructions, follow up and referral plans. medication usage, Demonstrated understanding of instructions, follow-up care, medications, wound care, Prescriptions given X 2. 13:35 Patient left the ED. ll1 Signatures: Wes Orr MD MD cha Rivera, Mary mr Lewis, Lynsay, RN RN ll1 Anne Marie Peres mb7 Roland Randle
--- NOTE | 2021-07-13 12:41 | EDPHYS ---
Physician Documentation [facility] Name: Alecia Rhodes Age: 30 yrs Sex: Female : 1990 Arrival Date: 07/13/2021 Time: 10:40 Bed 19 Private MD: ED Physician Wes Orr HPI: 07/13 11:38 This 30 yrs old Black Female presents to ER via Ambulatory with complaints of Rectal austin Abscess. 11:38 The patient presents to the emergency department with pain in the rectal area, that is austin moderate. Onset: The symptoms/episode began/occurred 5 day(s) ago. Context: the patient has no known special context relating to the rectal area complaint(s). Modifying factors: The symptoms are alleviated by remaining still, The symptoms are aggravated by movement, sitting position. Associate signs and symptoms: The patient has no apparent associated signs or symptoms. The patient has not experienced similar symptoms in the past. 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 - Social history:: Smoking status: Patient denies any tobacco usage or history of. ROS: 11:39 Constitutional: Negative for fever, chills, and weight loss, Eyes: Negative for injury, austin pain, redness, and discharge, ENT: Negative for injury, pain, and discharge, Neck: Negative for injury, pain, and swelling, Cardiovascular: Negative for chest pain, palpitations, and edema, Respiratory: Negative for shortness of breath, cough, wheezing, and pleuritic chest pain, Back: Negative for injury and pain, : Negative for injury, bleeding, discharge, and swelling, MS/Extremity: Negative for injury and deformity, Neuro: Negative for headache, weakness, numbness, tingling, and seizure. 11:39 Abdomen/GI: Positive for abdominal distension, 22 weeks . 11:39 Skin: Positive for abscess, swelling, of the left gluteus asiya and left gluteal fold. Exam: 11:39 Constitutional: This is a well developed, well nourished patient who is awake, alert, austin and in no acute distress. Head/Face: Normocephalic, atraumatic. Eyes: Pupils equal round and reactive to light, extra-ocular motions intact. Lids and lashes normal. Conjunctiva and sclera are non-icteric and not injected. Cornea within normal limits. Periorbital areas with no swelling, redness, or edema. ENT: Nares patent. No nasal discharge, no septal abnormalities noted. Tympanic membranes are normal and external auditory canals are clear. Oropharynx with no redness, swelling, or masses, exudates, or evidence of obstruction, uvula midline. Mucous membranes moist. Neck: Trachea midline, no thyromegaly or masses palpated, and no cervical lymphadenopathy. Supple, full range of motion without nuchal rigidity, or vertebral point tenderness. No Meningismus. Chest/axilla: Normal chest wall appearance and motion. Nontender with no deformity. No lesions are appreciated. Cardiovascular: Regular rate and rhythm with a normal S1 and S2. No gallops, murmurs, or rubs. Normal PMI, no JVD. No pulse deficits. Respiratory: Lungs have equal breath sounds bilaterally, clear to auscultation and percussion. No rales, rhonchi or wheezes noted. No increased work of breathing, no retractions or nasal flaring. Abdomen/GI: Soft, non-tender, with normal bowel sounds. No distension or tympany. No guarding or rebound. No evidence of tenderness throughout. Back: No spinal tenderness. No costovertebral tenderness. Full range of motion. Neuro: Awake and alert, GCS 15, oriented to person, place, time, and situation. Cranial nerves II-XII grossly intact. Motor strength 5/5 in all extremities. Sensory grossly intact. Cerebellar exam normal. Normal gait. 11:39 Skin: Appearance: Color: normal in color, Temperature: normal temperature, Moisture: normal moisture, petechiae, not noted, ecchymosis, not noted, diaphoresis is not appreciated, abscess, that is small, approximately 3 cm(s), induration, that is moderate is noted, injury, is not appreciated, no rash present. Turgor: is excellent. Vital Signs: 10:43 BP 104 / 64; Pulse 101; Resp 18; Temp 97.8(TE); Pulse Ox 100% on R/A; Weight 83.91 kg; ab2 Height 5 ft. 6 in. (167.64 cm); Pain 10/10; 12:23 BP 94 / 66; Pulse 71; Resp 16; Pulse Ox 100% on R/A; ll1 13:33 BP 105 / 64; Pulse 70; Resp 16; Pulse Ox 100% ; ll1 10:43 Body Mass Index 29.86 (83.91 kg, 167.64 cm) ab2 Procedures: 11:58 I \T\ D: Incision and drainage was performed for an abscess of the left Prepped with [facility] Betadine, Anesthetized with 10 ml's 1% Lidocaine w/ Epi. Incised with #11 blade. Drained large amount purulent fluid. Packed with iodoform gauze, Dressing: non-Adherent dressing, the patient tolerated the procedure well. MDM: 10:49 Patient medically screened. [facility] 11:41 Differential diagnosis: hemorrhoids, fissure. Data reviewed: vital signs, nurses notes, [facility] lab test result(s), radiologic studies. Data interpreted: manager monitoring: rate is 101 beats/min, rhythm is regular, Pulse oximetry: on room air is 100 %. Counseling: I had a detailed discussion with the patient and/or guardian regarding: the historical points, exam findings, and any diagnostic results supporting the discharge/admit diagnosis, lab results, radiology results. 07/13 11:36 Order name: CBC with Diff; Complete Time: 12:39 [facility] 07/13 11:36 Order name: Comprehensive Metabolic Panel; Complete Time: 12:39 [facility] 07/13 12:06 Order name: Manual Differential; Complete Time: 12:39 EDMS 07/13 11:36 Order name: FHT's; Complete Time: 11:48 [facility] Administered Medications: 11:47 Drug: NS 0.9% 1000 ml Route: IV; Rate: 1 bolus; Site: right antecubital; ll1 13:03 Follow up: Response: No adverse reaction; IV Status: Completed infusion; IV Intake: ll1 1000ml 11:47 Drug: Clindamycin 900 mg Route: IVPB; Infused Over: 30 mins; Site: right antecubital; ll1 13:03 Follow up: Response: No adverse reaction; IV Status: Completed infusion; IV Intake: 40otex6 11:47 Drug: morphine 2 mg Route: IVP; Site: right antecubital; ll1 13:03 Follow up: Response: No adverse reaction; Pain is decreased; RASS: Alert and Calm (0) ll1 11:48 Drug: Zofran (Ondansetron) 4 mg Route: IVP; Site: right antecubital; ll1 13:03 Follow up: Response: No adverse reaction ll1 Disposition Summary: 07/13/21 12:40 Discharge Ordered Location: Home [facility] Problem: new austin Symptoms: have improved austin Condition: Stable austin Diagnosis - Cutaneous abscess of buttock austin - 22 weeks gestation of austin - Elevated white blood cell count austin - Bandemia austin Followup: austin - With: Private Physician - When: 1 - 2 days - Reason: Recheck today's complaints, Continuance of care, Re-evaluation by your physician Followup: austin - With: - When: 2 - 3 days - Reason: Recheck today's complaints, Continuance of care, Re-evaluation by your physician Discharge Instructions: - Discharge Summary Sheet austin - Skin Abscess austin - Incision and Drainage austin - How to Take a Sitz Bath austin - Skin Abscess, [id number] austin - Incision and Drainage, Care After austin Forms: - Medication Reconciliation Form austin - Thank You Letter austin - Antibiotic Education austin - Prescription Opioid Use [facility] Prescriptions: - Clindamycin HCl 300 mg Oral Capsule - take 1 capsule by ORAL route every 6 hours for 7 days; 28 capsule; Refills: 0, [facility] Product Selection Permitted - Tylenol-Codeine #3 300 mg-30 mg Oral - take 2 tablet by ORAL route every 6 hours; 16 tablet; Refills: 0, Product [facility] Selection Permitted Signatures: Dispatcher [employer] Wes Stroud MD MD cha Lewis, Lynsay RN RN ll1 Roland Randle ab2
[2021-07-13 14:19] VITALS: TEMP 97.8; O2SAT 100
[2021-07-13 14:22] VITALS: BP 105/64
== END 2021-07-13 13:35 | disposition home or self-care (01) ==
LOC: ER 10:37
PROC: 0J990ZZ Drainage of Buttock Subcutaneous Tissue and Fascia, Open Approach (ICD-10-PCS; principal; 2021-07-13)
DX: O26.892 Other specified pregnancy related conditions, second trimester (principal); Z3A.22 22 weeks gestation of pregnancy; K61.1 Rectal abscess; D72.825 Bandemia
CPT/HCPCS: 96365; 87070; 85025; 36415; 87205; 87077; 87186; 80053; 96375; 99284; 10060; J2270; J7030; J2405

== ENCOUNTER 2021-10-02 19:51 | Emergency (ER) | payer OTHER ==
--- NOTE | 2021-10-02 20:20 | ER ---
Nurse's Notes [facility] Name: Alecia Rhodes Age: 30 yrs Sex: Female : 1990 Arrival Date: 10/02/2021 Time: 19:54 Bed Waiting Private MD: Diagnosis: ED Course: 10/02 19:54 Patient arrived in ED. bp1 19:59 Araseli Tuttle FNP-C is [facility]. kb 19:59 Thompson Carrasco MD is Attending Physician. kb Administered Medications: No medications were administered Outcome: 20:20 Patient left the ED. ld1 20:26 Patient left the ED. kb Signatures: Araseli Tuttle FNP-C FNP-Ckb Paniauga, Brittany bp1 Yamile Ge, RN RN ld1
--- NOTE | 2021-10-02 20:27 | EDPHYS ---
Physician Documentation [facility] Name: Alecia Rhodes Age: 30 yrs Sex: Female : 1990 Arrival Date: 10/02/2021 Time: 19:54 Bed Waiting Private MD: ED Physician MDM: 10/02 20:26 Medical screening is not applicable. kb Administered Medications: No medications were administered Disposition Summary: 10/02/21 20:19 Eloped Disposition: Before Triage ld1 Reason: unknown ld1 Signatures: Araseli Tuttle, MARCIC AUTOMATIC WHEEL LINE OPERATOR-Yamile Merchant, RN RN ld1
== END 2021-10-02 20:26 | disposition left against medical advice (07) ==
LOC: ER 19:51
DX: Z02.9 Encounter for administrative examinations, unspecified (principal)

== ENCOUNTER 2021-10-06 01:13 | Emergency (ER) | payer OTHER ==
--- NOTE | 2021-10-06 02:40 | ER ---
Nurse's Notes [facility] Name: Alecia Rhodes Age: 30 yrs Sex: Female : 1990 Arrival Date: 10/06/2021 Time: 01:14 Bed 14 Private MD: Diagnosis: Bronchitis, not specified as acute or chronic;Cough;28 weeks gestation of Presentation: 10/06 01:47 Chief complaint: Patient states: "I just have this cough, and it feels like I am having tw5 a hard time breathing. It is getting worse over the past three days. I cannot fall alseep, and it worse at night. I wanted to get a covid test and a strep test.". Coronavirus screen: Vaccine status: Patient reports receiving the 2nd dose of the covid vaccine. Kms[employer]. Ebola Screen: Patient negative for fever greater than or equal to 101.5 degrees Fahrenheit, and additional compatible Ebola Virus Disease symptoms Patient denies exposure to infectious person. Patient denies travel to an Ebola-affected area in the 21 days before illness onset. Initial Sepsis Screen: Does the patient meet any 2 criteria? No. Patient's initial sepsis screen is negative. Does the patient have a suspected source of infection? No. Patient's initial sepsis screen is negative. Risk Assessment: Do you want to hurt yourself or someone else? Patient reports no desire to harm self or others. Onset of symptoms was October 04, 2021. 01:47 Method Of Arrival: Ambulatory tw5 01:47 Acuity: RICHARD 3 tw5 Triage Assessment: 01:49 General: Appears in no apparent distress. Behavior is calm, cooperative, appropriate tw5 for age. Pain: Pain currently is 8 out of 10 on a pain scale. Respiratory: Reports shortness of breath at rest Onset: The symptoms/episode began/occurred gradually, the patient has mild shortness of breath. 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 - Social history:: Smoking status: Patient denies any tobacco usage or history of. Screenin:44 Abuse screen: Denies threats or abuse. Nutritional screening: No deficits noted. ke1 Tuberculosis screening: No symptoms or risk factors identified. Fall Risk None identified. Assessment: 02:44 Cardiovascular: Rhythm is sinus rhythm. Respiratory: Airway is patent Respiratory ke1 effort is even, unlabored, Respiratory pattern is regular, symmetrical, Breath sounds are clear bilaterally. 03:35 GI: Abdomen is. ke1 Vital Signs: 01:47 BP 122 / 66; Pulse 93; Resp 18; Temp 98.8; Pulse Ox 97% ; Weight 88 kg; Height 5 ft. 6 tw5 in. (167.64 cm); Pain 8/10; 01:47 Body Mass Index 31.31 (88.00 kg, 167.64 cm) tw5 Vitals: 03:28 Heart Tones 180 bpm. ke1 ED Course: 01:14 Patient arrived in ED. am2 01:49 Triage completed. tw5 01:49 Arm band placed on. tw5 01:56 COVID-19 SARS RT PCR (Document "Date of Onset" if Symptomatic) Sent. tw5 01:56 Strep Sent. tw5 01:56 COVID swab sent to lab. Strep swab sent to lab. tw5 02:24 Wes Orr MD is Attending Physician. austin 02:33 Shai Lobo RN is Primary Nurse. ke1 02:45 Bed in low position. Call light in reach. ke1 02:45 No provider procedures requiring assistance completed. ke1 02:45 Patient did not have IV access during this emergency room visit. ke1 Administered Medications: 02:50 Drug: Augmentin (Amoxicillin-Clavulanate) 875 mg Route: PO; ke1 03:36 Follow up: Response: No adverse reaction ke1 Medication: 02:45 VIS not applicable for this client. ke1 Outcome: 02:40 Discharge ordered by . austin 03:36 Discharged to home ambulatory. ke1 03:36 Condition: good 03:36 Discharge instructions given to patient. 03:37 Patient left the ED. ke1 Signatures: Wes Orr MD MD cha Moreno, Amanda am2 Nida Cramer tw5 Shai Lobo RN RN ke1 Corrections: (The following items were deleted from the chart) 01:50 01:49 Home Meds: None; 02:05 01:47 Acuity: RICHARD 4
--- NOTE | 2021-10-06 02:41 | EDPHYS ---
Physician Documentation [facility] Name: Alecia Rhodes Age: 30 yrs Sex: Female : 1990 Arrival Date: 10/06/2021 Time: 01:14 Bed 14 Private MD: ED Physician Wes Orr HPI: 10/06 02:35 This 30 yrs old Black Female presents to ER via Ambulatory with complaints of Cough, austin Breathing Difficulty. 02:35 The patient or guardian reports cough, described as mild. Onset: The symptoms/episode austin began/occurred 3 day(s) ago. Severity of symptoms: At their worst the symptoms were mild, in the emergency department the symptoms are unchanged. Modifying factors: The symptoms are alleviated by nothing, the symptoms are aggravated by nothing. The patient has experienced similar episodes in the past, a few times. 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 - Social history:: Smoking status: Patient denies any tobacco usage or history of. ROS: 02:35 Constitutional: Negative for fever, chills, and weight loss, Eyes: Negative for injury, austin pain, redness, and discharge, ENT: Negative for injury, pain, and discharge, Neck: Negative for injury, pain, and swelling, Cardiovascular: Negative for chest pain, palpitations, and edema, Abdomen/GI: Negative for abdominal pain, nausea, vomiting, diarrhea, and constipation, Back: Negative for injury and pain, : Negative for injury, bleeding, discharge, and swelling, MS/Extremity: Negative for injury and deformity, Skin: Negative for injury, rash, and discoloration, Neuro: Negative for headache, weakness, numbness, tingling, and seizure, Psych: Negative for depression, anxiety, suicide ideation, homicidal ideation, and hallucinations, Allergy/Immunology: Negative for hives, rash, and allergies, Endocrine: Negative for neck swelling, polydipsia, polyuria, polyphagia, and marked weight changes, Hematologic/Lymphatic: Negative for swollen nodes, abnormal bleeding, and unusual bruising. 02:35 Respiratory: Positive for cough, with green sputum. Exam: 02:35 Constitutional: This is a well developed, well nourished patient who is awake, alert, austin and in no acute distress. Head/Face: Normocephalic, atraumatic. Eyes: Pupils equal round and reactive to light, extra-ocular motions intact. Lids and lashes normal. Conjunctiva and sclera are non-icteric and not injected. Cornea within normal limits. Periorbital areas with no swelling, redness, or edema. ENT: Nares patent. No nasal discharge, no septal abnormalities noted. Tympanic membranes are normal and external auditory canals are clear. Oropharynx with no redness, swelling, or masses, exudates, or evidence of obstruction, uvula midline. Mucous membranes moist. Neck: Trachea midline, no thyromegaly or masses palpated, and no cervical lymphadenopathy. Supple, full range of motion without nuchal rigidity, or vertebral point tenderness. No Meningismus. Chest/axilla: Normal chest wall appearance and motion. Nontender with no deformity. No lesions are appreciated. Cardiovascular: Regular rate and rhythm with a normal S1 and S2. No gallops, murmurs, or rubs. Normal PMI, no JVD. No pulse deficits. Respiratory: Lungs have equal breath sounds bilaterally, clear to auscultation and percussion. No rales, rhonchi or wheezes noted. No increased work of breathing, no retractions or nasal flaring. Abdomen/GI: Soft, non-tender, with normal bowel sounds. No distension or tympany. No guarding or rebound. No evidence of tenderness throughout. Back: No spinal tenderness. No costovertebral tenderness. Full range of motion. Skin: Warm, dry with normal turgor. Normal color with no rashes, no lesions, and no evidence of cellulitis. MS/ Extremity: Pulses equal, no cyanosis. Neurovascular intact. Full, normal range of motion. Neuro: Awake and alert, GCS 15, oriented to person, place, time, and situation. Cranial nerves II-XII grossly intact. Motor strength 5/5 in all extremities. Sensory grossly intact. Cerebellar exam normal. Normal gait. 02:35 Musculoskeletal/extremity: DVT Exam: No signs of deep vein thrombosis. no pain, no swelling, no tenderness, negative Homans' sign noted on exam, no appreciated bluish discoloration, no erythema, no increased warmth. Vital Signs: 01:47 BP 122 / 66; Pulse 93; Resp 18; Temp 98.8; Pulse Ox 97% ; Weight 88 kg; Height 5 ft. 6 tw5 in. (167.64 cm); Pain 8/10; 01:47 Body Mass Index 31.31 (88.00 kg, 167.64 cm) tw5 MDM: 02:24 Patient medically screened. austin 02:38 Differential Diagnosis: Bronchitis Influenza Upper Respiratory Infection Sinusitis austin Pharyngitis Otitis Media. Data reviewed: vital signs, nurses notes, lab test result(s), Flu:. Data interpreted: youth nutritional monitor: rate is 93 beats/min, rhythm is regular, Pulse oximetry: on room air is 97 %. Test interpretation: by ED physician or midlevel provider:. Counseling: I had a detailed discussion with the patient and/or guardian regarding: the historical points, exam findings, and any diagnostic results supporting the discharge/admit diagnosis, lab results, radiology results. 10/06 01:52 Order name: Strep [facility] 10/06 01:52 Order name: COVID-19 SARS RT PCR (Document "Date of Onset" if Symptomatic) [facility] 10/06 02:51 Order name: Throat Culture [facility] 10/06 03:21 Order name: FHT's; Complete Time: 03:37 austin Administered Medications: 02:50 Drug: Augmentin (Amoxicillin-Clavulanate) 875 mg Route: PO; ke1 03:36 Follow up: Response: No adverse reaction ke1 Disposition Summary: 10/06/21 02:40 Discharge Ordered Location: Home austin Problem: new austin Symptoms: have improved austin Condition: Stable austin Diagnosis - Bronchitis, not specified as acute or chronic austin - Cough austin - 28 weeks gestation of austin Followup: austin - With: Private Physician - When: 2 - 3 days - Reason: Recheck today's complaints, Continuance of care, Re-evaluation by your physician Discharge Instructions: - Discharge Summary Sheet austin - Acute Bronchitis, Adult austin - Upper Respiratory Infection, Adult austin - Cool Mist Vaporizer austin - Cough, Adult, [id number] austin - Cough, Adult austin Forms: - Medication Reconciliation Form austin - Thank You Letter austin - Antibiotic Education austin - Prescription Opioid Use [facility] Prescriptions: - Augmentin 875-125 mg Oral Tablet - take 1 tablet by ORAL route every 12 hours for 7 days; 14 tablet; Refills: 0, [facility] Product Selection Permitted - Benadryl 25 mg Oral Capsule - take 2 capsule by ORAL route every 6 hours As needed; 30 tablet; Refills: 0, [facility] Product Selection Permitted Signatures: Dispatcher [employer] Wes Stroud MD MD cha Wood, Tiffany tw5 Shai Lobo RN RN ke1 Corrections: (The following items were deleted from the chart) 01:50 01:49 Home Meds: None; tw5
[2021-10-06] MEDS ORDERED: AMOX/K CLAV 875 MG TAB ONE (02:55)
[2021-10-06 03:53] VITALS: BP 122/66; TEMP 98.8; O2SAT 97
== END 2021-10-06 03:37 | disposition home or self-care (01) ==
LOC: ER 01:13
DX: O99.513 Diseases of the respiratory system complicating pregnancy, third trimester (principal); J40 Bronchitis, not specified as acute or chronic; Z3A.28 28 weeks gestation of pregnancy; Z20.822 Contact with and (suspected) exposure to COVID-19
CPT/HCPCS: 87070; 87081; 99284; U0003

== ENCOUNTER 2022-06-13 12:42 | Emergency (ER) | payer OTHER ==
--- OUTSIDE RECORDS SUMMARY | 2022-06-13 12:48 | XMS REPORT | Continuity of Care Document ---
:1990 Author Organization [facility] t Address [address] [facility] [address] [place] [address] Care Team Providers Name Role Phone MIRA MARCANO Primary Care Physician Unavailable JOHAN CHAKRABORTY Attending Clinician Unavailable JOHAN CHAKRABORTY Attending Clinician Unavailable CHAUNCEY JANE Attending Clinician Unavailable Chauncey Talamantes Attending Clinician Unknown, Attending Attending Clinician Unavailable Doctor Unassigned, [place] Attending Clinician Unavailable TANYA OTT Attending Clinician Unavailable CELY JOHNSON Attending Clinician Unavailable Ashtyn Cobb MD Attending Clinician Ilene Womack RN Attending Clinician Unavailable Lane Magana DO Attending Clinician JOHAN CHAKRABORTY M.D. Attending Clinician Unavailable Mira Tello Attending Clinician [phone] JOHAN CHAKRABORTY Admitting Clinician Unavailable Payers Payer Name Policy Type Policy Number Effective Date Expiration Date S [facility] [employer] [id number] 2016 00:00:00 [employer] [id number] 2022 00:00:00 Problems Condition Condition Condition Status Onset Resolution Last Treating Co mments Source Name Details Category Date Date Treatment Clinician Date Previous Previous Disease Active [facility] 4-12 Health section section 00:00: 00 Encounter Encounter Disease Active UT for for 2-15 Health supervisio supervisio 00:00: n of n of 00 normal normal , , antepartum antepartum History of History of Disease Active 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 00:00: 00 BV BV Disease Active Univers (bacterial (bacterial 2-05 it y of vaginosis[place] Other Other Disease Active [facility] general general 2-04 ity of counseling counseling [place] and advice and advice 00 Me dical for for Branch contracept contracept candie candie management management Cervical Cervical Disease Active Overview: Un yesenia Papanicola Papanicola 1-08 Formattin ity of ou smear ou smear 00:00: g of this [place] as negative negative 00 note Medica l within within might be Branch last 12 last 12 different months months from the original. 08/2016, NIL pap UTI in UTI in Disease Active 2018-04 Overview: Univer s 2-23 Formattin i ty of 00:00: g of this [place] 00 note Medical might be Branch different from the original. KIMBERLY at next visit Multiparit Multiparit Disease Active 2018-04 U nivers y y 2-19 ity of 00:00: [place] 00 Medical Branch History of History of Disease Active 2018-04 Overview : Univers 2-19 Formattin ity of section section 00:00: g of this [place] note Medical might be Branch different from the original. Due to breech position, Primary low c section in 2017 see scanned records Nausea and Nausea and Disease Active 2018-04 U nivers vomiting vomiting 2-19 ity of in in 00:00: [place] 00 Medi acosta Branch Supervisio Supervisio Disease Active U nivers n of high n of high 4-11 ity of risk risk 00:00: [place] , , 00 Me dical antepartum antepartum Br anch Genital Genital Disease Active Overview: Univ ers herpes herpes 07-15 Formattin ity of affecting affecting 00:00: g of this [place] 00 note Medi acosta might be Branch different from the original. Suppressi on at 36 weeks Ulcerative Ulcerative Disease Active U nivers colitis colitis 07-15 ity of without without 00:00: [place] complicati complicati 00 Me dical ons ons Branch History of History of Problem Active U T herpes herpes Physici genitalis genitalis ans Supervisio Supervisio Problem Active U T n of n of Physici normal normal ans Encounter Encounter Problem Active UT for for Physici confirmati confirmati an s on of on of test test result result with with physical physical examinatio examinatio n n Scoliosis Scoliosis Problem Active UT Physici ans Nausea Nausea Problem Active UT Physici ans UTI UTI Problem Active UT (urinary (urinary Physic i tract tract ans infection) infection) Ulcerative Ulcerative Problem Active U T colitis colitis Physici ans Anemia Anemia Problem Active UT Physici ans Need for Need for Problem Active UT influenza influenza Phys ici vaccinatio vaccinatio an s n n Genital Genital Problem Active UT herpes herpes Physici ans Encounter Encounter Problem Active UT for for Physici an s visit visit Breech Breech Problem Active UT presentati presentati Ph ysici on, fetus on, fetus ans 1 1 Screen for Screen for Problem Active U T STD STD Physici (sexually (sexually ans transmitte transmitte d disease) d disease) Well woman Well woman Problem Active U T exam exam Physici ans General General Problem Active UT counseling counseling Ph ysici and advice and advice an s for for contracept contracept candie candie management management Vitamin D Vitamin D Problem Active UT deficiency deficiency Ph ysici ans BV BV Problem Active UT (bacterial (bacterial Ph ysici vaginosis) vaginosis) an s Irregular Irregular Problem Active UT menses menses Physici ans Problem Active UT test test Physici negative negative ans Allergies, Adverse Reactions, Alerts Allergy Allergy Status Severity Reaction(s) Onset Inactive Treating Comm ents Source Name Type Date Date Clinician Aspirin Propensi Active GI Bleeding Due to Me thodi ty to 08-[address] adverse 00:00: e colitis [facility] a reaction 00 l s to drug ASPIRIN DRUG Active High Swelling Univers INGREDI 4-11 ity of 00:00: [place] 00 Medical Branch Aspirin Allergy Active Swelling Due to UT to 07-15 ulcerativ Health substanc 00:00: e colitis e 00 Aspirin Propensi Active Swelling Unive rs ty to 07-15 ity of adverse 00:00: [place] reaction 00 Medical s Branch aspirin Allergy Active UT to drug Physici (finding ans ) aspirin [facility] aspirin Drug Active [facility] aspirin Drug Active [facility] aspirin Drug Active [facility] aspirin Drug Active [facility] aspirin Drug Active [facility] aspirin Drug Active [facility] aspirin Drug Active [facility] aspirin Drug Active [facility] aspirin Drug Active [facility] Social History Social Habit Start Date Stop Date Quantity Comments Source [facility] Std Drinks History [facility] Health Alcohol Comment Exposure to 2021-11-12 2021-11-22 Not sure [facility] SARS-CoV-2 00:00:00 09:09:00 (event) Tobacco use and 2021-04-26 2021-04-26 Smokeless tobacco [facility] exposure 00:00:00 00:00:00 non-user History SDMN 2021-04-26 2021-04-26 1 [facility] Alcohol Frequency 00:00:00 00:00:00 History SDMN 2021-04-26 2021-04-26 1 [facility] Alcohol Binge 00:00:00 00:00:00 Alcohol intake 2017-09-04 2017-09-04 Current [facility] 00:00:00 00:00:00 non-drinker of Hospital alcohol (finding) Sex Assigned At [birth year] [facility] 00:00:00 00:00:00 [facility] Smoking Status Start Date Stop Date Source Never smoked tobacco [facility] Medications Ordered Filled Start Stop Current Ordering Indication Dosage Frequency Signature Comments Components Source Medication Medication Date Date Medication? Clinician (SIG) Name Name mabel 2021-04- No [id number] 2[drp] Place 2 Univers in HCl 0.3 04-21 11-24 Drops in ity of % opthalmic 00:00: 05:59 right eye [place] drops 00 :00 every 4 Medical (four) Branch hours for 7 days. ciprofloxac 2021-04- No [id number] 2[drp] Place 2 Univers in HCl 0.3 1-16 11-24 Drops in ity of % opthalmic 00:00: 05:59 right eye [place] drops 00 :00 every 4 Medical (four) Branch hours for 7 days. docusate 2021- No [id number] 100mg Q.5D Take 1 UT sodium 11-11- capsule Health (Colace) 00:00: 04:59 (100 mg 100 MG 00 :00 total) by capsule mouth 2 (two) times a day if needed for constipati on. ibuprofen 2021- No [id number] 600mg Q6H Take 1.5 UT 400 MG 11-11 08- tablets Health tablet 00:00: 04:59 (600 mg 00 :00 total) by mouth every 6 (six) hours for 14 days. metoclopram 2021- No 10mg Q.25D Take 10 mg UT vitaliy 10-10- by mouth 4 Health (Reglan) 10 10:31: 00:00 (four) MG tablet 17 :00 times a day. Prenat-Fe Yes [id number] One tab UT Poly-Methfo 7-07 daily Health l-FA-DHA 00:00: (Vitafol 00 Ultra) 29-0.6-0.4- 200 MG capsule Prenat-Fe Yes [id number] One tab UT Poly-Methfo 7-07 daily Health l-FA-DHA 00:00: (Vitafol 00 Ultra) 29-0.6-0.4- 200 MG capsule Prenat-Fe 0 Yes [id number] One tab UT Poly-Methfo 7-07 daily Health l-FA-DHA 00:00: (Vitafol 00 Ultra) 29-0.6-0.4- 200 MG capsule Prenat-Fe Yes [id number] One tab UT Poly-Methfo 7-07 daily Health l-FA-DHA 00:00: (Vitafol 00 Ultra) 29-0.6-0.4- 200 MG capsule Prenat-Fe Yes [id number] One tab UT Poly-Methfo -07 daily Health l-FA-DHA 00:00: (Vitafol 00 Ultra) 29-0.6-0.4- 200 MG capsule Prenat-Fe Yes [id number] One tab UT Poly-Methfo -07 daily Health l-FA-DHA 00:00: (Vitafol 00 Ultra) 29-0.6-0.4- 200 MG capsule Prenat-Fe Yes [id number] One tab UT Poly-Methfo 10-10 daily Health l-FA-DHA 00:00: (Vitafol 00 Ultra) 29-0.6-0.4- 200 MG capsule valACYclovi 2022- No [id number] 500mg QD Take 1 UT r (Valtrex) 09-10 tablet Healt h 500 MG 00:00: 04:59 (500 mg tablet 00 :00 total) by mouth 1 (one) time each day. valACYclovi 2022- No [id number] 500mg QD Take 1 UT r (Valtrex) 09-10 tablet Healt h 500 MG 00:00: 04:59 (500 mg tablet 00 :00 total) by mouth 1 (one) time each day. valACYclovi 2022- No [id number] 500mg QD Take 1 UT r (Valtrex) 09-10 tablet Healt h 500 MG 00:00: 04:59 (500 mg tablet 00 :00 total) by mouth 1 (one) time each day. valACYclovi 2022- No [id number] 500mg QD Take 1 UT r (Valtrex) 09-10 tablet Healt h 500 MG 00:00: 04:59 (500 mg tablet 00 :00 total) by mouth 1 (one) time each day. valACYclovi 2022- No [id number] 500mg QD Take 1 UT r (Valtrex) 09-10 tablet Healt h 500 MG 00:00: 04:59 (500 mg tablet 00 :00 total) by mouth 1 (one) time each day. valACYclovi 2022- No [id number] 500mg QD Take 1 UT r (Valtrex) 09-10 tablet Healt h 500 MG 00:00: 04:59 (500 mg tablet 00 :00 total) by mouth 1 (one) time each day. valACYclovi 2022- No [id number] 500mg QD Take 1 UT r (Valtrex) 09-10 tablet Healt h 500 MG 00:00: 04:59 (500 mg tablet 00 :00 total) by mouth 1 (one) time each day. valACYclovi 2022- No [id number] 500mg QD Take 1 UT r (Valtrex) 09-10 tablet Healt h 500 MG 00:00: 04:59 (500 mg tablet 00 :00 total) by mouth 1 (one) time each day. valACYclovi 2022- No [id number] 500mg QD Take 1 UT r (Valtrex) 09-10 tablet Healt h 500 MG 00:00: 04:59 (500 mg tablet 00 :00 total) by mouth 1 (one) time each day. Ferric 2022-0 Yes [id number] 1{tbl} Q.5D Take 1 UT Maltol 5-12 tablet by [facility] ([place]) 00:00: mouth 2 30 MG 00 (two) capsule times a day. Take 1 hour before eating or 2 hours after eating Ferric 2022-0 Yes [id number] 1{tbl} Q.5D Take 1 UT Maltol 5-12 tablet by [facility] ([place]) 00:00: mouth 2 30 MG 00 (two) capsule times a day. Take 1 hour before eating or 2 hours after eating Ferric 2022-0 Yes [id number] 1{tbl} Q.5D Take 1 UT Maltol 5-12 tablet by [facility] ([place]) 00:00: mouth 2 30 MG 00 (two) capsule times a day. Take 1 hour before eating or 2 hours after eating Ferric 2022-0 Yes [id number] 1{tbl} Q.5D Take 1 UT Maltol 5-12 tablet by [facility] ([place]) 00:00: mouth 2 30 MG 00 (two) capsule times a day. Take 1 hour before eating or 2 hours after eating Ferric 2022-0 Yes [id number] 1{tbl} Q.5D Take 1 UT Maltol 5-12 tablet by [facility] ([place]) 00:00: mouth 2 30 MG 00 (two) capsule times a day. Take 1 hour before eating or 2 hours after eating Ferric 2022-0 Yes [id number] 1{tbl} Q.5D Take 1 UT Maltol 5-12 tablet by [facility] ([employer]) 00:00: mouth 2 30 MG 00 (two) capsule times a day. Take 1 hour before eating or 2 hours after eating Ferric 2022-0 Yes [id number] 1{tbl} Q.5D Take 1 UT Maltol 5-12 tablet by [facility] ([facility] [employer]) 00:00: mouth 2 30 MG 00 (two) capsule times a day. Take 1 hour before eating or 2 hours after eating Ferric 2022-0 Yes [id number] 1{tbl} Q.5D Take 1 UT Maltol 5-12 tablet by [facility] ([place]) 00:00: mouth 2 30 MG 00 (two) capsule times a day. Take 1 hour before eating or 2 hours after eating Ferric 2022-0 Yes [id number] 1{tbl} Q.5D Take 1 UT Maltol 5-12 tablet by [facility] ([place]) 00:00: mouth 2 30 MG 00 (two) capsule times a day. Take 1 hour before eating or 2 hours after eating metoclopram 2022-0 Yes 10mg Q.25D Take 10 mg UT vitaliy 5-10 by mouth 4 [facility] (Reglan) 10 11:00: (four) MG tablet 10 times a day. metoclopram 2022-0 Yes 10mg Q.25D Take 10 mg UT vitaliy 5-10 by mouth 4 [facility] (Reglan) 10 11:00: (four) MG tablet 10 times a day. aspirin 81 2020-04- No [id number] 81mg QD Chew 1 UT MG chewable 2-23 12-24 tablet (81 H ealth tablet 00:00: 05:59 mg total) 00 :00 1 (one) time each day. aspirin 81 2020-04- No [id number] 81mg QD Chew 1 UT MG chewable 2-23 12-24 tablet (81 H ealth tablet 00:00: 05:59 mg total) 00 :00 1 (one) time each day. aspirin 81 2020-04- No [id number] 81mg QD Chew 1 UT MG chewable 2-23 07-07 tablet (81 H ealth tablet 00:00: 00:00 mg total) 00 :00 1 (one) time each day. Prenat-Fe 2020-04 Yes [id number] One tab UT Poly-Methfo 05-13 daily Health l-FA-DHA 00:00: (Vitafol 00 Ultra) 29-0.6-0.4- 200 MG capsule Prenat-Fe 2020-04 Yes [id number] One tab UT Poly-Methfo 05-13 daily Health l-FA-DHA 00:00: (Vitafol 00 Ultra) 29-0.6-0.4- 200 MG capsule Prenat-Fe 2020-04 202- No [id number] One tab UT Poly-Methfo 05-13 daily Health l-FA-DHA 00:00: 00:00 (Vitafol 00 :00 Ultra) 29-0.6-0.4- 200 MG capsule meclizine Yes TAKE 1 UT (Antivert) 7- TABLET BY [facility] 25 MG 00:00: MOUTH tablet 00 THREE TIMES A DAY NEEDED FOR DIZZINESS meclizine Yes TAKE 1 UT (Antivert) - TABLET BY [facility] 25 MG 00:00: MOUTH tablet 00 THREE TIMES A DAY NEEDED FOR DIZZINESS meclizine 2021- No TAKE 1 UT (Antivert) 10-24 TABLET BY [facility] 25 MG 00:00: 00:00 MOUTH tablet 00 :00 THREE TIMES A DAY NEEDED FOR DIZZINESS valACYclovi valACYclovi 2019-04 Yes AZEEMA 1 QD TAKE 1 UT r HCl - 500 r HCl - 500 1-06 MOOSA MMarvin TABLET Physici MG Oral MG Oral 00:00: DAILY. ans Tablet Tablet 00 metroNIDAZO 2019-0 Yes [id number] 500mg Take 1 Univers LE (FLAGYL) 2-05 tablet by ity of 500 mg 00:00: mouth 2 [place] tablet 00 (two) Medical times Branch daily. metroNIDAZO 2020-0 Yes [id number] 500mg Take 1 Univers LE (FLAGYL) 2-05 tablet by ity of 500 mg 00:00: mouth 2 [place] tablet 00 (two) Medical times Branch daily. metroNIDAZO 0 Yes [id number] 500mg Take 1 Univers LE (FLAGYL) 2-05 tablet by ity of 500 mg 00:00: mouth 2 [place] tablet 00 (two) Medical times Branch daily. mesalamine 2018-04 Yes 1200mg Take 1,200 Univers (LIALDA) 2-19 mg by ity of 1.2 gram EC 10:37: mouth [place] tablet 35 daily with Medical breakfast. Branch mesalamine 2018-04 Yes 1200mg Take 1,200 Univers (LIALDA) 2-19 mg by ity of 1.2 gram EC 10:37: mouth [place] tablet 35 daily with Medical breakfast. Branch mesalamine 2018-04 Yes 1200mg Take 1,200 Univers (LIALDA) 2-19 mg by ity of 1.2 gram EC 10:37: mouth [place] tablet 35 daily with Medical breakfast. Branch proMETHazin 2018-04 Yes [id number] 25mg Take 1 Univers e 25 mg 2-19 tablet by ity of tablet 00:00: mouth [place] 00 every 4 Medical (four) Branch hours as needed for Nausea and Vomiting (N/V). proMETHazin 2018-04 Yes [id number] 25mg Take 1 Univers e 25 mg 2-19 tablet by ity of tablet 00:00: mouth [place] 00 every 4 Medical (four) Branch hours as needed for Nausea and Vomiting (N/V). proMETHazin 2018-04 Yes [id number] 25mg Take 1 Univers e 25 mg 2-19 tablet by ity of tablet 00:00: mouth [place] 00 every 4 Medical (four) Branch hours as needed for Nausea and Vomiting (N/V). Vitamin D Vitamin D Yes AZEEMA 1 TAKE 1 UT (Ergocalcif (Ergocalcif 5-10 MOOSA M.D. CAPSULE Physici abigail) 1.25 abigail) 1.25 00:00: WEEKLY ans MG (00943 MG (61631 00 UT) Oral UT) Oral Capsule Capsule PNV Yes 1{tbl} QD Take 1 Methodi comb.[id number] 6-01 tablet by katheryn joe 17:34: mouth Hospi ta l-FA 29 mg 31 daily. l iron- 1 mg tablet per tablet mesalamine Yes 3600mg QD Take 3,600 Methodi (LIALDA) 5-[address] 1.2 gram EC 11:25: mouth Hospi ta tablet 33 daily. l PNV#67-iron 2016- Yes [id number] 1{each} Take 1 Univers ps-FA 4-11 Each by ity of cmb#1-dha 00:00: mouth [place] (VITAFOL 00 daily. Medical ULTRA) 29 Branch mg iron- 1 mg-200 mg Cap PNV#67-iron 2016- Yes [id number] 1{each} Take 1 Univers ps-FA 4-11 Each by ity of cmb#1-dha 00:00: mouth [place] (VITAFOL 00 daily. Medical ULTRA) 29 Branch mg iron- 1 mg-200 mg Cap PNV#67-iron 2016- Yes [id number] 1{each} Take 1 Univers ps-FA 4-11 Each by ity of cmb#1-dha 00:00: mouth [place] (VITAFOL 00 daily. Medical ULTRA) 29 Branch mg iron- 1 mg-200 mg Cap Immunizations Ordered Immunization Filled Immunization Date Status Commen ts Source Name Name Tdap 2021-09-10 [facility] 00:00:00 Tdap 2021-09-10 [facility] 00:00:00 Tdap 2021-09-10 Completed [facility] 00:00:00 Tdap 2021-09-10 [facility]pleted [facility] 00:00:00 Tdap 2021-09-10 [facility]pleted [facility] 00:00:00 Tdap 2021-09-10 [facility]pleted [facility] 00:00:00 Tdap 2021-09-10 [facility]pleted [facility] 00:00:00 Tdap 2021-09-10 [facility]pleted [facility] 00:00:00 Tdap 2021-09-10 [facility] 00:00:00 Fluzone Quadrivalent 2017-01-22 Completed [facility] P hysicians 0.5 ML Intramuscular 00:00:00 Suspension Prefilled Syringe Tdap (Adacel) 2017-01-08 Completed [facility] Physicia ns 00:00:00 Rubella 2009-08-12 Completed University of 00:00:00 [facility] Rubella 2009-08-12 Completed University of 00:00:00 [facility] Rubella 2009-08-12 Completed University of 00:00:00 [facility] Influenza Virus 2009-02-26 Completed Universit y of Vaccine Quad IM 00:00:00 [place] Med ical Multi-dose 6+ MO Branch H1n1 Vaccine 2009-02-26 Completed University o f 00:00:00 [facility] Influenza Virus 2009-02-26 Completed Universit y of Vaccine Quad IM 00:00:00 [place] Med ical Multi-dose 6+ MO Branch H1n1 Vaccine 2009-02-26 Completed University o f 00:00:00 [facility] Influenza Virus 2009-02-26 Completed Universit y of Vaccine Quad IM 00:00:00 [place] Med ical Multi-dose 6+ MO Branch H1n1 Vaccine 2009-02-26 Completed University o f 00:00:00 [facility] TDAP 2008-11-22 Completed University of 00:00:00 [facility] Influenza Virus 2008-11-22 Completed Universit y of Vaccine Quad Nasal 00:00:00 [facility] HEPATITIS A 2008-11-22 Completed University of 00:00:00 [facility] HPV Unspecified 2008-11-22 Completed Universit y of 00:00:00 [facility] TDAP 2008-11-22 Completed University of 00:00:00 [facility] Influenza Virus 2008-11-22 Completed Universit y of Vaccine Quad Nasal 00:00:00 [facility] HEPATITIS A 2008-11-22 Completed University of 00:00:00 [facility] HPV Unspecified 2008-11-22 Completed Universit y of 00:00:00 [facility] TDAP 2008-11-22 Completed University of 00:00:00 [facility] Influenza Virus 2008-11-22 Completed Universit y of Vaccine Quad Nasal 00:00:00 [facility] HEPATITIS A 2008-11-22 Completed University of 00:00:00 [facility] HPV Unspecified 2008-11-22 Completed Universit y of 00:00:00 [facility] Td 2007-11-25 Completed University of 00:00:00 [facility] Td 2007-11-25 Completed University of 00:00:00 [facility] Td 2007-11-25 Completed University of 00:00:00 [facility] HEPATITIS A 2006-11-16 Completed University of 00:00:00 [facility] HPV Unspecified 2006-11-16 Completed Universit y of 00:00:00 [facility] HEPATITIS A 2006-11-16 Completed University of 00:00:00 [facility] HPV Unspecified 2006-11-16 Completed Universit y of 00:00:00 [facility] HEPATITIS A 2006-11-16 Completed University of 00:00:00 [facility] HPV Unspecified 2006-11-16 Completed Universit y of 00:00:00 [facility] HPV Unspecified 2005-10-30 Completed Universit y of 00:00:00 [facility] Meningococcal 2005-10-30 Completed University of Vaccine 00:00:00 [facility] HPV Unspecified 2005-10-30 Completed Universit y of 00:00:00 [facility] Meningococcal 2005-10-30 Completed University of Vaccine 00:00:00 [facility] HPV Unspecified 2005-10-30 Completed Universit y of 00:00:00 [facility] Meningococcal 2005-10-30 Completed University of Vaccine 00:00:00 [facility] TDAP 2004-05-21 Completed University of 00:00:00 [facility] TDAP 2004-05-21 Completed University of 00:00:00 [facility] TDAP 2004-05-21 Completed University of 00:00:00 [facility] Polio (IPV/OPV) 1997-01-06 Completed Universit y of 00:00:00 [facility] Proquad 1997-01-06 Completed University of (MMR/VARICELLA) 00:00:00 [facility] Polio (IPV/OPV) 1997-01-06 [facility] (MMR/VARICELLA) 00:00:00 [facility] Polio (IPV/OPV) 1997-01-06 Completed Universit y of 00:00:00 [facility] Proquad 1997-01-06 Completed University of (MMR/VARICELLA) 00:00:00 [facility] Proquad 1994-02-04 Completed University of (MMR/VARICELLA) 00:00:00 [facility] Heamophilus 1994-02-04 Completed University of Influenza B 00:00:00 [facility] DTP 1994-02-04 Completed University of 00:00:00 [facility] Proquad 1994-02-04 Completed University of (MMR/VARICELLA) 00:00:00 [facility] Heamophilus 1994-02-04 Completed University of Influenza B 00:00:00 [facility] DTP 1994-02-04 Completed University of 00:00:00 [facility] Proquad 1994-02-04 Completed University of (MMR/VARICELLA) 00:00:00 [facility] of Influenza B 00:00:00 [facility] DTP 1994-02-04 Completed University of 00:00:00 [facility] Polio (IPV/OPV) 1993-07-30 Completed [facility] Influenza [facility] 00:00[facility]00 [facility] [place] [facility] 1993[facility] 00:00:00 [facility] HEP B, Adult Dosage 1993-07-30 Completed Unive rsity of 00:00:00 [facility] Polio (IPV/OPV) 1993-07-30 Completed [facility] Influenza B 00:00:00 [facility] 1993-07-30 Completed University of 00:00:00 [facility] HEP B, Adult Dosage 1993-07-30 Completed Unive rsity of 00:00:00 [facility] Polio (IPV/OPV) 1993-07-30 Completed [facility] Influ[facility] 00:00[facility]00 [facility] 1993-07-30 Completed [facility] 00:00:00 [facility] HEP B, Adult Dosage 1993-07-30 Completed Unive rsity of 00:00:00 [facility] Polio (IPV/OPV) 1993-05-30 Completed [facility] Influenza B 00:00:00 [facility] Polio (IPV/OPV) 1993-05-30 Completed [facility] Com[facility] Influenza B 00:00:00 [facility] Polio (IPV/OPV) 1993-05-30 Completed [facility] Completed [facility] Influenza B 00:00:00 [facility] Polio (IPV/OPV) 1993-02-04 Completed [facility] Influenza B 00:00:00 [facility] 1993-02-04 Completed [facility] of 00:00:00 [facility] HEP B, Adult Dosage 1993-02-04 Completed Unive rsity of 00:00:00 [facility] Polio (IPV/OPV) 1993-02-04 Completed [facility] 00:00:00 [facility] Heamophilus 1993-02-04 Completed University of Influenza B 00:00:00 [facility] DTP 1993-02-04 Completed University of 00:00:00 [facility] HEP B, Adult Dosage 1993-02-04 Completed Unive rsity of 00:00:00 [facility] Polio (IPV/OPV) 1993-02-04 Completed [facility] 00:00:00 [facility] Heamophilus 1993-02-04 Completed [facility] Influenza B 00:00:00 [facility] 1993-02-04 Completed [facility] of 00:00:00 [facility] HEP B, Adult Dosage 1993-02-04 Completed Unive rsity of 00:00:00 [facility] HEP B, Adult Dosage 1992 Completed Unive rsity of 00:00:00 [facility] HEP B, Adult Dosage 1992 Completed Unive rsity of 00:00:00 [facility] HEP B, Adult Dosage 1992 Completed Unive rsity of 00:00:00 [facility] Vital Signs Vital Name Observation Time Observation Value Comments Source Diastolic blood 2022-02-19 78 mm[Hg] [place] o f pressure 21:22:00 [facility] Heart rate 2022-02-19 79 /min [facility] ::00 [facility] Body temperature 2022-02-19 37.17 Catherine [place] of 21:22:00 [facility] Respiratory rate 2022-02-19 18 /min [place] of 21:22:00 [facility] Body height 2022-02-19 165.1 cm [place] of 21:22:00 [facility] Body weight 2022-02-19 78.835 kg [place] of 21:22:00 [facility] BMI 2022-02-19 28.92 kg/m2 [place] of 21:22:00 [facility] Oxygen saturation 2022-02-19 99 /min [facility] in Arterial blood 21:22:00 [facility] by Pulse oximetry Branch Systolic blood 2022-02-19 117 mm[Hg] University of pressure 21:22:00 [facility] Systolic blood 2021-11-22 124 mm[Hg] [facility] pressure 14:14:00 Diastolic blood 2021-11-22 76 mm[Hg] [facility] pressure 14:14:00 Heart rate 2021-11-22 57 /min [facility] 14:14:00 Body temperature 2021-11-22 34.61 Catherine [facility] 14:14:00 Body weight 2021-11-22 81.103 kg [facility] 14:14:00 BMI 2021-11-22 28.86 kg/m2 [facility] 14:14:00 Systolic blood 2021-11-06 116 mm[Hg] [facility] pressure 18:47:00 Diastolic blood 2021-11-06 67 mm[Hg] [facility] pressure 18:47:00 Heart rate 2021-11-06 80 /min [facility] 18:47:00 Body temperature 2021-11-06 36.22 Catherine [facility] 18:47:00 Body weight 2021-11-06 91.173 kg [facility] 18:47:00 BMI 2021-11-06 32.44 kg/m2 [facility] 18:47:00 Systolic blood 2021-10-31 127 mm[Hg] [facility] pressure 15:38:00 Diastolic blood 2021-10-31 73 mm[Hg] [facility] pressure 15:38:00 Heart rate 2021-10-31 89 /min [facility] 15:38:00 Body temperature 2021-10-31 36.5 Catherine [facility] 15:38:00 Body weight 2021-10-31 90.266 kg [facility] 15:38:00 BMI 2021-10-31 32.12 kg/m2 [facility] 15:38:00 Systolic blood 2021-10-24 117 mm[Hg] [facility] pressure 17:10:00 Diastolic blood 2021-10-24 75 mm[Hg] [facility] pressure 17:10:00 Heart rate 2021-10-24 97 /min [facility] 17:10:00 Body temperature 2021-10-24 36.67 Catherine [facility] 17:10:00 Body weight 2021-10-24 90.266 kg [facility] 17:10:00 BMI 2021-10-24 32.12 kg/m2 [facility] 17:10:00 Systolic blood 2021-10-10 105 mm[Hg] [facility] pressure 15:22:00 Diastolic blood 2021-10-10 72 mm[Hg] [facility] pressure 15:22:00 Heart rate 2021-10-10 97 /min [facility] 15:22:00 Body temperature 2021-10-10 36.28 Catherine [facility] 15:22:00 Body weight 2021-10-10 89.359 kg [facility] 15:22:00 BMI 2021-10-10 31.80 kg/m2 [facility] 15:22:00 Systolic blood 2021-09-26 114 mm[Hg] [facility] pressure 16:34:00 Diastolic blood 2021-09-26 81 mm[Hg] [facility] pressure 16:34:00 Heart rate 2021-09-26 71 /min [facility] 16:34:00 Body temperature 2021-09-26 36.5 [facility] 16:34:00 Body weight 2021-09-26 87.998 kg [facility] 16:34:00 BMI 2021-09-26 31.31 kg/m2 [facility] 16:34:00 Height/Length 2021-04-23 167.6 cm Measured 08:28:16 Weight [...] 08:26:48 Systolic blood 2020-04-11 145 mm[Hg] [facility]; [facility] 15:02:00 Position: Sitting Diastolic blood 2020-04-11 82 mm[Hg] [place] [facility] [facility] pressure 15:02:00 Position: Sitting Body height 2020-04-11 66 [in_us] [facility] 15:02:00 Weight 2020-04-11 180.375 [lb_av] [facility] 15:02:00 Body mass index 2020-04-11 29.11 kg/m2 [facility] (BMI) [Ratio] 15:02:00 Body temperature 2020-04-11 97.5 [degF] Method: [facility] 15:02:00 Temporal Heart Rate 2020-04-11 88 /min [facility] 15:02:00 Systolic blood 2020-02-10 103 mm[Hg] [facility]: LUE; [facility] pressure 09:17:00 Position: Sitting Diastolic blood 2020-02-10 71 mm[Hg] [facility]; [facility] 09:17:00 Position: Sitting Body height 2020-02-10 66 [in_us] [facility] 09:17:00 Weight 2020-02-10 175 [lb_av] [facility] 09:17:00 Body mass index 2020-02-10 28.25 kg/m2 [facility] (BMI) [Ratio] 09:17:00 Heart Rate 2020-02-10 88 /min [facility] 09:17:00 Body temperature 2020-02-10 97.5 [degF] Method: [facility] 09:17:00 Temporal Systolic blood 2019-11-18 123 mm[Hg] [facility]: [facility]; [facility] pressure 09:50:00 Position: Sitting Diastolic blood 2019-11-18 73 mm[Hg] [facility]: [facility]; [facility] 09:50:00 Position: Sitting Body height 2019-11-18 66 [in_us] [facility] 09:50:00 Weight 2019-11-18 171 [lb_av] [facility] 09:50:00 Body mass index 2019-11-18 27.6 kg/m2 [facility] (BMI) [Ratio] 09:50:00 Body temperature 2019-11-18 98.2 [degF] [facility] 09:50:00 Heart Rate 2019-11-18 67 /min [facility] 09:50:00 BP Systolic 2018-08-05 116 mm[Hg] Location: L[facility]; [facility] 09:10:00 Position: Sitting BP Diastolic 2018-08-05 71 mm[Hg] [facility]: L[facility]; [facility] 09:10:00 Position: Sitting Height 2018-08-05 66 [in_us] [facility] 09:10:00 Weight 2018-08-05 160 [lb_av] [facility] 09:10:00 Body Mass Index 2018-08-05 25.82 kg/m2 [facility] Calculated 09:10:00 Heart Rate 2018-08-05 76 /min [facility] 09:10:00 BP Systolic 2017-08-04 132 mm[Hg] Location: LUE; [facility] 15:15:00 Position: Sitting BP Diastolic 2017-08-04 75 mm[Hg] [facility]: L[facility]; [facility] 15:15:00 Position: Sitting Height 2017-08-04 66 [in_us] [facility] 15:15:00 Weight 2017-08-04 166 [lb_av] [facility] 15:15:00 Body Mass Index 2017-08-04 26.79 kg/m2 [facility] Calculated 15:15:00 Heart Rate 2017-08-04 82 /min [facility] 15:15:00 BP Systolic 2017-05-01 135 mm[Hg] [facility]; [facility] 10:08:00 Position: Sitting BP Diastolic 2017-05-01 60 mm[Hg] [facility]: [facility]; [facility] 10:08:00 Position: Sitting Height 2017-05-01 66 [in_us] [facility] 10:08:00 Weight 2017-05-01 164 [lb_av] [facility] 10:08:00 Body Mass Index 2017-05-01 26.47 kg/m2 [facility] Calculated 10:08:00 Heart Rate 2017-05-01 84 /min [facility] 10:08:00 BP Systolic 2017-04-02 123 mm[Hg] Location: LUE; [facility] 13:16:00 Position: Sitting BP Diastolic 2017-04-02 76 mm[Hg] [facility]; [facility] 13:16:00 Position: Sitting Height 2017-04-02 66 [in_us] [facility] 13:16:00 Weight 2017-04-02 168 [lb_av] [facility] 13:16:00 Body Mass Index 2017-04-02 27.12 kg/m2 [facility] Calculated 13:16:00 Heart Rate 2017-04-02 76 /min [facility] 13:16:00 BP Systolic 2017-03-12 126 mm[Hg] Location: LUE; [facility] 09:34:00 Position: Sitting BP Diastolic 2017-03-12 74 mm[Hg] Location: [facility]; [facility] 09:34:00 Position: Sitting Height 2017-03-12 66 [in_us] [facility] 09:34:00 Weight 2017-03-12 189 [lb_av] [facility] 09:34:00 Body Mass Index 2017-03-12 30.51 kg/m2 [facility] Calculated 09:34:00 Heart Rate 2017-03-12 90 /min [facility] 09:34:00 BP Systolic 2017-03-05 118 mm[Hg] [facility]: [facility]; [facility] 09:12:00 Position: Sitting BP Diastolic 2017-03-05 70 mm[Hg] [facility]: [facility]; [facility] 09:12:00 Position: Sitting Height 2017-03-05 66 [in_us] [facility] 09:12:00 Weight 2017-03-05 189 [lb_av] [facility] 09:12:00 Body Mass Index 2017-03-05 30.51 kg/m2 [facility] Calculated 09:12:00 BP Systolic 2017-02-25 125 mm[Hg] Location: [facility]; [facility] 09:01:00 Position: Sitting BP Diastolic 2017-02-25 74 mm[Hg] [facility]: [facility]; [facility] 09:01:00 Position: Sitting Height 2017-02-25 66 [in_us] [facility] 09:01:00 Weight 2017-02-25 186 [lb_av] [facility] 09:01:00 Body Mass Index 2017-02-25 30.02 kg/m2 [facility] Calculated 09:01:00 Heart Rate 2017-02-25 89 /min [facility] 09:01:00 BP Systolic 2017-02-20 114 mm[Hg] Location: [facility]; [facility] 15:37:00 Position: Sitting BP Diastolic 2017-02-20 70 mm[Hg] [facility]: [facility]; [facility] 15:37:00 Position: Sitting Height 2017-02-20 66 [in_us] [facility] 15:37:00 Weight 2017-02-20 187 [lb_av] [facility] 15:37:00 Body Mass Index 2017-02-20 30.18 kg/m2 [facility] Calculated 15:37:00 Heart Rate 2017-02-20 82 /min [facility] 15:37:00 BP Systolic 2017-02-19 106 mm[Hg] Location: [facility]; [facility] 10:39:00 Position: Sitting BP Diastolic 2017-02-19 73 mm[Hg] Location: [facility]; [facility] 10:39:00 Position: Sitting Height 2017-02-19 66 [in_us] [facility] 10:39:00 Heart Rate 2017-02-19 93 /min [facility] 10:39:00 Weight 2017-02-19 188 [lb_av] [facility] 10:39:00 Body Mass Index 2017-02-19 30.34 kg/m2 [facility] Calculated 10:39:00 BP Systolic 2017-02-19 106 mm[Hg] Location: LUE; [facility] 10:30:00 Position: Sitting BP Diastolic 2017-02-19 73 mm[Hg] Location: [facility]; [facility] 10:30:00 Position: Sitting Height 2017-02-19 66 [in_us] [facility] 10:30:00 Heart Rate 2017-02-19 93 /min [facility] 10:30:00 BP Systolic 2017-02-05 102 mm[Hg] Location: LUE; [facility] 10:15:00 Position: Sitting BP Diastolic 2017-02-05 60 mm[Hg] Location: [facility]; [facility] 10:15:00 Position: Sitting Height 2017-02-05 66 [in_us] [facility] 10:15:00 Weight 2017-02-05 186 [lb_av] [facility] 10:15:00 Body Mass Index 2017-02-05 30.02 kg/m2 [facility] Calculated 10:15:00 BP Systolic 2017-01-22 106 mm[Hg] Location: L[facility]; [facility] 09:47:00 Position: Sitting BP Diastolic 2017-01-22 61 mm[Hg] Location: [facility]; [facility] 09:47:00 Position: Sitting Height 2017-01-22 66 [in_us] [facility] 09:47:00 Heart Rate 2017-01-22 102 /min [facility] 09:47:00 Weight 2017-01-22 185 [lb_av] [facility] 09:47:00 Body Mass Index 2017-01-22 29.86 kg/m2 [facility] Calculated 09:47:00 Procedures Procedure Date / Time Performing Clinician Source Performed POCT MOLECULAR STREP 2022-02-19 21:28:00 Unknown, Attending [facility] ASSIGNMENT OF BENEFITS 2022-02-19 20:44:32 Doctor Unassigned, No [facility] POCT URINALYSIS 2021-09-26 20:40:00 Tawny Chakrabortyma [facility] DIPSTICK [QL] TSH, 3RD 2020-04-11 00:00:00 [facility] GENERATION [QL] T4, FREE 2020-04-11 00:00:00 [facility] [QL] VITAMIN D, 2020-04-11 00:00:00 [facility] 25-HYDROXY, LC/MS/MS [QL] VITAMIN B12 2020-04-11 00:00:00 [facility] [QL] HCG, TOTAL, QN 2020-03-27 00:00:00 [facility] [Q] CHLAMYDIA/N. 2020-02-10 00:00:00 [facility] GONORRHOEAE RNA, TMA [QL] BV/ VAGINITIS 2020-02-10 00:00:00 [facility] PANEL DNA PROBE AFFIRM [Q] HEPATITIS B SURFACE 2020-02-10 00:00:00 [facility] ANTIGEN W/REFL CONFIRM [Q] HIV-1/2 Antigen and 2020-02-10 00:00:00 [facility] Antibodies, Fourth Generation, with Reflexes [QL] HEPATITIS C 2020-02-10 00:00:00 [facility] ANTIBODY [QL] RPR (DX) W/REFL 2020-02-10 00:00:00 [facility] TITER AND CONFIRMATORY TESTING [L] Comp. Metabolic 2019-11-18 00:00:00 [facility] Panel (13) [QL] CBC (INCLUDES 2019-11-18 00:00:00 [facility] DIFF/PLT) [QL] HEMOGLOBIN A1c 2019-11-18 00:00:00 [facility] [QL] LIPID PANEL 2019-11-18 00:00:00 [facility] [QL] T4, FREE 2019-11-18 00:00:00 [facility] [QL] TSH, 3RD 2019-11-18 00:00:00 [facility] GENERATION [QL] CMP W/EGFR 2019-11-18 00:00:00 [facility] [Q] THINPREP TIS PAP 2019-11-18 00:00:00 [facility] REFLEX HPV mRNA E6/E7 [QL] BV/ VAGINITIS 2019-11-18 00:00:00 [facility] PANEL DNA PROBE AFFIRM [L] Vitamin D, 2018-08-05 00:00:00 [facility] 25-Hydroxy, Total - Esoterix [QLH] CBC (INCLUDES 2018-08-05 00:00:00 [facility] DIFF/PLT) [QLH] CMP W/EGFR 2018-08-05 00:00:00 [facility] [QLH] HEMOGLOBIN A1c 2018-08-05 00:00:00 [facility] [QLH] LIPID PANEL 2018-08-05 00:00:00 [facility] [QLH] T4, FREE 2018-08-05 00:00:00 [facility] [QLH] TSH, 3RD 2018-08-05 00:00:00 [facility] GENERATION [Q] HIV-1/2 Antigen and 2018-08-05 00:00:00 [facility] Antibodies, Fourth Generation, with Reflexes [QH] HEPATITIS B 2018-08-05 00:00:00 [facility] SURFACE ANTIGEN W/REFL CONFIRM [QH] HIV AB, HIV 1/2, 2018-08-05 00:00:00 [facility] EIA, WITH REFLEXES [QLH] HEPATITIS C 2018-08-05 00:00:00 [facility] ANTIBODY [QLH] RPR 2018-08-05 00:00:00 [facility] . [facility] - GC/Chlamydia 2018-08-05 00:00:00 [facility] - Affirm VPIII 2018-08-05 00:00:00 [facility] (BV Panel) [Q] HIV-1/2 Antigen and 2017-02-20 00:00:00 [facility] Antibodies, Fourth Generation, with Reflexes [QH] STREPTOCOCCUS, 2017-02-20 00:00:00 [facility] GROUP B CULTURE (Genital Strep Screen) [QLH] CBC (INCLUDES 2017-02-20 00:00:00 [facility] DIFF/PLT) [QLH] RPR 2017-02-20 00:00:00 [facility] Plan of Care Planned Activity Planned Date Details Comments Source Future Scheduled 2022-03-27 COVID-19 VACCINE [facility] Test 15:03:47 (#1) [code = COVID-19 VACCINE (#1)] Future Scheduled 2022-03-27 Screening for [facility] Test 15:03:47 malignant neoplasm of cervix (procedure) [code = 247884017] Future Scheduled 2022-03-27 INFLUENZA VACCINE [facility] Test 15:03:47 [code = INFLUENZA VACCINE] Diagnostic Test 2020-04-11 [QL] TSH, 3RD [facility] Pending 00:00:00 GENERATION [code = [QL] TSH, 3RD GENERATION] Diagnostic Test 2020-04-11 [QL] T4, FREE [code [facility] Pending 00:00:00 = [QL] T4, FREE] Diagnostic Test 2020-04-11 [QL] VITAMIN D, [facility] Pending 00:00:00 25-HYDROXY, LC/MS/MS [code = [QL] VITAMIN D, 25-HYDROXY, LC/MS/MS] Diagnostic Test 2020-04-11 [QL] VITAMIN B12 [facility] Pending 00:00:00 [code = [QL] VITAMIN B12] Encounters Start End Encounter Admission Attending Care Care Encounter Source Date/Time Date/Time Type Type Clinicians Facility Department ID 2021-09-26 Inpatient MOOSA, FB [facility] [id number] [facility] B 12:32:51 [facility] 2021-06-18 [facility] [id number] [place] 11:50:10 [facility] 2021-05-22 [facility] [id number] [place] 15:45:59 [facility] 2021-05-08 [facility] [id number] [place] 09:45:24 [facility] 2021-04-25 [facility] [id number] [place] 14:15:16 [facility] 2021-04-25 [facility] [id number] [place] 14:13:49 [facility] 2021-03-28 [facility] [id number] [place] 08:58:15 [facility] 2021-03-12 Out[facility] [id number] [place] 14:45:21 [facility] 2021-03-07 [facility] [id number] [place] 09:42:27 [facility] 2022-02-19 2022-02-19 Outpatient R [facility] [id number] [facility] 14:40:00 16:09:18 CHAUNCEY duncan [facility] 2022-02-19 2022-02-19 Urgent Chauncey Jane [facility] 1.2.840. [id number] Univers 14:40:00 15:00:00 Care Unknown, Attending HEALTH [id number] ity of [place] [id number] Kulwinder as SUMI?BLEA [phone] [address] MEDICAL OFFICE [facility] 2022-02-19 2022-02-19 Letter Joseph [facility] [id number] Univers 00:00:00 00:00:00 (Out) [facility] [id number] i ty of [place] [id number] Kulwinder as SUMI?BLEA [id number] [address] 2022-02-19 2022-02-19 Orders Doctor [facility] [id number] Univers 00:00:00 00:00:00 Only Unassigned, NANCY [id number] ity of [place] [facility] [id number] Kulwinder as [phone] [address] 2021-12-23 2021-12-23 Outpatient [facility] [id number] [place] 09:30:00 09:30:00 [facility] 2021-11-22 2021-11-22 [facility] [id number] [place] 09:10:00 09:45:58 Visit Azeema SUGAR [id number] [facility] [id number] [address] [id number] AND 2 WOMENS 2021-11-09 2021-11-09 Outpatient [facility] [id number] [place] 08:30:00 08:30:00 [facility] 2021-11-09 2021-11-09 Emergency E ELIZABETH, MAGUE FB [id number] FB 07:43:00 07:43:00 CELY 2021-11-06 2021-11-06 Routine Palmer [facility] [id number] [place] 14:00:00 14:08:37 Azeema SU[place] [id number] H [facility]alth [place] [facility] [id number] [address] [id number] AND 2 WOMENS 2021-10-31 2021-10-31 Routine Cobb [facility] 1.2.840.114 [id number] [place] 10:45:00 10:50:24 Ashtyn [place] [id number] Health [place] [id number] [address] [phone] AND 2 WOMENS 2021-10-30 2021-10-30 Telephone Ilene Womack [facility] 1.2.840.1 14 [id number] [place] 00:00:00 00:00:00 Ilene Womack [place] [id number] Health [place] [id number] [address] 8 [phone] AND 2 WOMENS 2021-10-24 2021-10-24 Routine Palmer [facility] [id number] [place] 12:00:00 12:26:12 Azeema SU[place] [id number] H ealth [place] [id number] [address] 2 [id number] AND 2 WOMENS 2021-10-10 2021-10-10 Routine Palmer [facility] [id number] [place] 10:20:00 10:40:55 Azeema SUGAR [id number] H ealth [place] [id number] [address] 1 [phone] AND 2 WOMENS 2021-10-10 2021-10-10 Telephone Ilene Womack [facility] 1.2.840.1 14 [id number] [place] 00:00:00 00:00:00 Ilene Womack [place] [id number] Health [place] [id number] [address] 4 [id number] AND 2 WOMENS 2021-10-04 2021-10-04 Telephone Ilene Womack [facility] 1.2.840.1 14 [id number] [place] 00:00:00 00:00:00 Ilene Womack [place] [id number] Health [place] [id number] [address] [id number] AND 2 WOMENS 2021-09-26 2021-09-26 Routine Movonda, [facility] 1.2.840.114 [id number] [place] 11:20:00 12:03:15 Azeema [place] [id number] H ealth [place] [id number] [address] 8 [id number] AND 2 WOMENS 2021-09-10 2021-09-10 Routine Movonda, [facility] 1.2.840.114 [id number] [place] 09:10:00 09:26:35 Azeema SUGAR [id number] H ealth [place] [id number] [address] 4 [id number] AND 2 WOMENS 2021-08-16 2021-08-16 Telephone Ilene Womack [facility] 1.2.840.1 14 [id number] [place] 00:00:00 00:00:00 Ilene Womack [place] [id number] Health [place] [id number] [address] 6 [id number] AND 2 WOMENS 2021-08-13 2021-08-13 Routine Movonda, [facility] 1.2.840.114 [id number] [place] 10:50:00 11:32:17 Azeema SUGAR [id number] H ealth [place] [id number] [address] [id number] AND 2 WOMENS 2021-07-16 2021-07-16 Routine Movonda, [facility] 1.2.840.114 [id number] [place] 10:10:00 10:13:56 Azeema SUGAR [id number] H ealth [place] [id number] [address] 0 [id number] AND 2 WOMENS 2021-06-18 2021-06-18 Routine Moosa, [facility] [id number] [place] 11:30:00 11:50:51 Azeema SUGAR [id number] H ealth [place] [id number] [address] 1 [id number] AND 2 WOMENS 2021-05-21 2021-05-21 Routine Palmer [facility] 1.2.840.114 [id number] [place] 11:10:00 12:05:58 Azeema SUGAR [id number] [facility] [place] [id number] [address] 5 [id number] AND 2 WOMENS 2021-04-25 2021-04-25 Initial Palmer [facility] 1.2.840.114 [id number] [place] 13:40:00 14:15:12 [facility]ema [id number] [facility] [id number] [address] 7 [phone] AND 2 WOMENS 2021-03-28 2021-03-28 Office Palmer [facility] 1.2.840.114 [id number] [place] 12:00:00 12:40:29 Visit Azeema [id number] [facility] MED [id number] [address] 8 [id number] AND 2 WOMENS 2021-03-28 2021-03-28 Telephone Ilene Womack [facility] 1.2.840.1 14 [id number] [place] 00:00:00 00:00:00 Ilene Womack [place] [id number] [facility] [place] [id number] [address] 6 [id number] AND 2 WOMENS 2020-11-01 2020-11-01 Telephone Ilene Womack [facility] 1.2.840.1 14 [id number] [place] 00:00:00 00:00:00 Ilene Womack [place] [id number] [facility] [place] [id number] [address] 4 [id number] AND 2 WOMENS 2020-10-22 2020-10-22 Office Palmer [facility] 1.2.840.114 [id number] [place] 11:15:03 11:52:07 Visit Azeema [place] [id number] [facility] [place] [id number] PLA[place] 0 [id number] AND 2 WOMENS 2020-06-26 2020-06-26 Patient [facility] [id number] 00:00:00 00:00:[address] [facility] [id number] [facility] [id number] GRAC[place]AR[place]A [id number] 2020-04-11 2020-04-[address] [facility] Women's [id number] [place] 14:40:00 14:40:00 t; [facility] Center Jennifer Robles M.D. 2020-02-10 2020-02-[address] [facility] Women's [id number] [place] 09:10:00 09:10:00 t; [facility] Center Jennifer Robles M.D. 2019-11-18 2019-11-[address] [facility] Women's [id number] [place] 09:50:00 09:50:00 t; [facility] Center Jennifer Robles M.D. 2019-05-11 2019-05-11 [facility]phone [facility] [id number] 00:00:00 00:00:00 Mira Garcia [employer] [id number] [facility] [id number] MATERNAL [id number] & CHILD [address] [place] [address] 2019-04-11 2019-04-11 Emergency [facility] MIGUEL ANGEL [id number] 20:30:00 20:30:00 [facility] 2018-08-05 2018-08-[address] [facility] Women's [id number] [place] 09:20:00 09:20:00 t; JOHAN CHAKRABORT[facility] Center Phys ici AZEEMA, M.D. [place] ans M.D. 2017-08-04 2017-08-[address] [facility] Women's [id number] [place] 15:00:00 15:00:00 t; JOHAN CHAKRABORT[facility] Center Phys ici AZEEMA, M.D. [facility] tung Rodriguez 2017-05-01 2017-05-01 Appointmen [facility] [id number] [place] 10:10:00 10:10:00 t; JOHAN CHAKRABORTY Center Phys ici AZEEMA, M.D. [facility] tung Rodriguez 2017-04-02 2017-04-02 Appointmen [facility] Women[facility] [id number] [place] 13:00:00 13:00:00 t; JOHAN CHAKRABORTY Center Phys ici AZEEMA, M.D. [facility] tung Rodriguez 2017-03-12 2017-03-12 Appointmen [facility] Women[facility] [id number] [place] 09:20:00 09:20:00 t; JOHAN CHAKRABORTY Center Phys ici AZEEMA, M.D. [facility] tung Rodriguez 2017-03-05 2017-03-05 Appointmen [facility] Women[facility] [id number] [place] 09:20:00 09:20:00 t; JOHAN CHAKRABORTY Center Phys ici AZEEMA, M.D. [facility] tung Rodriguez 2017-02-25 2017-02-25 Appointmen [facility] Women[facility] [id number] [place] 09:00:00 09:00:00 t; JOHAN CHAKRABORTY Center Phys ici AZEEMA, M.D. [facility] tung Rodriguez 2017-02-20 2017-02-[address] [facility] Women's [id number] [place] 15:00:00 15:00:00 t; JOHAN CHAKRABORTY Center Phys ici AZEEMA, M.D. [facility] tung Rodriguez 2017-02-19 2017-02-[address] [facility] Women's [id number] [place] 10:20:00 10:20:00 t; JOHAN CHAKRABORTY Center Phys ici AZEEMA, M.D. [facility] tung Rodriguez 2017-02-05 2017-02-05 Appointmen [facility] [id number] [place] 10:20:00 10:20:00 t; JOHAN CHAKRABORTY Phys ici AZEEMA, M.D. ans M.D. 2017-01-22 2017-01-22 [facility] UTP [id number] [place] 09:40:00 09:40:00 t; JOHAN CHAKRABORTY Phys ici AZEEMA, M.D. ans M.D. 2017-01-08 2017-01-08 [facility] UTP [id number] [place] 09:20:00 09:20:00 t; JOHAN CHAKRABORTY Phys Jennifer Osorio MMarvin 2016-12-25 2016-12-25 [facility] UTP [id number] [place] 09:30:00 09:30:00 t; JOHAN CHAKRABORTY Phys ici AZEEMA, M.D. ans M.D. 2016-12-11 2016-12-11 [facility] UTP [id number] [place] 09:30:00 09:30:00 t; JOHAN CHAKRABORTY Phys ici AZEEMA, M.D. ans M.D. 2016-11-28 2016-11-28 [facility] KEVINVONDA, [facility] UTP [id number] [place] 09:30:00 09:30:00 t; JOHAN CHAKRABORTY Phys ici AZEEMA, M.D. ans M.D. 2016-11-14 2016-11-14 [facility] KEVINV[facility]DA, [facility] UTP [id number] [place] 09:30:00 09:30:00 t; JOHAN CHAKRABORTY Phys ici AZEEMA, M.D. ans M.D. 2016-10-20 2016-10-20 [facility] UTP [id number] [place] 12:30:00 12:30:00 t; JOHAN CHAKRABORTY Phys Jennifer Osorio M.Janice 2016-10-17 2016-10-17 [facility] UTP [id number] [place] 13:00:00 13:00:00 t; JOHAN CHAKRABORTY Phys Jennifer Osorio M.Janice 2016-10-02 2016-10-02 [facility] UTP [id number] [place] 14:00:00 14:00:00 t; JOHAN CHAKRABORTY Phys Jennifer Osorio M.Janice 2016-09-22 2016-09-[address] [facility] [id number] [place] 12:30:00 12:30:00 t; JOHAN CHAKRABORTY Phys ici AZEEMA, M.D. ans M.D. 2016-08-25 2016-08-[address] [facility] [id number] [place] 12:00:00 12:00:00 t; JOHAN CHAKRABORTY Phys ici AZEEMA, M.D. ans M.D. 2016-07-28 2016-07-28 Jvshaquille BROWNADAMARIS FERRARI [facility] [id number] [place] 12:00:00 12:00:00 t; JOHAN CHAKRABORTY Phys ici AZEEMA, M.D. ans M.D. Results Test Description Test Time Test Comments Results Result Comments Source POCT MOLECULAR STREP 2022-02-19 21:36:57 Test Item Value Reference Range Interpretation Comme [facility] POCT Molecular Strep (test code = 03572-5) Negative Negative Lab Interpretation (test code = 51778-5) Normal [facility] urinalysis dipstick manually resulted 2021-09-26 20:40:00 Test Item Value Reference Range Interpretation Comments Color, UA (test code = Yellow 1076) Clarity, UA (test code Clear = 9106988) Glucose, UA (test code Negative Negative = 8859446) Bilirubin, UA (test Negative Negative code = 7860249) Ketones, Urine (test Negative Negative, Trace code = 01243-3) Spec Grav, UA (test code = 377855627) Blood, UA (test code = Negative 242236151) pH, UA (test code = 5.0-8.5 6762269) Protein, UA (test code Negative Negative, Trace, = 7113536) 200(+2)mg/dL, 15/mg/dL Urobilinogen, UA (test See_Comment [Aut omated message] code = 1826530) The system [facility] generated this result transmit kortney reference range : 0.2. The refere nce range was not u sed to interpret th is result as normal/abnormal . Nitrite, UA (test code Negative Negative, Trace = 2514516) Leukocytes, UA (test Negative Negative, Trace code = 0790598) Lab Interpretation Normal (test code = 41923-1) [facility][QL] T4, [id number] 14:13:00 Test Item Value Reference Range Interpretation Comments T4, FREE (test code = T4, FREE) 1.2 ng/dl 0.8-1.8 N [facility][QL] TSH, 3RD [id number] 14:13:00 Test Item Value Reference Range Interpretation Comments TSH; Normal (test 0.64 {MIU/L} N Reference Range > or = code = 02773-0) 22 Years 0.4 0-4.50 Range s First trimester 0.26- 2.66 Second trimeste r 0.55-2.73 Third trimester 0.43- 2.91 [facility][QL] VITAMIN [id number] 14:13:00 Test Item Value Reference Range Interpretation Comments VITAMIN B12 (test code = VITAMIN 720 pg/ml 200-1100 N B12) [facility][QL] VITAMIN D, 25-HYDROXY, LC/MS/[id number] 14:13:00 Test Item Value Reference Range Interpretation Comments VITAMIN 13 ng/ml 30-100 Vitamin D Statu s 25-OH D,25-OH,TOTAL,IA Vitamin D: Deficiency: (test code = VITAMIN <20 ng/ mLInsufficiency: D,25-OH,TOTAL,IA) 20 - 29 ng /mLOptimal: > or = 30 ng/mL F or 25-OH Vitamin D testi ng on patients on D2-supplementat ion and patients for wh om quantitation of D2 and D3 fractions is required, the QuestAssureD(TM )25-OH VIT D, (D2,D3), LC/MS/MS is recommended: order code 08445 (pat ients >2yrs).See Note 1 Note 1 For additional information, pl ease refer to http://educatio n.OpenRoute.MoveEZ/f aq/FPZ402 (This link is b eing provided for informational/e ducationa l purposes only .) [facility][QL] HCG, TOTAL, [id number] 14:58:00 Test Item Value Reference Range Interpretation Comments HCG, TOTAL, QN <3 N Reference Ran geNon or (test code = HCG, premenopau elizabeth <5Postmenopausal TOTAL, QN) <10 Values from different assay methods m ay vary.The use of this assay t o monitor or to diagnose patien ts with cancer or any conditio n unrelatedto has n ot been cleared or approved byt he FDA or the metal model builder of the assay. [facility][O] Urine Test (in office)2020-02-10 09:22:00 Test Item Value Reference Range Interpretation Comments Test, Urine; Normal (test negative N code = 2106-3) [facility][Q] HIV-1/2 Antigen and Antibodies, Fourth Generation, with [id number] 00:00:00 Test Item Value Reference Range Interpretation Comments HIV AG/AB, 4TH GEN; TNP N TEST NOT PERFORMED No Normal (test code = suitable specimen 92842-5) received. [facility][Q] HEPATITIS B SURFACE ANTIGEN W/REFL [id number] 00:00:00 Test Item Value Reference Range Interpretation Comments HEPATITIS B SURFACE TNP N TEST NOT PERFORMED No ANTIGEN; Normal (test suitab le specimen code = 5195-3) received. [facility][QL] HEPATITIS C [id number] 00:00:00 Test Item Value Reference Range Interpretation Comments HEPATITIS C ANTIBODY; TNP N TEST N OT PERFORMED No Normal (test code = suitable specimen 36338-6) received. [facility][QL] BV/ VAGINITIS PANEL DNA PROBE [id number] 00:00:00 Test Item Value Reference Range Interpretation Comments TRICHOMONAS: (test code = NOT DETECTED NOT DETECTED N TRICHOMONAS:) GARDNERELLA: (test code = NOT DETECTED NOT DETECTED N GARDNERELLA:) SINDI: (test code = SINDI:) NOT DETECTED NOT DETECTED N [facility][Q] CHLAMYDIA/N. GONORRHOEAE RNA, [id number] 00:00:00 Test Item Value Reference Range Interpretation Comments CHLAMYDIA NOT DETECTED NOT DETECTED N TRACHOMATIS RNA, TMA, UROGENITAL; Normal (test code = 94095-0) NEISSERIA NOT DETECTED NOT DETECTED N GONORRHOEAE RNA, TMA, UROGENITAL; Normal (test code = 11825-7) See Comment (test See Comment The analyt ical code = See Comment) performa nce characteristics of thisassay, when used to test SurePat h(TM) specimens have beendetermined by [employer]. The modifications h avenot been cleared or approved by the FDA. This assay hasb een validated pursu ant to the CLIA regula tions and isused for clinical purpos es. For additional information, pl ease refer tohttps://educa tion.Confabb/faq /KJO491(This li nk is being provided for information/edu cationa l purposes only .) [facility][QL] RPR (DX) W/REFL TITER AND CONFIRMATORY [id number] 00:00:00 Test Item Value Reference Range Interpretation Comments RPR (DX) W/REFL TITER AND TNP N TE ST NOT PERFORMED No CONFIRMATORY TESTING (test s uitable specimen code = RPR (DX) W/REFL recei marco antonio. TITER AND CONFIRMATORY TESTING) [facility][QL] LIPID [id number] 10:45:00 Test Item Value Reference Range Interpretation Comments CHOLESTEROL, TOTAL; 152 mg/dl <200 N Normal (test code = 2093-3) HDL CHOLESTEROL; 52 mg/dl > OR = 50 N Normal (test code = 2085-9) TRIGLYCERIDES; 44 mg/dl <150 N Normal (test code = 2571-8) LDL-CHOLESTEROL; 87 {MG/DL ACOSTA} N Reference range: Normal (test code = <100 Rishabh irable range 64702-6) <100 mg/dL for primary prevent ion; <70 mg/dL for patients with C HD or diabetic patien ts with > or = 2 C HD risk factors. L DL-C is now calculat ed using the Jamie calculation, wh ich is a validated novel method providin g better accuracy than the Friedewald equation in the estimation of L DL-C. Silvestre YOUSIF et al . SIVAN. 2013;310( 19): 6879-7327 (http://educati on.Jumblets. com/f aq/TOS425) CHOL/HDLC RATIO 2.9 {CALC} <5.0 N (test code = CHOL/HDLC RATIO) NON HDL CHOLESTEROL 100 {MG/DL <130 N For kristi ents with (test code = NON HDL ACOSTA} diabete s plus 1 CHOLESTEROL) major ASCVD ris k factor, treatin g to a non-HDL-C goa l of <100 mg/dL (LDL -C of <70 mg/dL) is considered a therapeutic opt ion. [facility][QL] CBC (INCLUDES DIFF/PLT)2019-11-18 10:45:00 Test Item Value Reference Range Interpretation Comments WHITE BLOOD CELL COUNT 5.8 {Thousand/u} 3.8-10.8 N (test code = WHITE BLOOD CELL COUNT) RED BLOOD CELL COUNT (test 4.57 {Million/uL} 3.80-5.10 N code = RED BLOOD CELL COUNT) HEMOGLOBIN; Normal (test 12.7 g/dl 11.7-15.5 N code = 87201-4) HEMATOCRIT; Normal (test 38.8 % 35.0-45.0 N code = 4544-3) MCV; Normal (test code = 84.9 fL 80.0-100.0 N 787-2) MCHC; Normal (test code = 32.7 g/dl 32.0-36.0 N 34941-2) RDW; Normal (test code = 13.4 % 11.0-15.0 N 788-0) PLATELET COUNT; Normal 156 {Thousand/u} 140-400 N (test code = 777-3) MPV; Above High Threshold 13.3 fL 7.5-12.5 (test code = 78103-9) ABSOLUTE NEUTROPHILS (test 3178 {cells/uL} 5430-4627 N code = ABSOLUTE NEUTROPHILS) ABSOLUTE LYMPHOCYTES [...] Normal (test 6.3 % N code = 78807-4) EOSINOPHILS; Normal (test 4.8 % N code = 24260-1) BASOPHILS; Normal (test 0.7 % N code = 72619-6) [facility][QL] T4, [id number] 10:45:00 Test Item Value Reference Range Interpretation Comments T4, FREE (test code = T4, FREE) 1.2 ng/dl 0.8-1.8 N [facility][QL] TSH, 3RD [id number] 10:45:00 Test Item Value Reference Range Interpretation Comments TSH; Normal (test 1.00 {MIU/L} N Reference Range > or = code = 37832-1) 22 Years 0.4 0-4.50 Range s First trimester 0.26-2.66 Secon d trimester 0.55- 2.73 Third trimester 0.43-2.91 [facility][QL] HEMOGLOBIN [id number] 10:45:00 Test Item Value Reference Range Interpretation Comments HEMOGLOBIN A1c; 5.3 {% of <5.7 N For the purp ose of Normal (test code total} screening for the = 4548-4) presence ofdiab etes: <5.7% Consisten t with the absence of diabetes5.7-6.4 % Consistent with increased risk for diabetes (predi abetes)> or =6.5% Consis tent with diabetes T his assay result is consistent with a decreased risko f diabetes. Curre ntly, no consensus exist s regarding use ofhemoglobin A1 c for diagnosis of di abetes in children. Ac cording to [place] betes Association (ADA)guidelines , hemoglobin A1c <7.0% represents optimalcontrol in non- di abetic patients. Differentmetric s may apply to specif ic patient populat ions. Standards of Me dical Care in Diabete s(ADA). [facility][Q] THINPREP TIS PAP REFLEX HPV mRNA [id number] 00:00:00 Test Item Value Reference Range Interpretation [...] Normal (test intraepit helial lesion code = 72346-0) or malignanc y. COMMENT:; Normal See Comment N This Pap te st has been (test code = evaluated with ) computerassiste d technology. 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 [facility][QL] BV/ VAGINITIS PANEL DNA PROBE [id number] 00:00:00 Test Item Value Reference Range Interpretation Comments TRICHOMONAS: (test code = NOT DETECTED NOT DETECTED N TRICHOMONAS:) GARDNERELLA: (test code = NOT DETECTED NOT DETECTED N GARDNERELLA:) SINDI: (test code = SINDI:) NOT DETECTED NOT DETECTED N [facility] [id number] 16:26:57 Test Item Value Reference Range Interpretation [...] = 02-04-2020 N Expiration Dt) Thyroid Stimulating [id number] 11:20:02 Test Item Value Reference Range Interpretation Comments TSH (test code = TSH) 1.240 mIU/mL 0.270-4.200 Lipid [id number] 11:15:20 Test Item Value Reference Range Interpretation Comments Cholesterol Total 155 mg/dL 0-200 RISK OF HE ART (test code = DISEASEPublishe d by Cholesterol Total) [place] [employer] Cecilia lyte Optimal Borderl ine Increased RiskC HOL <200 200-239 >240TRI G <150 150-199 >200HDL Male >60 <40HDL Fema le >60 <50LDL <100 130 -159 >160LDL Near op timal is 100-129 Triglycerides (test 63 mg/dL 9-200 [...] LDL/HDL Ratio=L DL Calc/HDL Chol Urine Drug [id number] 22:17:44 Test Item Value Reference Range Interpretation [...] matory test if desired . HCG Qualitative [id number] 22:17:43 Test Item Value Reference Range Interpretation Comments hCG Ur (test code = Positive If the r esult is hCG Ur) "Negative" in p atients suspected to be , recom mend retest with a s ample obtained 48 to 72 hours later, or by ordering a quantitative as say. If the result is "Borderline" te sting should be repea kortney in 48 to 72 hours. Lot # (test code = [id number] N Lot #) Expiration Dt (test 2020-05-06 N code = Expiration Dt) Neg Control (test Negative code = Neg Control) Pos Control (test Positive code = Pos Control) Internal QC (test Acceptable code = Internal QC) Urinalysis with Culture, if [id number] 21:59:26 Test Item Value Reference Range Interpretation [...] Ind?) rule GL_SJM_UA_MICRO _IN D Comprehensive Metabolic [id number] 21:49:42 Test Item Value Reference Range Interpretation [...] A/G 1.2 ratio N Ratio) Comprehensive Metabolic [id number] 21:49:42 Test Item Value Reference Range Interpretation [...] the National Kidney Foundation, http://nkdep.ni h.gov Alcohol [id number] 21:49:42 Test Item Value Reference Range Interpretation Comments Ethanol Level (test <0.00 g/dL 0.00-0.01 Intoxica kortney 0.080 g/dL code = Ethanol or more Level) Ethanol Inst (test <0 N code = Ethanol Inst) Comprehensive Metabolic [id number] 21:49:42 Test Item Value Reference Range Interpretation [...] Foundation, http://nkdep.ni h.gov Complete Blood Count with [id number] 21:48:40 Test Item Value Reference Range Interpretation [...] code = IPF) 0 % N Automated [id number] 21:48:40 Test Item Value Reference Range Interpretation Comments Neutro Auto (test code = Neutro 62.7 % 36.0-70.0 Auto) Lymph Auto (test code = Lymph Auto) 27.0 % 12.0-44.0 [place] Auto (test code = [place] Auto) 6.5 % 0.0-11.0 Eos, Auto (test code = Eos, Auto) 3.0 % 0.0-7.0 Basophil Auto (test code = Basophil 0.1 % 0.0-2.0 Auto) Neutro Absolute (test code = Neutro 5.4 x10 1.6-7.4 Absolute) Lymph Absolute (test code = Lymph 2.34 x10 .50-4.60 Absolute) [place] Absolute (test code = [place] .56 x10 .00-1.20 Absolute) Eos Absolute (test code = Eos 0.26 x10 0.00-0.74 Absolute) Baso Absolute (test code = Baso 0.01 x10 0.00-0.21 Absolute) IG [id number] 21:48:40 Test Item Value Reference Range Interpretation [...] 13.4 g/dl 12.0-16.0 Hct (test code = 64424-1) 41.0 % 36.0-48.0 MCV (test code = 787-2) 88.1 fL 80.0-98.0 MCH (test code = 785-6) 28.7 pg 27.0-31.0 MCHC (test code = 786-4) 32.6 g/dl 32.0-36.0 RDW (test code = 788-0) 14.3 % 11.5-14.5 Platelet; Below Low Threshold 132 {K/CMM} 133-450 (test code = 73225-4) Mean Platelet Volume; Above High 11.7 fL 7.4-10.4 Threshold (test code = 66896-1) [facility][QL] [id number] 09:52:01 Test Item Value Reference Range Interpretation Comments Segmented Neutrophils (test code 56.2 % 45.0-75.0 = 34090-5) Monocytes (test code = 27630-0) 7.4 % 2.0-12.0 Lymphocytes (test code = 63677-2) 31.9 % 20.0-40.0 Eosinophils (test code = 50149-3) 4.0 % 0.0-4.0 Basophils (test code = 706-2) 0.5 % 0.0-1.0 Segs-Bands # (test code = 3.3 {K/CMM} 1.5-8.1 16438-8) Lymphocytes # (test code = 1.8 {K/CMM} 1.0-5.5 81467-1) Monocytes # (test code = 98115-3) 0.4 {K/CMM} 0.0-0.8 Eosinophils # (test code = 0.2 {K/CMM} 0.0-0.5 48973-4) [facility][QL] HEMOGLOBIN [id number] 09:52:01 Test Item Value Reference Range Interpretation Comments Hemoglobin A1c; Above High Threshold 5.9 % <=5.6 (test code = 4548-4) [facility][] HEPATITIS B SURFACE ANTIGEN W/REFL [id number] 09:52:01 Test Item Value Reference Range Interpretation Comments Hepatitis B Surface Antigen (test Negative Negative code = 5195-3) [facility][QL] CMP [id number] 09:52:01 Test Item Value Reference Range Interpretation Comments Sodium Level 139 {mEq/l} 135-145 (test code = 2951-2) Potassium Level 4.2 {mEq/l} 3.5-5.1 (test code = 2823-3) Chloride Level 106 {mEq/l} 95-109 (test code = 2075-0) Carbon Dioxide 24 {mEq/l} 24-32 (test code = 2027-9) AGAP (test code = 13.2 {mEq/l} 10.0-20.0 03397-9) Glucose Lvl (test 81 mg/dl 70-99 Adult refe rence range code = 2345-7) values reflec t the clinical guidel inesof the [place] Diabet es Association. Creatinine Lvl 1.00 mg/dl 0.50-1.40 (test code = 2160-0) Blood Urea 15 mg/dl 7-22 Nitrogen (test code = 3094-0) BUN/Creatinine 15 6-25 Ratio (test code = 3097-3) Total Protein 7.9 g/dl 6.4-8.4 (test code = 2885-2) Albumin Lvl (test 3.9 g/dl 3.5-5.0 code = 1751-7) Globulin (test 4.0 g/dl 2.7-4.2 code = 82188-8) A/G Ratio (test 1.0 0.7-1.6 code = 1759-0) Calcium Level 9.1 mg/dl 8.5-10.5 Total (test code = 73149-2) ALT (test code = 15 u/l 0-65 1743-4) AST (test code = 12 u/l 0-37 46800-2) Alk Phos (test 82 u/l 39-136 code = 1783-0) Bili Total (test 0.4 mg/dl 0.2-1.3 code = 1974-2) eGFR (test code = 78 The eGFR i s calculated 02496-7) {ML/MIN/1.7} using the CKD-E PI formula. In [...] be multiplied by t he estimated BMI. [facility]] LIPID [id number] 09:52:01 Test Item Value Reference Range Interpretation Comments Chol (test code = 2093-3) 155 mg/dl <=199 Trig (test code = 2571-8) 55 mg/dl <=149 HDL Cholesterol; Below Low 59 mg/dl >=61 Threshold (test code = 2085-9) CHD Risk; Below Low Threshold (test 2.63 3.90-5.80 code = 19206-9) LDL (test code = 90761-8) 85 mg/dl <=99 VLDL (test code = VLDL) 11 [facility][QL] T4, [id number] 09:52:01 Test Item Value Reference Range Interpretation Comments T4 Free (test code = 3024-7) 1.18 ng/dl 0.76-1.46 [facility][QL] TSH, 3RD [id number] 09:52:01 Test Item Value Reference Range Interpretation Comments TSH (test code = 49112-3) 0.715 {uIU/ml} 0.360-3.740 [facility][QL] HEPATITIS C [id number] 09:52:01 Test Item Value Reference Range Interpretation Comments Hepatitis C Antibody (test code = Negative 38348-1) [facility][] HIV AB, HIV 1/2, EIA, WITH [id number] 09:52:01 Test Item Value Reference Range Interpretation Comments HIV Ag/Ab 4th Gen Negative Negative HIV test r esults should be (test code = considered posi tive only 64117-4) when both the s creening andthe confirma tory tests are positive. A negative confirmatory te st in patientswith a positive screening test does not exclude HIV inf ection. If clincallywarran kortney, an HIV RNA quantitativ e test should be order ed. [facility][QL] VITAMIN D, 25-HYDROXY, LC/MS/[id number] 09:52:01 Test Item Value Reference Range Interpretation Comments Vitamin D, 25-OH, 14.5 ng/ml 30.0-100.0 Reference range is based Total (test code on recommen dations in the = Vitamin D, EndocrineSociet y Clinical 25-OH, Total) Practice Guide line (J Clin Endocrinol Pbfrr0246;96:19 11-1930) [facility][QL] [id number] 09:52:01 Test Item Value Reference Range Interpretation Comments RPR (test code = 74380-3) Non-Reactive Non-Reactive [facility]. [facility] - GC/Ehoqdvkre5827-03-25 00:00:00 Test Item Value Reference Range Interpretation Comments GC/Chlamydia REPORT (test code = See Comment 31709-2) [facility][H] HIV 4th Gen w/ [id number] 16:08:01 Test Item Value Reference Range Interpretation Comments HIV Ag/Ab 4th Gen (test code = HIV Negative Negative Ag/Ab 4th Gen) [facility]] CBC (INCLUDES DIFF/PLT)2017-02-20 16:08:01 Test Item Value Reference Range Interpretation Comments WBC (test code = WBC) 10.9 {K/CMM} 3.7-10.4 RBC (test code = RBC) 4.14 {M/CMM} 4.20-5.40 Hgb (test code = 28206-5) 12.4 g/dl 12.0-16.0 Hct (test code = [...] 11.7 fL 7.4-10.4 = Mean Platelet Volume) [facility][QL] [id number] 16:08:01 Test Item Value Reference Range Interpretation Comments Segmented Neutrophils; Above High 75.6 % 45.0-75.0 Threshold (test code = 97244-6) Monocytes #; Above High Threshold 0.9 {K/CMM} 0.0-0.8 (test code = 90874-2) Lymphocytes (test code = 15.1 % 20.0-40.0 Lymphocytes) Eosinophils # (test code = 0.1 {K/CMM} 0.0-0.5 13320-6) Basophils (test code = 90259-8) 0.2 % 0.0-1.0 Segs-Bands #; Above High 8.2 {K/CMM} 1.5-8.1 Threshold (test code = 78987-8) Lymphocytes # (test code = 1.6 {K/CMM} 1.0-5.5 65020-3) [facility]] [id number] 16:08:01 Test Item Value Reference Range Interpretation Comments RPR (test code = 29756-7) Non Reactive Non Reactive [facility][] STREPTOCOCCUS, GROUP B CULTURE (Genital Strep Screen) 2017-02-20 16:08:01 Test Item Value Reference Range Interpretation Comments FINAL REPORT (test No Beta-Hemolytic code = FINAL REPORT) Streptococci Isolated [facility]
[2022-06-13 13:51] LABS: Absolute Lymphocytes (CBC) 2.6 K/uL (0.7-4.9); Hematocrit 38.6 % (36.0-45.0); Lymphocytes % 38.1 % (15.3-44.8); MPV 10.3 fL (7.6-11.3); RBC Red Blood Cell Count 4.49 M/uL (3.86-4.86)
[2022-06-13 14:08] LABS: Albumin 3.7 g/dL (3.4-5.0); Bilirubin Total 0.2 mg/dL (0.2-1.0); Potassium 3.5 mmol/L (3.5-5.1); Protein, Total 8.2 g/dL (6.4-8.2)
[2022-06-13 14:16] LABS: Urine Blood Negative (Negative); Urine Glucose Negative (Negative); Urine Protein Negative (Negative); Urine Specific Gravity >=1.030 (1.005-1.030); Urine pH 5.5 (5.0-7.0)
--- NOTE | 2022-06-13 14:50 | RAD REPORT ---
EXAM DESCRIPTION: US - Abdomen Exam Limited - 06/13/2022 1:55 pm CLINICAL HISTORY: right sided abdominal pain COMPARISON: CT abdomen and pelvis of the same date TECHNIQUE: Sonographic grayscale and color flow images of the right upper quadrant were obtained. FINDINGS: The gallbladder demonstrates no gallstones. No pericholecystic fluid or gallbladder wall t hickening. The common bile duct is normal measuring 5 mm. The liver demonstrates no findings of intrahepatic biliary dilatation. IMPRESSION: Unremarkable right upper quadrant ultrasound.
--- NOTE | 2022-06-13 15:05 | RAD REPORT ---
EXAM DESCRIPTION: CT - Abdomen Pelvis W Contrast - 06/13/2022 2:41 pm CLINICAL HISTORY: right sided abdominal pain COMPARISON: Abdomen Exam Limited dated 06/13/2022 TECHNIQUE: Thin cut axial CT imaging of the abdomen and pelvis was performed following intravenous a dministration of 95 mL Isovue 300. Multiplanar reformats were generated and reviewed. All CT scans are performed using dose optimization technique as appropriate and may include automated exposure control or mA/KV adjustment according to patient size. FINDINGS: No suspicious findings in the lung bases. The liver, spleen, and pancreas show no suspicious findings. Gallbladder and biliary tree are also wi thout suspicious finding. Symmetric renal function is seen with no hydronephrosis or suspicious renal mass. No dilated bowel loops or bowel wall thickening. No free air or inflammatory stranding. Diastasis rec ti. Small umbilical hernia containing fat and small bowel. No suspicious mass or bulky lymphadenopath y. Uterus is retroverted and retroflexed. Small adnexal cystic lesions, likely physiologic. Urinary b ladder is decompressed, limiting evaluation in, with mild wall prominence that could be related to no ndistention. Small volume of free fluid is seen interposed between small bowel and the bladder dome. No suspicious bony findings. IMPRESSION: No acute intra-abdominal process. Small volume of free fluid in the pelvis, probably physiologic. The uterus is retroverted and retroflexed. Urinary bladder is decompressed, limiting its evaluation, with mild wall prominence that could be rel ated to nondistention. Small umbilical hernia containing fat and small bowel.
[2022-06-13 16:09] VITALS: TEMP 98.6
[2022-06-13 16:10] VITALS: BP 110/87; O2SAT 100
--- NOTE | 2022-06-27 16:10 | ER ---
Nurse's Notes [facility] Name: Alecia Rhodes Age: 31 yrs Sex: Female : 1990 Arrival Date: 06/13/2022 Time: 12:51 Bed 12 Private MD: Diagnosis: Abdominal pain, unspecified Presentation: 06/13 13:08 Chief complaint: Patient states: RLQ pain that radiates to back x 1 week, comes and ph goes, denies fever N/V/D. Coronavirus screen: Vaccine status: Patient reports receiving the 2nd dose of the covid vaccine. Ebola Screen: No symptoms or risks identified at this time. Initial Sepsis Screen: Does the patient meet any 2 criteria? No. Patient's initial sepsis screen is negative. Does the patient have a suspected source of infection? No. Patient's initial sepsis screen is negative. Risk Assessment: Do you want to hurt yourself or someone else? Patient reports no desire to harm self or others. Onset of symptoms was June 13, 2022. 13:08 Method Of Arrival: Ambulatory ph 13:08 Acuity: RICHARD 3 ph Historical: - Allergies: 13:10 No Known Allergies; ph - PMHx: 13:10 ulcerative colitis; ph - PSHx: 13:10 section; ph - Immunization history:: Adult Immunizations unknown. - Social history:: Smoking status: Patient denies any tobacco usage or history of. Patient/guardian denies using alcohol. Screenin:55 [facility] ED Fall Risk Assessment (Adult) History of falling in the last 3 months, mb9 including since admission No falls in past 3 months (0 pts) Confusion or Disorientation No (0 pts) Intoxicated or Sedated No (0 pts) Impaired Gait No (0 pts) Mobility Assist Device Used No (0 pt) Altered Elimination No (0 pt) Score/Fall Risk Level 0 - 2 = Low Risk Oriented to surroundings, Maintained a safe environment, Educated pt \T\ family on fall prevention, incl call for assistance when getting out of bed. Abuse screen: Denies threats or abuse. Nutritional screening: No deficits noted. Tuberculosis screening: No symptoms or risk factors identified. Assessment: 13:29 Reassessment: pt brought back to ER room. mb9 14:16 General: Appears in no apparent distress. Behavior is calm, cooperative, appropriate mb9 for age. Pain: Complains of pain in RLQ. Neuro: Level of Consciousness is awake, alert, obeys commands, Oriented to person, place, time, situation, Appropriate for age. Cardiovascular: Patient's skin is warm and dry. Respiratory: Airway is patent Respiratory effort is even, unlabored, Respiratory pattern is regular, symmetrical. GI: Abdomen is round non-distended, Bowel sounds present X 4 quads. Abd is soft Abdomen is tender to palpation in right lower quadrant. : Urine is clear. Derm: Skin is normal. Musculoskeletal: Range of motion: intact in all extremities, Reports. Musculoskeletal: Reports pain in right lower back. 14:35 Reassessment: pt taken to CT via wheelchair. mb9 15:31 Reassessment: No changes from previously documented assessment. Patient and/or family mb9 updated on plan of care and expected duration. Pain level reassessed. Patient is alert, oriented x 3, equal unlabored respirations, skin warm/dry/pink. Vital Signs: 13:08 BP 107 / 91; Pulse 67; Resp 18; Temp 98.6; Pulse Ox 99% on R/A; Weight 77.11 kg; Height ph 5 ft. 6 in. ; 15:31 BP 110 / 87; Pulse 74; Resp 18; Pulse Ox 100% ; mb9 13:08 Body Mass Index 27.44 (77.11 kg, 167.64 cm) ph ED Course: 12:51 Patient arrived in ED. jj6 12:53 Korey Treviño PA is PHCP. [facility] 12:53 Gerald Torres MD is Attending Physician. [facility] 13:10 Triage completed. ph 13:11 Arm band placed on Patient placed in waiting room, Patient notified of wait time. ph 13:40 Inserted saline lock: 20 gauge in right antecubital area, using aseptic technique. zm Blood collected. 13:40 CBC with Diff Sent. zm 13:40 CMP Sent. zm 13:40 Lipase Sent. zm 13:56 Placed in gown. Bed in low position. Call light in reach. Side rails up X 1. Client mb9 placed on continuous cardiac and pulse oximetry monitoring. NIBP monitoring applied. 13:57 US Abdomen Limited In Process Unspecified. EDMS 14:15 Anne Marie Peres, MIKHAIL is Primary Nurse. mb9 14:43 CT Abd/Pelvis - IV Contrast Only In Process Unspecified. EDMS 15:32 IV discontinued, intact, bleeding controlled, No redness/swelling at site. Pressure mb9 dressing applied. Administered Medications: No medications were administered Medication: 13:56 VIS not applicable for this client. mb9 Outcome: 15:28 Discharge ordered by . angelom 15:32 Discharged to home ambulatory. mb9 15:32 Condition: stable 15:32 Condition: stable 15:32 Discharge instructions given to patient, Instructed on discharge instructions, follow up and referral plans. Demonstrated understanding of instructions, follow-up care. 15:32 Patient left the ED. mb9 Signatures: Dispatcher [employer] EDMS Korey Treviño PA PA jmm Hall, Patricia, RN RN Regina Rios Zaina zm Breneman, Anne Marie Rodriguez, RN RN mb9
--- NOTE | 2022-06-27 16:10 | EDPHYS ---
Physician Documentation [facility] Name: Alecia Rhodes Age: 31 yrs Sex: Female : 1990 Arrival Date: 06/13/2022 Time: 12:51 Bed 12 Private MD: ED Physician Gerald Torres HPI: 06/13 13:20 This 31 yrs old Black Female presents to ER via Ambulatory with complaints of Abdominal jmm Pain. 13:20 The patient presents with abdominal pain. Onset: The symptoms/episode began/occurred jmm gradually, 1 week(s) ago. Is a 31-year-old female with history of ulcerative colitis the presents emerged part with complaints of right lower abdominal pain which radiates to the back. Complains of decreased appetite but denies vomiting or diarrhea. Denies fever.. Historical: - Allergies: 13:10 No Known Allergies; ph - PMHx: 13:10 ulcerative colitis; ph - PSHx: 13:10 section; ph - Immunization history:: Adult Immunizations unknown. - Social history:: Smoking status: Patient denies any tobacco usage or history of. Patient/guardian denies using alcohol. ROS: 13:20 Constitutional: Negative for fever, chills, and weight loss, Cardiovascular: Negative jmm for chest pain, palpitations, and edema, Respiratory: Negative for shortness of breath, cough, wheezing, and pleuritic chest pain. Exam: 19:24 Constitutional: This is a well developed, well nourished patient who is awake, alert, jmm and in no acute distress. Head/Face: atraumatic. Eyes: EOMI, no conjunctival erythema appreciated ENT: Moist Mucus Membranes Neck: Trachea midline, Supple Chest/axilla: Normal chest wall appearance and motion. Cardiovascular: Regular rate and rhythm. No edema appreciated Respiratory: Normal respirations, no respiratory distress appreciated 19:24 Back: Normal ROM Skin: General appearance color normal MS/ Extremity: Moves all extremities, no obvious deformities appreciated, no edema noted to the lower extremities Neuro: Awake and alert Psych: Behavior is normal, Mood is normal, Patient is cooperative and pleasant 19:24 Abdomen/GI: Inspection: abdomen appears normal, Bowel sounds: normal, Palpation: soft, mild abdominal tenderness, in the right lower quadrant. Vital Signs: 13:08 BP 107 / 91; Pulse 67; Resp 18; Temp 98.6; Pulse Ox 99% on R/A; Weight 77.11 kg; Height ph 5 ft. 6 in. ; 15:31 BP 110 / 87; Pulse 74; Resp 18; Pulse Ox 100% ; mb9 13:08 Body Mass Index 27.44 (77.11 kg, 167.64 cm) ph MDM: 13:20 Patient medically screened. [facility] 19:25 Differential diagnosis: appendicitis, non-specific abd pain, Ovarian Torsion, jmm Peritonitis, Pyelonephritis, Tubal Ovarian Abcess, Ureterolithiasis, urinary tract infection. Data reviewed: vital signs, nurses notes, lab test result(s), radiologic studies. Counseling: I had a detailed discussion with the patient and/or guardian regarding: the historical points, exam findings, and any diagnostic results supporting the discharge/admit diagnosis, lab results, radiology results, the need for outpatient follow up, to return to the emergency department if symptoms worsen or persist or if there are any questions or concerns that arise at home. 06/13 13:21 Order name: CBC with Diff; Complete Time: 14:00 [facility] 06/13 13:21 Order name: CMP; Complete Time: 14:09 [facility] 06/13 13:21 Order name: Lipase; Complete Time: 14:09 [facility] 06/13 14:16 Order name: Urine Dipstick-Ancillary; Complete Time: 14:22 [facility] 06/13 15:12 Order name: Urine --Ancillary (enter results) 06/13 13:21 Order name: CT Abd/Pelvis - IV Contrast Only; Complete Time: 15:07 [facility] 06/13 13:22 Order name: US Abdomen Limited; Complete Time: 14:52 [facility] 06/13 13:21 Order name: IV Saline Lock; Complete Time: 13:40 [facility] 06/13 13:21 Order name: Labs collected and sent; Complete Time: 13:40 [facility] 06/13 13:21 Order name: Urine Dipstick-Ancillary (obtain specimen); Complete Time: 14:15 [facility] 06/13 13:21 Order name: Urine Test (obtain specimen); Complete Time: 14:15 [facility] Administered Medications: No medications were administered Disposition Summary: 06/13/22 15:28 Discharge Ordered Location: Home [facility] Condition: Stable [facility] Diagnosis - Abdominal pain, unspecified [facility] Followup: [facility] - With: Private Physician - When: 2 - 3 days - Reason: Recheck today's complaints, Continuance of care, Re-evaluation by your physician Discharge Instructions: - Discharge Summary Sheet jm - Abdominal Pain, Adult [facility] Forms: - Medication Reconciliation Form [facility] - Thank You Letter shanta - Antibiotic Education angelo - Prescription Opioid Use [facility] Addendum: 06/16/2022 08:44 Co-signature as Attending Physician, Gerald Torres MD I reviewed the patient's care r n provided by the Advanced Practice Provider and agree with the diagnosis and treatment plan. Signatures: Dispatcher [employer] EDMS Korey Treviño PA PA jmm Nieto, Roman, MD MD rn Lisa Hartman RN RN ph
== END 2022-06-13 15:32 | disposition home or self-care (01) ==
LOC: ER 12:42
DX: R10.31 Right lower quadrant pain (principal)
CPT/HCPCS: 85025; 36415; 81025; 81003; 83690; 80053; 74177; 76705; 99283; Q9967